=== PATIENT | male | born 1965 | race Caucasian/White ===

== ENCOUNTER 2018-02-18 16:18 | Outpatient (CLI) | payer OTHER ==
[2018-02-18 16:52] LABS: % IRON SATURATION 12 % (20-50); IRON 45 ug/dL (45-182); TOTAL IRON BINDING CAPACITY 385 ug/dL (250-450); TRANSFERRIN 275 mg/dL (180-329)
== END 2018-02-18 16:19 | disposition home or self-care (01) ==
LOC: LAB 16:18
PROVIDERS: ATTEND Internal Medicine
DX: E83.110 Hereditary hemochromatosis (principal)
CPT/HCPCS: 36415; 82728; 83540; 84466

== ENCOUNTER 2018-02-27 13:08 | Emergency (ER) | payer OTHER ==
--- NOTE | 2018-02-27 13:50 | XRAY Preliminary Report ---
Exam: XR FINGER(S) RT IMPRESSION: 1. No fracture seen, however there are 2 tiny calcifications or bone fragments adjacent to the proxim al aspect first distal phalanx on lateral image. [facility] SITE ID: [id number]
--- NOTE | 2018-02-27 13:50 | XRAY Report ---
EXAM: RIGHT FIRST DIGIT RADIOGRAPHY EXAM DATE: 02/27/2018 01:33 PM. CLINICAL HISTORY: Trauma. COMPARISON: None. TECHNIQUE: 3 views. FINDINGS: Bones: No fracture deformity is seen. However, on the lateral image there are 2 tiny calcifications s een near the proximal aspect of distal phalanx near the soft tissue swelling. Joints: Normal. No subluxations. Soft Tissues: There is soft tissue swelling and irregularity without a metallic foreign body. IMPRESSION: 1. No fracture seen, however there are 2 tiny calcifications or bone fragments adjacent to the proxim al aspect first distal phalanx on lateral image. [facility] Referring Provider Line: [phone] SITE ID: [id number]
--- NOTE | 2018-02-27 14:02 | ED Physician Documentation ---
PD HPI UPPER EXT INJURY - Stated complaint Stated Complaint: R THUMB LAC - Chief complaint Chief Complaint: Laceration - History obtained from History obtained from: Patient - History of Present Illness Location: Right, Finger (thumb) Type of injury: Laceration (table saw injury of thumb tip.) Where injury occurred: Home Timing - onset: Today Associated symptoms: No: Weakness, Numbness, Tingling Contributing factors: No: Anticoagulated Review of Systems Skin: reports: Laceration (s). denies: Rash, Lesions Neurologic: denies: Focal weakness, Numbness, Near syncope PD PAST MEDICAL HISTORY - Past Medical History Cardiovascular: Hypertension Respiratory: None Endocrine/Autoimmune: Type 2 diabetes GI: Cirrhosis : None HEENT: Other Psych: Depression Musculoskeletal: None Derm: None - Past Surgical History Past Surgical History: No - Present Medications Home Medications: Ambulatory Orders Medication Instructions Recorded Confirmed amLODIPine [Norvasc] 5 mg PO DAILY 06/12/15 11/17/17 buPROPion [Wellbutrin Xl] 300 mg PO DAILY 06/12/15 11/17/17 Metformin HCl [Fortamet] 2 tab ORAL BID 07/15/16 11/17/17 HYDROcod/ACETAM 5/325 [[place] 5/325] 1 tab PO Q6H PRN #15 tablet 02/27/18 - Allergies Allergies/Adverse Reactions: Allergies Allergy/AdvReac Type Severity Reaction Status Date / Time No Known Drug Allergies Allergy Verified 02/27/18 13:09 - Social History Does the pt smoke?: No Smoking Status: Never smoker Does the pt drink ETOH?: No Does the pt have substance abuse?: No - Immunizations Immunizations are current?: Yes PD ED PE NORMAL - Vitals Vital signs reviewed: Yes - General General: Alert and oriented X 3, No acute distress, Well developed/nourished - Derm Derm: Normal color, Warm and dry - Extremities Extremities: Other (right thumb tip with laceration to fatty tissue, flap lac, but not to bone. It is at edge of nailbed but does not involve it. no FB.) - Neuro Neuro: Alert and oriented X 3, No motor deficit, No sensory deficit Results - Vitals Vitals: Oxygen O2 Source Room air - Rads (name of study) thumb xray Radiology: Prelim report reviewed, EMP read contemporaneously (no obvious fracture; small specks to side of bone of bone density. ) Procedures - Laceration (location) right thumb tip Length in cm: 2 Wound type: Flap, Into subcut fat, Clean. No: Contaminated Neurovascular status: Sensory intact, Motor intact Tendon involvement: No: Tendon Injury Anesthesia: Lidocaine 2% Wound Preparation: Irrigated copiously NS, Wound edges modified Skin layer closure: Nylon, Interrupted, Size #-0 - enter number (4), Sutures - enter # (18) Other: Patient tolerated well, No complications, Neurovascular intact, Dressing applied, Tetanus UTD Complexity: Simple PD MEDICAL DECISION MAKING - ED course Complexity details: re-evaluated patient, considered differential, d/w patient - Sepsis Event Vital Signs: Oxygen O2 Source Room air Departure - Departure Disposition: 01 Home, Self Care Clinical Impression: Laceration of right thumb Qualifiers: Encounter type: initial encounter Damage to nail status: without damage Foreign body presence: without foreign body Qualified Code(s): S61.011A - Laceration without foreign body of right thumb without damage to nail, initial encounter Condition: Stable Record reviewed to determine appropriate education?: Yes Instructions: ED Laceration Hand Follow-Up: Pamela Sung PA [Primary Care Provider] - Prescriptions: HYDROcod/ACETAM 5/325 [[place] 5/325] 1 tab PO Q6H PRN #15 tablet PRN Reason: Pain Comments: It is okay to wash and shower. Clean off the wound twice a day with soap and water, or peroxide and water. Apply some antibiotic ointment to it to keep it moist. Also to watch for signs of infection such as purulence, redness or increasing pain. Return to your primary care or the ER at the specified time for suture removal. Suture removal 9 or 10 days. Tylenol ibuprofen if needed for pains. Add pain meds if needed, particularly the first few days. Discharge Date/Time: 02/27/18 15:33
[2018-02-27] MEDS ORDERED: LIDOCAINE 2% 10 ML MDV SUBQ STA (14:10)
[2018-02-27] MEDS ORDERED: ACETAMINOPHEN 325 MG TABLET PO STA (14:11)
[2018-02-27] MEDS ORDERED: IBUPROFEN 600 MG TABLET PO STA (14:11)
[2018-02-27] MEDS: HYDROcod/ACETAM 5/325 MG TABLET PO STA ×2 (15:19→15:20)
[2018-02-27 15:37] VITALS: BP 125/74
== END 2018-02-27 15:33 | disposition home or self-care (01) ==
LOC: ED 13:08
DX: S61.011A Laceration without foreign body of right thumb without damage to nail, initial encounter (principal); I10 Essential (primary) hypertension; E11.9 Type 2 diabetes mellitus without complications; Z79.84 Long term (current) use of oral hypoglycemic drugs; W31.2XXA Contact with powered woodworking and forming machines, initial encounter; Y92.009 Unspecified place in unspecified non-institutional (private) residence as the place of occurrence of the external cause
CPT/HCPCS: 12001; 73140; 99283; A9270

== ENCOUNTER 2018-03-23 11:10 | Outpatient (CLI) | payer OTHER ==
--- NOTE | 2018-03-23 12:55 | XRAY Report ---
Procedure Date: 03/23/2018 Accession Number: [id number] / [id number] Procedure: XR - Finger(s) RT CPT Code: FULL RESULT: EXAM: Finger(s) RT Right first digit radiography CLINICAL HISTORY: LAC W/O FOREIGN BODY OF THMB/FX OF UNSP PHAL COMPARISON: 03/09/2018 TECHNIQUE: 3 views. FINDINGS: Bones: Normal. No fracture or bone lesion. No osteolysis to suggest osteomyelitis. Joints: Normal. No subluxations. Soft Tissues: Improvement in soft tissue swelling. IMPRESSION: No radiographic evidence of osteomyelitis. Interval improvement in soft tissue swelling. [facility]
== END 2018-03-23 11:11 | disposition home or self-care (01) ==
LOC: DI 11:10
PROVIDERS: ATTEND Registered Nurse
DX: L08.9 Local infection of the skin and subcutaneous tissue, unspecified (principal); S61.011D Laceration without foreign body of right thumb without damage to nail, subsequent encounter; S62.600B Fracture of unspecified phalanx of right index finger, initial encounter for open fracture
CPT/HCPCS: 73140

== ENCOUNTER 2018-04-21 13:31 | Outpatient (CLI) | payer BC ==
[2018-04-21 13:54] LABS: BASOPHILS % (AUTO) 0.7 %; EOSINOPHILS # (AUTO) 0.7 10^3/uL (0.0-0.7); EOSINOPHILS % (AUTO) 13.7 %; HGB - HEMOGLOBIN 12.3 g/dL (14.0-18.0); LYMPHOCYTES % (AUTO) 36.9 %; MEAN CORPUSCULAR HEMOGLOBIN 29.2 pg (27.0-31.0); MEAN CORPUSCULAR HGB CONC 33.2 g/dL (32.0-36.0); MEAN CORPUSCULAR VOLUME 87.9 fL (80.0-94.0); MEAN PLATELET VOLUME 6.3 fL (7.4-11.4); MONOCYTES # (AUTO) 0.5 10^3/uL (0.0-1.0); NEUTROPHILS # (AUTO) 2.1 10^3/uL (1.5-6.6); NEUTROPHILS % (AUTO) 39.7 %; PLT - PLATELET COUNT 237 10^3/uL (130-450); RED BLOOD COUNT 4.21 10^6/uL (4.70-6.10); RED CELL DISTRIBUTION WIDTH 15.9 % (12.0-15.0); WHITE BLOOD COUNT 5.4 x10^3/uL (4.8-10.8)
[2018-04-21 14:14] LABS: ALBUMIN 4.3 g/dL (3.2-5.5); ALBUMIN/GLOBULIN RATIO 1.3 (1.0-2.2); BILIRUBIN,TOTAL 0.8 mg/dL (0.2-1.0); CALCIUM 9.2 mg/dL (8.5-10.3); TOTAL PROTEIN 7.7 g/dL (6.7-8.2)
[2018-04-21 14:15] LABS: PT - PROTHROMBIN TIME 11.8 secs (9.9-12.6)
== END 2018-04-21 13:32 | disposition home or self-care (01) ==
LOC: LAB 13:31
PROVIDERS: ATTEND Internal Medicine
DX: R79.0 Abnormal level of blood mineral (principal); E83.110 Hereditary hemochromatosis
CPT/HCPCS: 36415; 80053; 82105; 82728; 83540; 84466; 85025; 85610

== ENCOUNTER 2018-07-09 16:32 | Outpatient (CLI) | payer OTHER ==
--- NOTE | 2018-07-11 09:52 | XRAY Report ---
Reason: RIGHT THUMB PAIN RED AND SWOLLEN X 4 MONTHS Procedure Date: 07/09/2018 Accession Number: [id number] / [id number] Procedure: XR - Finger(s) RT CPT Code: FULL RESULT: EXAM: FIRST DIGIT RADIOGRAPHY EXAM DATE: 07/09/2018 04:53 PM. CLINICAL HISTORY: RIGHT THUMB PAIN RED AND SWOLLEN X 4 MONTHS. COMPARISON: None. TECHNIQUE: 3 views. FINDINGS: Bones: Normal. No fracture or bone lesion. Joints: Normal. No subluxations. Soft Tissues: Normal. No soft tissue swelling. IMPRESSION: Normal digit radiography. [facility] ADDENDUM: 07/12/18 11:29 In comparison to 02/27/2018 the tiny calcific densities seen adjacent to the base of the first distal phalanx on the lateral projection are no longer appreciated.
== END 2018-07-09 16:33 | disposition home or self-care (01) ==
LOC: DI 16:32
PROVIDERS: ATTEND Nurse Practitioner Family
DX: M79.644 Pain in right finger(s) (principal); M79.89 Other specified soft tissue disorders
CPT/HCPCS: 73140

== ENCOUNTER 2018-08-31 14:27 | Outpatient (CLI) | payer OTHER ==
[2018-08-31 15:19] LABS: % IRON SATURATION 15 % (20-50); IRON 68 ug/dL (45-182); TOTAL IRON BINDING CAPACITY 448 ug/dL (250-450); TRANSFERRIN 320 mg/dL (180-329)
== END 2018-08-31 14:28 | disposition home or self-care (01) ==
LOC: LAB 14:27
PROVIDERS: ATTEND Internal Medicine
DX: E83.110 Hereditary hemochromatosis (principal)
CPT/HCPCS: 36415; 82728; 83540; 84466

== ENCOUNTER 2019-07-02 12:11 | Outpatient (CLI) | payer BC ==
[2019-07-02 12:36] LABS: HGB - HEMOGLOBIN 14.1 g/dL (14.0-18.0); MEAN CORPUSCULAR HEMOGLOBIN 29.1 pg (27.0-31.0); MEAN CORPUSCULAR HGB CONC 32.3 g/dL (32.0-36.0); MEAN CORPUSCULAR VOLUME 90.3 fL (80.0-94.0); MEAN PLATELET VOLUME 8.5 fL (7.4-11.4); RED BLOOD COUNT 4.84 10^6/uL (4.70-6.10); RED CELL DISTRIBUTION WIDTH 14.6 % (12.0-15.0); WHITE BLOOD COUNT 3.8 x10^3/uL (4.8-10.8)
[2019-07-02 12:40] LABS: PT - PROTHROMBIN TIME 11.9 secs (9.9-12.6)
[2019-07-02 12:44] LABS: ALBUMIN 4.1 g/dL (3.2-5.5); ALBUMIN/GLOBULIN RATIO 1.2 (1.0-2.2); BILIRUBIN,TOTAL 0.5 mg/dL (0.2-1.0); CALCIUM 9.1 mg/dL (8.5-10.3); TOTAL PROTEIN 7.5 g/dL (6.7-8.2)
== END 2019-07-02 12:12 | disposition home or self-care (01) ==
LOC: LAB 12:11
PROVIDERS: ATTEND Internal Medicine Gastroenterology
DX: K75.81 Nonalcoholic steatohepatitis (NASH) (principal); K74.60 Unspecified cirrhosis of liver
CPT/HCPCS: 36415; 80053; 82105; 85027; 85610

== ENCOUNTER 2019-07-06 08:00 | Outpatient (CLI) | payer BC ==
[2019-07-06 07:21] LABS: HB2 TOTAL 14.7 g/dL; HEMOGLOBIN A1C 0.64 g/dL; HEMOGLOBIN A1C % 6.1 % (4.6-6.2)
== END 2019-07-06 23:59 | disposition home or self-care (01) ==
LOC: LAB.R 08:00
PROVIDERS: ATTEND Physician Assistant
DX: E11.9 Type 2 diabetes mellitus without complications (principal)
CPT/HCPCS: 83036

== ENCOUNTER 2019-09-13 14:49 | Outpatient (CLI) | payer BC ==
--- NOTE | 2019-09-13 16:25 | MRI Report ---
Reason: LUMBAR BACK PAIN WITH RADICULOPATHY Procedure Date: 09/13/2019 Accession Number: [id number] / [id number] Procedure: MRI - Lumbar Spine W/O CPT Code: Final Report FULL RESULT: EXAM: MRI LUMBAR SPINE WITHOUT CONTRAST EXAM DATE: 09/13/2019 03:59 PM. CLINICAL HISTORY: 54-year-old man with lumbar back pain with right-sided radiculopathy. COMPARISON: None. TECHNIQUE: Multiplanar, multisequence T1-weighted and fluid-sensitive sequences of the lumbar spine from T12 to S1 without contrast. Other: None. FINDINGS: Spinal Canal: The conus terminates at T12-L1. The conus medullaris is unremarkable. The right L5 nerve root is markedly enlarged in the inferior central canal and extending through the neural foramen into the extraforaminal soft tissues. The nerve measures approximately 13 mm in diameter in the extra foraminal soft tissues. Alignment: No scoliosis or spondylolisthesis. Bone Marrow: Five mah-kav-arrbwak lumbar vertebral bodies are present. No gross fractures or bone lesions. No bone marrow edema. Modic type II chronic degenerative changes are present along the anterior corners of L2-L3 and L3-L4 associated with anterior osteophytes. Disk Levels/Facets: T12-L1: Unremarkable. L1-L2: There is disk desiccation without significant height loss. No significant central canal or neural foraminal narrowing. L2-L3: Unremarkable. L3-L4: There is mild disk desiccation and height loss. No significant narrowing of the central canal. Facet hypertrophy results in mild narrowing of the neural foramina bilaterally. L4-L5: There is disk desiccation without significant height loss. Small broad-based disk bulge and facet hypertrophy result in mild narrowing of the central canal with mild to moderate narrowing of the lateral recesses bilaterally. Facet hypertrophy and disk osteophyte complex in the subarticular spaces result in moderate narrowing of the neural foramina bilaterally. L5-S1: Disk height and signal are preserved. No significant narrowing of the central canal. Facet hypertrophy results in mild narrowing of the neural foramina bilaterally. Enlarged right L5 nerve root replaces the perineural fat in the neural foramen. Musculature: Normal. No edema or fatty atrophy. Other: The partially visualized retroperitoneum is unremarkable. IMPRESSION: 1. The right L5 nerve root demonstrates marked expansion in the central canal, neural foramen, and extraforaminal soft tissues, measuring up to 13 mm in diameter. Differential diagnosis includes nerve sheath tumor or inflammatory change. Postcontrast MRI is recommended for better characterization. 2. Multilevel degenerative disk changes. 3. Degenerative changes result in the following: - L3-L4: Mild narrowing of the neural foramina bilaterally. - L4-L5: Mild narrowing of the central canal with mild to moderate narrowing of the lateral recesses bilaterally. Moderate narrowing of the neural foramina bilaterally. - L5-S1: Mild narrowing of the neural foramina bilaterally. Comment: The following findings are so common in adults without low back pain that while we report their presence, they must be interpreted with caution and in the context of the clinical situation. (Reference Ulisesvik et al, Spine 2001) Prevalence of findings in patients without low back pain: Disk degeneration (any evidence): 92% Disk desiccation/T2 signal loss: 83% Disk height loss: 56% Disk bulge: 64% Disk protrusion: 32% Annular tear/high intensity zone: 38% [facility]
== END 2019-09-13 14:50 | disposition home or self-care (01) ==
LOC: DI 14:49
DX: M51.36 Other intervertebral disc degeneration, lumbar region (principal); M48.061 Spinal stenosis, lumbar region without neurogenic claudication; M47.816 Spondylosis without myelopathy or radiculopathy, lumbar region; M47.817 Spondylosis without myelopathy or radiculopathy, lumbosacral region
CPT/HCPCS: 72148

== ENCOUNTER 2019-09-20 13:00 | Outpatient (CLI) | payer BC ==
[2019-09-20 17:28] LABS: ALBUMIN 4.9 g/dL (3.2-5.5); ALBUMIN/GLOBULIN RATIO 1.4 (1.0-2.2); BILIRUBIN,TOTAL 0.7 mg/dL (0.2-1.0); CALCIUM 9.4 mg/dL (8.5-10.3); CREATININE 1.1 mg/dL (0.6-1.2); TOTAL PROTEIN 8.4 g/dL (6.7-8.2)
== END 2019-09-20 13:01 | disposition home or self-care (01) ==
LOC: LAB.S 13:00
DX: K75.81 Nonalcoholic steatohepatitis (NASH) (principal); K74.60 Unspecified cirrhosis of liver
CPT/HCPCS: 36415; 80053

== ENCOUNTER 2020-12-31 14:05 | Outpatient (CLI) | payer BC ==
[2020-12-31 20:08] LABS: BASOPHILS % (AUTO) 0.5 %; EOSINOPHILS # (AUTO) 0.1 10^3/uL (0.0-0.7); EOSINOPHILS % (AUTO) 6.9 %; HCT - HEMATOCRIT 36.2 % (42.0-52.0); HGB - HEMOGLOBIN 11.7 g/dL (14.0-18.0); LYMPHOCYTES # (AUTO) 0.6 10^3/uL (1.5-3.5); LYMPHOCYTES % (AUTO) 27.7 %; MEAN CORPUSCULAR HEMOGLOBIN 36.1 pg (27.0-31.0); MEAN CORPUSCULAR HGB CONC 32.3 g/dL (32.0-36.0); MEAN CORPUSCULAR VOLUME 111.7 fL (80.0-94.0); MEAN PLATELET VOLUME 8.5 fL (7.4-11.4); MONOCYTES # (AUTO) 0.3 10^3/uL (0.0-1.0); MONOCYTES % (AUTO) 13.9 %; NEUTROPHILS % (AUTO) 50.5 %; PLT - PLATELET COUNT 42 10^3/uL (130-450); RED BLOOD COUNT 3.24 10^6/uL (4.70-6.10); RED CELL DISTRIBUTION WIDTH 14.7 % (12.0-15.0)
[2020-12-31 20:31] LABS: ALBUMIN 4.5 g/dL (3.2-5.5); BILIRUBIN,DIRECT 0.1 mg/dL (0.1-0.5); BILIRUBIN,TOTAL 0.9 mg/dL (0.2-1.0); CALCIUM 9.4 mg/dL (8.5-10.3); CREATININE 0.9 mg/dL (0.6-1.2); POTASSIUM 4.3 mmol/L (3.5-5.0); TOTAL PROTEIN 7.2 g/dL (6.7-8.2)
== END 2020-12-31 14:06 | disposition home or self-care (01) ==
LOC: LAB.S 14:05
DX: C92.02 Acute myeloblastic leukemia, in relapse (principal)
CPT/HCPCS: 36415; 80048; 80076; 85025; 86850; 86900; 86901

== ENCOUNTER 2021-04-16 07:59 | Outpatient (CLI) | payer BC ==
[2021-04-16 14:38] LABS: BASOPHILS % (AUTO) 0.4 %; EOSINOPHILS # (AUTO) 0.3 10^3/uL (0.0-0.7); EOSINOPHILS % (AUTO) 10.4 %; HCT - HEMATOCRIT 38.7 % (42.0-52.0); HGB - HEMOGLOBIN 12.8 g/dL (14.0-18.0); LYMPHOCYTES # (AUTO) 0.7 10^3/uL (1.5-3.5); LYMPHOCYTES % (AUTO) 25.9 %; MEAN CORPUSCULAR HEMOGLOBIN 35.4 pg (27.0-31.0); MEAN CORPUSCULAR HGB CONC 33.1 g/dL (32.0-36.0); MEAN CORPUSCULAR VOLUME 106.9 fL (80.0-94.0); MEAN PLATELET VOLUME 9.4 fL (7.4-11.4); MONOCYTES # (AUTO) 0.4 10^3/uL (0.0-1.0); MONOCYTES % (AUTO) 14.1 %; NEUTROPHILS # (AUTO) 1.3 10^3/uL (1.5-6.6); NEUTROPHILS % (AUTO) 49.2 %; PLT - PLATELET COUNT 55 10^3/uL (130-450); RED BLOOD COUNT 3.62 10^6/uL (4.70-6.10); WHITE BLOOD COUNT 2.7 x10^3/uL (4.8-10.8)
[2021-04-16 14:39] LABS: SLIDE REVIEW? Indicated
[2021-04-16 15:09] LABS: ALBUMIN 4.3 g/dL (3.2-5.5); BILIRUBIN,DIRECT 0.1 mg/dL (0.1-0.5); BILIRUBIN,TOTAL 0.6 mg/dL (0.2-1.0); CALCIUM 9.5 mg/dL (8.5-10.3); CREATININE 1.2 mg/dL (0.6-1.2); POTASSIUM 4.1 mmol/L (3.5-5.0); TOTAL PROTEIN 7.1 g/dL (6.7-8.2)
[2021-04-16 16:05] LABS: PLATELET ESTIMATE, MANUAL NORMAL (130-450,000) (NORMAL); PLATELET MORPHOLOGY NORMAL APPEARANCE (NORMAL); RBC MORPHOLOGY (MULTIPLE) NORMAL APPEARANCE (NORMAL)
== END 2021-04-16 08:00 | disposition home or self-care (01) ==
LOC: LAB.S 07:59
PROVIDERS: ATTEND Nurse Practitioner Adult Health
DX: C92.02 Acute myeloblastic leukemia, in relapse (principal)
CPT/HCPCS: 36415; 80048; 80076; 85025; 86850; 86900; 86901

== ENCOUNTER 2021-12-04 14:53 | Outpatient (CLI) | payer BC ==
[2021-12-04 20:34] LABS: BASOPHILS % (AUTO) 0.7 %; EOSINOPHILS % (AUTO) 7.7 %; HCT - HEMATOCRIT 37.8 % (42.0-52.0); HGB - HEMOGLOBIN 12.7 g/dL (14.0-18.0); LYMPHOCYTES % (AUTO) 40.8 %; MEAN CORPUSCULAR HEMOGLOBIN 35.5 pg (27.0-31.0); MEAN CORPUSCULAR HGB CONC 33.6 g/dL (32.0-36.0); MEAN CORPUSCULAR VOLUME 105.6 fL (80.0-94.0); MEAN PLATELET VOLUME 9.6 fL (7.4-11.4); NEUTROPHILS % (AUTO) 38.5 %; PLT - PLATELET COUNT 101 10^3/uL (130-450); RED BLOOD COUNT 3.58 10^6/uL (4.70-6.10); RED CELL DISTRIBUTION WIDTH 13.9 % (12.0-15.0)
[2021-12-04 20:40] LABS: ABNORMAL LYMPHS % (MANUAL) 0 %; BAND NEUTROPHILS % (MANUAL) 0 %
[2021-12-04 20:45] LABS: BILIRUBIN,DIRECT 0.1 mg/dL (0.1-0.5); BILIRUBIN,TOTAL 0.6 mg/dL (0.2-1.0); CALCIUM 9.5 mg/dL (8.5-10.3); CREATININE 1.2 mg/dL (0.6-1.2); POTASSIUM 4.2 mmol/L (3.5-5.0); TOTAL PROTEIN 7.3 g/dL (6.7-8.2)
[2021-12-04 21:10] LABS: EOSINOPHILS # (MANUAL) 0.3 10^3/uL (0-0.7); LYMPHOCYTES % (MANUAL) 32 %; MONOCYTES # (MANUAL) 0.4 10^3/uL (0.0-1.0); NEUTROPHILS # (MANUAL) 1.3 10^3/uL (1.5-6.6); PLATELET ESTIMATE, MANUAL DECREASED (<130,000) (NORMAL); PLATELET MORPHOLOGY NORMAL APPEARANCE (NORMAL); RBC MORPHOLOGY (MULTIPLE) 1+ MACROCYTOSIS (NORMAL); REACTIVE LYMPHS % (MANUAL) 2 %; WBC MORPHOLOGY (MULTIPLE) NORMAL APPEARANCE (NORMAL)
[2021-12-04 21:11] LABS: DIFFERENTIAL COMMENT MANUAL DIFFERENTIAL
== END 2021-12-04 14:54 | disposition home or self-care (01) ==
LOC: LAB.S 14:53
PROVIDERS: ATTEND Nurse Practitioner Adult Health
DX: C92.02 Acute myeloblastic leukemia, in relapse (principal)
CPT/HCPCS: 36415; 80048; 80076; 85025; 86850; 86900; 86901

== ENCOUNTER 2022-03-10 07:14 | Outpatient (CLI) | payer BC ==
[2022-03-10 14:28] LABS: BASOPHILS % (AUTO) 0.4 %; EOSINOPHILS # (AUTO) 0.2 10^3/uL (0.0-0.7); EOSINOPHILS % (AUTO) 6.2 %; HCT - HEMATOCRIT 37.6 % (42.0-52.0); HGB - HEMOGLOBIN 12.5 g/dL (14.0-18.0); LYMPHOCYTES % (AUTO) 34.8 %; MEAN CORPUSCULAR HGB CONC 33.2 g/dL (32.0-36.0); MEAN CORPUSCULAR VOLUME 108.4 fL (80.0-94.0); MEAN PLATELET VOLUME 9.8 fL (7.4-11.4); MONOCYTES # (AUTO) 0.3 10^3/uL (0.0-1.0); MONOCYTES % (AUTO) 11.7 %; NEUTROPHILS # (AUTO) 1.3 10^3/uL (1.5-6.6); NEUTROPHILS % (AUTO) 46.5 %; PLT - PLATELET COUNT 110 10^3/uL (130-450); RED BLOOD COUNT 3.47 10^6/uL (4.70-6.10); RED CELL DISTRIBUTION WIDTH 14.6 % (12.0-15.0); WHITE BLOOD COUNT 2.7 x10^3/uL (4.8-10.8)
[2022-03-10 14:59] LABS: ALBUMIN 4.2 g/dL (3.2-5.5); BILIRUBIN,DIRECT 0.2 mg/dL (0.1-0.5); BILIRUBIN,TOTAL 1.1 mg/dL (0.2-1.0); CALCIUM 9.4 mg/dL (8.5-10.3); CREATININE 1.2 mg/dL (0.6-1.2); PHOSPHORUS 2.9 mg/dL (2.5-4.6); POTASSIUM 3.8 mmol/L (3.5-5.0); TOTAL PROTEIN 7.3 g/dL (6.7-8.2)
[2022-03-10 15:09] LABS: PSA FREE 0.22 ng/mL (0.16-2.81)
[2022-03-10 15:10] LABS: PSA TOTAL 1.11 ng/mL (0.000-2.000)
[2022-03-11 16:07] LABS: FREE TESTOSTERONE(DIRECT) 4.7 pg/mL (7.2-24.0)
== END 2022-03-10 07:15 | disposition home or self-care (01) ==
LOC: LAB.S 07:14
PROVIDERS: ATTEND Student in an Organized Health Care Education/Training Program
DX: E29.1 Testicular hypofunction (principal); N52.9 Male erectile dysfunction, unspecified; C92.02 Acute myeloblastic leukemia, in relapse
CPT/HCPCS: 36415; 80069; 80076; 84153; 84154; 84402; 84403; 85025

== ENCOUNTER 2022-07-12 12:09 | Outpatient (CLI) | payer BC | END 2022-07-12 12:10 | disposition critical access hospital (66) | LOC: EMS 12:09 | DX: J10.1 Influenza due to other identified influenza virus with other respiratory manifestations (principal); R00.0 Tachycardia, unspecified | CPT/HCPCS: A0425; A0429 ==

== ENCOUNTER 2022-07-12 12:12 | Inpatient (IN) | payer BC ==
--- OUTSIDE RECORDS SUMMARY | 2022-07-12 12:20 | EXTERNAL MEDICAL SUMMARY RPT | Continuity of Care Document ---
:1965 Author Organization [facility] Address [address] [place] [address] Phone Care Team Providers Name Role Phone Cresencio Santos Pa-C Unavailable Unavailable Allergies No information. Encounters No information. Functional Status No information. Immunizations No information. Medications date description facility +0000 IPRATROPIUM-ALBUTEROL [facility] nikhil Problems No information. Procedures date description facility +0000 Visit Code Hold [facility] +0000 Nebulizer Treatment [facility] [place] Results/Labs No information. Social History date description facility +0000 Unknown if ever smoked [facility] Vital Signs date measurement value units +0000 BMI BMI 30.37 kg/m2 +0000 BP_diastolic BP_diastolic 70 mmHg +0000 BP_systolic BP_systolic 129 mmHg +0000 heart_rate heart_rate 140 /min +0000 height_metric height_metric 181.61 cm +0000 height_standard height_standard 71.5 in +0000 respiration_rate respiration_rate 56 /min +0000 temperature_metric temperature_metric 39 C +0000 temperature_standard temperature_standard 1 02.2 F +0000 weight_metric weight_metric 99.79 kg +0000 weight_standard weight_standard 220 lb
[2022-07-12] MEDS ORDERED: methylPREDNISolone SUCCINATE 125 MG/2 ML VIAL IVP STA (12:22)
[2022-07-12] MEDS ORDERED: SODIUM CHLORIDE 0.9% 1,000 ML IV STA ×3 (12:22→13:34)
[2022-07-12] MEDS ORDERED: ALBUTEROL NEB 2.5 MG/3 ML INH STA (12:23)
[2022-07-12] MEDS ORDERED: ACETAMINOPHEN 325 MG TABLET PO STA (12:24)
--- NOTE | 2022-07-12 12:29 | ED Physician Documentation ---
History of Present Illness - Stated complaint Stated Complaint: SOA - Chief complaint Chief Complaint: Resp - History obtained from History obtained from: Patient, EMS - History of Present Illness Timing: How many days ago (8) Pain level max: 0 Pain level now: 0 - Additonal information Additional information: Patient is a 57-year-old male who presents to the emergency department with increasing difficulty breathing. He went to the walk-in clinic today and tested positive for influenza A. He reportedly has been sick for the past 8 days. He was having respiratory difficulty and was given a DuoNeb treatment there. This did seem to help him slightly but he remained hypoxic, 88 to 90% on room air. He denies any history of lung issues. He states that he does not use oxygen at home. Does not smoke. He has had decreased oral intake over the past several days. EMS did not provide any further treatments on route. Nothing seems to make it better or worse. No abdominal pain. No vomiting. No diarrhea. Has had a mostly dry cough. Has had rhinorrhea and congestion as well. 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 The patient is on Synthroid, losartan, hydrochlorothiazide, metformin and amlodipine at home. Review of Systems Ten Systems: 10 systems reviewed and negative Constitutional: reports: Fever, Chills Nose: reports: Rhinorrhea / runny nose, Congestion Respiratory: reports: Dyspnea, Cough, Wheezing GI: denies: Vomiting, Diarrhea Skin: denies: Rash Musculoskeletal: denies: Neck pain, Back pain Neurologic: denies: Headache PD PAST MEDICAL HISTORY - Past Medical History Cardiovascular: Hypertension Respiratory: None Endocrine/Autoimmune: Type 2 diabetes GI: Cirrhosis : None HEENT: Other Psych: Depression Musculoskeletal: None Derm: None - Past Surgical History Past Surgical History: No - Present Medications Home Medications: Ambulatory Orders Medication Instructions Recorded Confirmed Amlodipine Besylate [Norvasc] 10 mg PO DAILY 07/12/22 07/12/22 Levothyroxine Sodium [Synthroid] 50 mcg PO QDAC 07/12/22 07/12/22 Losartan Potassium [Cozaar] 100 mg PO DAILY 07/12/22 07/12/22 Omeprazole Magnesium 40 mg PO DAILY 07/12/22 07/12/22 buPROPion [Wellbutrin Sr] 300 mg PO DAILY 07/12/22 07/12/22 hydroCHLOROthiazide [Hydrodiuril] 25 mg PO DAILY 07/12/22 07/12/22 metFORMIN [Glucophage] 500 - 1,000 mg PO BIDWM 07/12/22 07/12/22 - Allergies Allergies/Adverse Reactions: Allergies Allergy/AdvReac Type Severity Reaction Status Date / Time Penicillins Allergy Rash Verified 07/12/22 12:24 - Social History Does the pt smoke?: No Smoking Status: Never smoker Does the pt drink ETOH?: No Does the pt have substance abuse?: No - Immunizations Immunizations are current?: Yes PD ED PE NORMAL - Vitals Vital signs reviewed: Yes - General General: Alert and oriented X 3, Well developed/nourished, Other (Tachypneic, pursed lip breathing) - HEENT HEENT: PERRL, Moist mucous membranes, Pharynx benign - Neck Neck: Supple, no meningeal sign - Cardiac Cardiac: RRR - Respiratory Respiratory: Other (Diminished breath sounds bilaterally with wheezing bilaterally.) - Abdomen Abdomen: Soft, Non tender, Non distended - Derm Derm: Warm and dry - Extremities Extremities: No edema, No calf tenderness / cord - Neuro Neuro: Alert and oriented X 3 - Psych Psych: Normal mood, Normal affect Results - Vitals Vitals: Vital Signs - 24 hr 07/12/22 07/12/22 07/12/22 12:15 12:36 13:22 Temperature 39.4 C H Heart Rate 141 H 141 H 133 H Respiratory 39 H 40 H 42 H Rate Blood Pressure 144/84 H 115/63 O2 Saturation 100 93 If not protocol 4 : Oxygen Flow, liters/minute 07/12/22 13:41 Temperature Heart Rate 124 H Respiratory 40 H Rate Blood Pressure 139/68 H O2 Saturation 94 If not protocol 4 : Oxygen Flow, liters/minute Oxygen O2 Source Nasal cannula - Labs Labs: Laboratory Tests 07/12/22 07/12/22 07/12/22 12:35 12:35 12:35 WBC 3.8 L RBC 3.42 L Hgb 11.9 L Hct 35.1 L MCV 102.6 H MCH 34.8 H MCHC 33.9 RDW 14.6 Plt Count 87 L MPV 11.9 H Neut # (Auto) Not Reportable Lymph # (Auto) Not Reportable Taylor # (Auto) Not Reportable Eos # (Auto) Not Reportable Baso # (Auto) Not Reportable Absolute Nucleated RBC Not Reportable Total Counted 100 Band Neuts % (Manual) 19 H Abnorm Lymph % (Manual) 0 Metamyelocytes % 4 H Nucleated RBC % Not Reportable Neutrophils # (Manual) 2.5 Lymphocytes # (Manual) 0.6 L Monocytes # (Manual) 0.6 Eosinophils # (Manual) 0.0 Basophils # (Manual) 0.0 Differential Comment MANUAL DIFFERENTIAL Manual Slide Review Indicated WBC Morphology 1+ TOXIC GRANULATION Platelet Estimate DECREASED (<130,000) Platelet Morphology NORMAL APPEARANCE RBC Morph Micro Appear 1+ SCHISTOCYTES PT 16.3 H INR 1.5 H APTT 30.7 Sodium 133 L Potassium 3.9 Chloride 96 L Carbon Dioxide 22 Anion Gap 15.0 H BUN 45 H Creatinine 1.8 H Estimated GFR (MDRD) 39 L Glucose 153 H Lactic Acid Calcium 8.9 Total Bilirubin 1.9 H AST 42 ALT 40 Alkaline Phosphatase 57 Total Protein 7.6 Albumin 3.6 Globulin 4.0 Albumin/Globulin Ratio 0.9 L Lipase 28 Nasal Adenovirus (PCR) Nasal B. parapertussis DNA (PCR) Nasal Coronavir 229E PCR Nasal Coronavir HKU1 PCR Nasal Coronavir NL63 PCR Nasal Coronavir OC43 PCR Nasal Enterovir/Rhinovir PCR Nasal Influenza A H3 PCR Nasal Influenza B PCR Nasal Parainfluen 1 PCR Nasal Parainfluen 2 PCR Nasal Parainfluen 3 PCR Nasal Parainfluen 4 PCR Nasal RSV (PCR) Nasal B.pertussis DNA PCR Nasal C.pneumoniae (PCR) Garry Human Metapneumo PCR Nasal M.pneumoniae (PCR) Nasal SARS-CoV-2 (PCR) 07/12/22 07/12/22 12:35 12:35 WBC RBC Hgb Hct MCV MCH MCHC RDW Plt Count MPV Neut # (Auto) Lymph # (Auto) Taylor # (Auto) Eos # (Auto) Baso # (Auto) Absolute Nucleated RBC Total Counted Band Neuts % (Manual) Abnorm Lymph % (Manual) Metamyelocytes % Nucleated RBC % Neutrophils # (Manual) Lymphocytes # (Manual) Monocytes # (Manual) Eosinophils # (Manual) Basophils # (Manual) Differential Comment Manual Slide Review WBC Morphology Platelet Estimate Platelet Morphology RBC Morph Micro Appear PT INR APTT Sodium Potassium Chloride Carbon Dioxide Anion Gap BUN Creatinine Estimated GFR (MDRD) Glucose Lactic Acid 3.5 H* Calcium Total Bilirubin AST ALT Alkaline Phosphatase Total Protein Albumin Globulin Albumin/Globulin Ratio Lipase Nasal Adenovirus (PCR) NOT DETECTED Nasal B. parapertussis DNA (PCR) NOT DETECTED Nasal Coronavir 229E PCR NOT DETECTED Nasal Coronavir HKU1 PCR NOT DETECTED Nasal Coronavir NL63 PCR NOT DETECTED Nasal Coronavir OC43 PCR NOT DETECTED Nasal Enterovir/Rhinovir PCR NOT DETECTED Nasal Influenza A H3 PCR DETECTED A Nasal Influenza B PCR NOT DETECTED Nasal Parainfluen 1 PCR NOT DETECTED Nasal Parainfluen 2 PCR NOT DETECTED Nasal Parainfluen 3 PCR NOT DETECTED Nasal Parainfluen 4 PCR NOT DETECTED Nasal RSV (PCR) NOT DETECTED Nasal B.pertussis DNA PCR NOT DETECTED Nasal C.pneumoniae (PCR) NOT DETECTED Garry Human Metapneumo PCR NOT DETECTED Nasal M.pneumoniae (PCR) NOT DETECTED Nasal SARS-CoV-2 (PCR) NOT DETECTED - Rads (name of study) Chest x-ray Radiology: Final report received, EMP read contemporaneously, See rad report PD MEDICAL DECISION MAKING - ED course Complexity details: reviewed results, re-evaluated patient, considered differential, d/w patient, d/w storage management consultant ED course: 57-year-old male presents to the emergency department after being tested positive for influenza A. He has what appears to be a viral pneumonitis on chest x-ray. Did have significant wheezing and tachypnea. Both improved with Solu-Medrol and nebulizer treatment. He was given IV fluids. Started on the sepsis protocol. Given Levaquin for potential pneumonia. Tachycardia is improving. No hypotension. We will admit the patient for further care. Discussed the case with Dr. Aguirre, hospitalist who accepts This document was made in part using voice recognition software. While efforts are made to proofread this document, sound alike and grammatical errors may occur. 1. Interstitial thickening suggesting interstitial pneumonitis, possibly superimposed on bronchitis. Viral pneumonitis may have this appearance. - Sepsis Event Sepsis Onset Date: 07/12/22 Sepsis Onset Time: 13:30 Current Stage of Sepsis: Sepsis Initial Hypotension: Not hypotensive Possible source of Sepsis: Pulmonary Mental/Cognitive Status: Alert/Oriented X3 Reason for not giving 30ml/kg crystalloid fluids: Not in septic shock Capillary refill: Less than 2 seconds Peripheral Pulse Strength: 3+ Normal Peripheral Pulse Location: Radial Bedside ultrasound performed: No Departure - Departure Disposition: 66 [facility] DC/Xfer Clinical Impression: Influenza A, Hypoxia, Lactic acidosis, Thrombocytopenia, Acute renal insufficiency, AML (acute myeloid leukemia) in remission Sepsis Qualifiers: Sepsis type: sepsis due to unspecified organism Sepsis acute organ dysfunction status: with acute organ dysfunction Severe sepsis acute organ dysfunction type: acute respiratory failure Acute respiratory failure type: with hypoxia Severe sepsis shock status: without septic shock Qualified Code(s): A41.9 - Sepsis, unspecified organism Leukopenia Qualifiers: Leukopenia type: unspecified Qualified Code(s): D72.819 - Decreased white blood cell count, unspecified Condition: Stable Discharge Date/Time: 07/12/22 15:40
[2022-07-12 12:50] LABS: BASOPHILS % (AUTO) 0.5 %; HCT - HEMATOCRIT 35.1 % (42.0-52.0); HGB - HEMOGLOBIN 11.9 g/dL (14.0-18.0); LYMPHOCYTES % (AUTO) 16.9 %; MEAN CORPUSCULAR HEMOGLOBIN 34.8 pg (27.0-31.0); MEAN CORPUSCULAR HGB CONC 33.9 g/dL (32.0-36.0); MEAN CORPUSCULAR VOLUME 102.6 fL (80.0-94.0); MEAN PLATELET VOLUME 11.9 fL (7.4-11.4); MONOCYTES % (AUTO) 16.7 %; NEUTROPHILS % (AUTO) 65.4 %; PLT - PLATELET COUNT 87 10^3/uL (130-450); RED BLOOD COUNT 3.42 10^6/uL (4.70-6.10); RED CELL DISTRIBUTION WIDTH 14.6 % (12.0-15.0); WHITE BLOOD COUNT 3.8 x10^3/uL (4.8-10.8)
[2022-07-12 13:01] LABS: INR 1.5 (0.8-1.2); PT - PROTHROMBIN TIME 16.3 secs (9.9-12.6)
[2022-07-12 13:07] LABS: SLIDE REVIEW? Indicated
[2022-07-12 13:08] LABS: ABNORMAL LYMPHS % (MANUAL) 0 %; ALBUMIN 3.6 g/dL (3.2-5.5); ALBUMIN/GLOBULIN RATIO 0.9 (1.0-2.2); BILIRUBIN,TOTAL 1.9 mg/dL (0.2-1.0); CALCIUM 8.9 mg/dL (8.5-10.3); CREATININE 1.8 mg/dL (0.6-1.2); PARTIAL THROMBOPLASTIN TIME 30.7 secs (24.9-33.3); POTASSIUM 3.9 mmol/L (3.5-5.0); TOTAL PROTEIN 7.6 g/dL (6.7-8.2)
[2022-07-12] MEDS ORDERED: LORazepam 2 MG/ML VIAL IVP STA (13:09)
--- NOTE | 2022-07-12 13:09 | XRAY Report ---
PROCEDURE: Chest 1 View X-Ray INDICATIONS: cough, fever TECHNIQUE: One view of the chest was acquired. COMPARISON: 07/15/2016 FINDINGS: Surgical changes and devices: Overlying monitoring wires. Lungs and pleura: Low lung volumes. Bilateral perihilar thickening of the interstitial markings and bronchial markings. Slight cephalization of central vessels. No dense consolidation, effusion, or pne umothorax. Mediastinum: Mediastinal contours appear normal. Heart size is normal. Bones and chest wall: No suspicious bony lesions. Overlying soft tissues appear unremarkable. IMPRESSION: 1. Interstitial thickening suggesting interstitial pneumonitis, possibly superimposed on bronchitis. Viral pneumonitis may have this appearance. Reviewed by: Lorie Spring MD on 07/12/2022 12:08 PM ALEKSE[facility] Approved by: Lorie Spring MD on 07/12/2022 12:08 PM ALEKSE[facility] Station ID: [id number]
[2022-07-12 13:16] LABS: BAND NEUTROPHILS % (MANUAL) 19 %; LYMPHOCYTES # (MANUAL) 0.6 10^3/uL (1.5-3.5); LYMPHOCYTES % (MANUAL) 15 %; METAMYELOCYTES % (MANUAL) 4 %; MONOCYTES # (MANUAL) 0.6 10^3/uL (0.0-1.0); NEUTROPHILS # (MANUAL) 2.5 10^3/uL (1.5-6.6)
[2022-07-12 13:17] LABS: DIFFERENTIAL COMMENT MANUAL DIFFERENTIAL
[2022-07-12 13:21] LABS: PLATELET ESTIMATE, MANUAL DECREASED (<130,000) (NORMAL); PLATELET MORPHOLOGY NORMAL APPEARANCE (NORMAL)
[2022-07-12 13:22] LABS: WBC MORPHOLOGY (MULTIPLE) 1+ TOXIC GRANULATION (NORMAL)
[2022-07-12 13:27] LABS: LACTIC ACID, VENOUS 3.5 mmol/L (0.5-2.2)
[2022-07-12 13:40] LABS: B. PARAPERTUSSIS- RESP PCR PAN NOT DETECTED; B. PERTUSSIS- RESP PCR PANEL NOT DETECTED; C. PNEUMONIAE- RESP PCR PANEL NOT DETECTED; CORONAVIRUS 229E-RESP PCR NOT DETECTED; CORONAVIRUS HKU1-RESP PCR NOT DETECTED; CORONAVIRUS NL63-RESP PCR NOT DETECTED; CORONAVIRUS OC43-RESP PCR NOT DETECTED; HUMAN METAPNEUMOVIRUS NOT DETECTED; INFLUENZA A H3- RESP PCR PANEL DETECTED; INFLUENZA B - RESP PCR PANEL NOT DETECTED; M. PNEUMONIAE- RESP PCR PANEL NOT DETECTED; PARAINFLUENZA VIRUS 1 NOT DETECTED; PARAINFLUENZA VIRUS 2 NOT DETECTED; PARAINFLUENZA VIRUS 3 NOT DETECTED; PARAINFLUENZA VIRUS 4 NOT DETECTED; RHINOVIRUS/ENTEROVIRUS NOT DETECTED; RSV- RESP PCR PANEL NOT DETECTED; SARS-CoV-2 -RESP PCR PANEL NOT DETECTED
[2022-07-12] MEDS ORDERED: levoFLOXacin 750 MG/150 ML 750 MG/150 ML BAG IV STA (13:48)
[2022-07-12] MEDS ORDERED: ONDANSETRON 4 MG/2 ML VIAL IVP PRN (13:53)
[2022-07-12] MEDS ORDERED: IPRATROPIUM/ALBUTEROL 3 ML NEB INH STA (13:53)
[2022-07-12] MEDS ORDERED: IPRATROPIUM/ALBUTEROL 3 ML NEB INH PRN (13:56)
--- NOTE | 2022-07-12 14:08 | HISTORY & PHYSICAL EXAMINATION ---
Chief Complaint - Chief Complaint Chief Complaint: SOB History of Present Illness - Admitted From Admitted From:: ED - History Obtained From History obtained from: ED provider and his RN - History of Present Illness HPI Comment/Other: This is a 57-year-old white male with history of AML (with chronic neutropenia and thrombocytopenia), hypertension on Amlodipine, diabetes on Metformin and depression on Wellbutrin. He has had upper respiratory congestion and nasal congestion for over a week. He became more short of breath today and went to a walk-in clinic. There he was found to have O2 saturation of 88% on room air and was brought to the emergency room. He was in moderate-severe respiratory distress on presentation, with respiratory rate 40, speaking in 1-word answers, tachycardic at 130 in sinus rhythm, had wheezing and poor air movement (and he has no cardiac or pulmonary past Hx). He was given a nebulizer treatment and started on supplemental oxygen. There has been slight improvement, with heart rate down to 130 and respiratory rate down to 30. Other work-up shows he has a fever of 39.4, an elevated Lactic Acid level of 3.5, his white count is 3.8, he is influenza positive, and chest x-ray shows interstitial pneumonitis. The patient is being admitted to the ICU on the Hospitalist service for treating acute respiratory failure with hypoxia, viral (influenza A) pneumonitis, causing sepsis. The patient was giving his [employer] answers to questions: He does not drink alcohol, does not smoke cigarettes. He works full-time. At the recommendation of respiratory therapy, BiPAP was ordered and instituted, because he was still working hard to breathe. As I entered the room he had just been put on BiPAP, and felt more comfortable, so that he fell asleep, from exhaustion, per RN and RT. There was no information to his RN yet about family history or who lives at home with him. He did not give me any answers to questions as he did not awaken to name. Therefore, by default he will be a Full Code. History - Past Medical History Cardiovascular: reports: Hypertension Respiratory: reports: None Neuro: reports: None Endocrine/Autoimmune: reports: Type 2 diabetes GI: reports: Cirrhosis : reports: None HEENT: reports: Other Psych: reports: Depression Musculoskeletal: reports: None Derm: reports: None MRSA Hx?: Yes Other Past Medical History: AML and has chronic low WBC and low plt count - Family & Social History Family History Comment/Other: Unknown because the patient was in too much respiratory distress before he was put on BiPAP in the ICU and fell asleep Living arrangement: At home Social History Notes: No alcohol intake. He never smoked cigarettes. He works full-time. - Substance History Use: Uses substance without health or social issues: NONE Meds/Allgy - Home Medications Home Medications: Ambulatory Orders Medication Instructions Recorded Confirmed Amlodipine Besylate [Norvasc] 10 mg PO DAILY 07/12/22 07/12/22 Levothyroxine Sodium [Synthroid] 50 mcg PO QDAC 07/12/22 07/12/22 Losartan Potassium [Cozaar] 100 mg PO DAILY 07/12/22 07/12/22 Omeprazole Magnesium 40 mg PO DAILY 07/12/22 07/12/22 buPROPion [Wellbutrin Sr] 300 mg PO DAILY 07/12/22 07/12/22 hydroCHLOROthiazide [Hydrodiuril] 25 mg PO DAILY 07/12/22 07/12/22 metFORMIN [Glucophage] 500 - 1,000 mg PO BIDWM 07/12/22 07/12/22 - Allergies Allergies/Adverse Reactions: Allergies Allergy/AdvReac Type Severity Reaction Status Date / Time Penicillins Allergy Rash Verified 07/12/22 12:24 Review of Systems - Constitutional Constitutional: reports: Fatigue, Other (Has felt terrible for 8 days, poor po intake even liquids for 2 days.) - Respiratory Respiratory: reports: Cough, Orthopnea, SOB at rest, SOB with exertion Exam - Vital Signs Vital Signs: Vital Signs x48h Temp Pulse Resp BP Pulse Ox O2 Flow Rate 07/12/22 13:41 124 H 40 H 139/68 H 94 4 07/12/22 13:22 133 H 42 H 115/63 93 07/12/22 12:36 141 H 40 H 07/12/22 12:15 39.4 C H 141 H 39 H 144/84 H 100 - Physical Exam General Appearance: positive: Mild distress (Fell asleep, appears comfortable on a BIPAP mask) Eyes Bilateral: positive: No lid inflammation ENT: positive: Other (Oral mucosa not seen, since he is on a BIPAP mask) Neck: positive: Nml inspection Respiratory: positive: Breath sounds nml Cardiovascular: positive: Regular rate & rhythm, No murmur Abdomen: positive: Non-tender, Nml bowel sounds Skin: positive: Warm, Dry Extremities: positive: Non-tender, No pedal edema Neurologic/Psychiatric: positive: Other (Lethargic, difficult to awaken. Had no focal deficits before he fell asleep.) Sepsis Event Note (H) - Evaluation Possible source of Sepsis: positive: Pulmonary Conclusion/Plan - Problem List (1) Sepsis Conclusion/Plan: Patient meets sepsis criteria with his fever, tachycardia, his elevated lactic acid level, and low WBC, and with his source being his lungs. Will treat with IV fluids. Follow lactic acid till it normalizes. Treat the underlying pulmonary infection Qualifiers: Sepsis type: sepsis due to unspecified organism Sepsis acute organ dysfunction status: with acute organ dysfunction Severe sepsis acute organ dysfunction type: acute respiratory failure Acute respiratory failure type: with hypoxia Severe sepsis shock status: without septic shock Qualified Code(s): A41.9 - Sepsis, unspecified organism; R65.20 - Severe sepsis without septic shock; J96.01 - Acute respiratory failure with hypoxia (2) Acute respiratory failure with hypoxia Conclusion/Plan: We will give supplemental oxygen, keeping sats greater than 92%. BIPAP in the ICU was ordered and started, because of his persistent increased work of breathing Will treat the underlying flu and pneumonitis (3) Influenza A Conclusion/Plan: As per findings on lab test Infectious isolation precautions will be ordered We will start Tamiflu, 7 day course (4) Viral pneumonitis Conclusion/Plan: Will treat with IV steroids and inhaled steroids. Will order scheduled duo nebs and as needed DuoNeb. Will order Mucinex for pulmonary toilet. He was given empiric Levaquin started in the ED, we will continue this. Starting Florastor. (5) Acute renal insufficiency Conclusion/Plan: His usual creatinine is 1.0-1.2. He presents now with creatinine elevated at 1.8, after 1 week of URI symptoms, suggesting volume depletion as the cause. Will treat with IV hydration. Avoid nephrotoxins. Follow BMP daily (6) DM type 2 (diabetes mellitus, type 2) Conclusion/Plan: Due to his elevated creatinine, will hold the metformin. Will start carb controlled diet, hypoglycemia protocol, fingerstick checks and sliding scale insulin coverage. Check A1c with a.m. labs (7) AML (acute myeloid leukemia) in remission Conclusion/Plan: This is in remission, by history, but he has chronic leukopenia and thrombocytopenia. Follow CBC daily. DVT prophylaxis will be SCDs not anticoagulants. (8) HTN (hypertension) Conclusion/Plan: We will resume his Amlodipine when appropriate - Lab Results Fish Bones: 07/12/22 12:35 07/12/22 12:35 - Diagnostic Imaging Results Diagnostic Imaging Results: positive: Final report reviewed - Other Other Results/Comments: Attestation: The patient is expected to be discharged or transferred to another facility for 96 hours: Yes.
[2022-07-12] MEDS: SODIUM CHLORIDE 0.9% 1,000 ML IV SCH (16:12)
[2022-07-12 16:20] LABS: ABG PCO2 40 mmHg (34-45); ABG PH 7.35 (7.35-7.45)
[2022-07-12 16:21] LABS: ABG BASE EXCESS -3.4 mmol/L (-2.0-3.0); ABG HCO3 21.8 mmol/L (22.0-26.0); ABG OXYGEN SATURATION 96 % (94-98); ABG PO2 89 mmHg (80-100); ABG TCO2 23.1 MMOL/L (21.0-29.0); ALLEN TEST POSITIVE
[2022-07-12 16:25] LABS: LACTIC ACID, VENOUS 3.5 mmol/L (0.5-2.2)
[2022-07-12] MEDS ORDERED: levoFLOXacin 750 MG/150 ML 750 MG/150 ML BAG IV ONE (17:00)
[2022-07-12] MEDS: SODIUM CHLORIDE FLUSH 0.9% 10 ML SYRINGE IVP SCH (17:10)
[2022-07-12] MEDS: SACCHAROMYCES BOULARDII 250 MG CAPSULE PO SCH (17:54)
[2022-07-12] MEDS: INSULIN LISPRO 300 UNIT/3 ML PEN SUBQ SCH ×2 (17:59→21:32)
[2022-07-12] MEDS: IPRATROPIUM/ALBUTEROL 3 ML NEB INH SCH ×2 (18:24→19:00)
[2022-07-12 18:47] LABS: BILIRUBIN,URINE NEGATIVE (NEGATIVE); GLUCOSE, URINE (UA) NEGATIVE (NEGATIVE); KETONES,URINE (UA) NEGATIVE (NEGATIVE); LEUKOCYTE ESTERASE, URINE NEGATIVE (NEGATIVE); NITRITE,URINE NEGATIVE (NEGATIVE); OCCULT BLOOD,URINE TRACE-INTA (NEGATIVE); PROTEIN,URINE TRACE mg/dL (NEGATIVE); UROBILINOGEN,URINE 0.2 (NORMAL) E.U./dL (NORMAL)
[2022-07-12 18:49] LABS: CLARITY,URINE CLEAR (CLEAR)
[2022-07-12] MEDS: BUDESONIDE 0.5 MG/2 ML NEB INH SCH (19:00)
[2022-07-12 20:03] LABS: LACTIC ACID, VENOUS 5.2 mmol/L (0.5-2.2)
[2022-07-12] MEDS ORDERED: SODIUM CHLORIDE 0.9% 1,000 ML IV ONE (20:52)
[2022-07-12] MEDS: OSELTAMIVIR 75 MG CAPSULE PO SCH (21:32)
[2022-07-12] MEDS: guaiFENesin 600 MG TABLET PO SCH (21:32)
[2022-07-12] MEDS: methylPREDNISolone SUCCINATE 40 MG/ML VIAL IVP SCH (21:45)
[2022-07-12] MEDS: ACETAMINOPHEN 325 MG TABLET PO PRN (22:59)
[2022-07-12] MEDS ORDERED: LORazepam 0.5 MG TABLET PO SCH (23:00)
[2022-07-12 23:21] LABS: LACTIC ACID, VENOUS 5.6 mmol/L (0.5-2.2)
[2022-07-12] MEDS ORDERED: LORazepam 2 MG/ML VIAL IVP SCH (23:45)
[2022-07-13] MEDS: SODIUM CHLORIDE FLUSH 0.9% 10 ML SYRINGE IVP SCH ×4 (00:04→21:06)
[2022-07-13 01:21] LABS: ABG BASE EXCESS -3.6 mmol/L (-2.0-3.0); ABG HCO3 21.7 mmol/L (22.0-26.0); ABG PCO2 40 mmHg (34-45); ABG PH 7.35 (7.35-7.45); ABG PO2 115 mmHg (80-100); ABG TCO2 22.9 MMOL/L (21.0-29.0)
[2022-07-13 01:22] LABS: ABG OXYGEN SATURATION 98 % (94-98); ALLEN TEST POSITIVE
[2022-07-13 02:18] LABS: LACTIC ACID, VENOUS 2.3 mmol/L (0.5-2.2)
[2022-07-13] MEDS: SODIUM CHLORIDE 0.9% 1,000 ML IV SCH ×4 (02:20→21:01)
[2022-07-13 05:04] LABS: BASOPHILS % (AUTO) 0.7 %; HCT - HEMATOCRIT 30.5 % (42.0-52.0); HGB - HEMOGLOBIN 10.1 g/dL (14.0-18.0); LYMPHOCYTES % (AUTO) 19.2 %; MEAN CORPUSCULAR HEMOGLOBIN 34.9 pg (27.0-31.0); MEAN CORPUSCULAR HGB CONC 33.1 g/dL (32.0-36.0); MEAN CORPUSCULAR VOLUME 105.5 fL (80.0-94.0); MEAN PLATELET VOLUME 11.3 fL (7.4-11.4); MONOCYTES % (AUTO) 11.8 %; NEUTROPHILS % (AUTO) 68.3 %; PLT - PLATELET COUNT 61 10^3/uL (130-450); RED BLOOD COUNT 2.89 10^6/uL (4.70-6.10); RED CELL DISTRIBUTION WIDTH 14.8 % (12.0-15.0); WHITE BLOOD COUNT 2.7 x10^3/uL (4.8-10.8)
[2022-07-13 05:09] LABS: ABNORMAL LYMPHS % (MANUAL) 0 %
[2022-07-13 05:15] LABS: CALCIUM 7.9 mg/dL (8.5-10.3); CREATININE 1.3 mg/dL (0.6-1.2); MAGNESIUM 1.8 mg/dL (1.7-2.8); PHOSPHORUS 2.5 mg/dL (2.5-4.6); POTASSIUM 3.8 mmol/L (3.5-5.0)
[2022-07-13 05:28] LABS: BAND NEUTROPHILS % (MANUAL) 14 %; DIFFERENTIAL COMMENT MANUAL DIFFERENTIAL; LYMPHOCYTES # (MANUAL) 0.6 10^3/uL (1.5-3.5); LYMPHOCYTES % (MANUAL) 23 %; METAMYELOCYTES % (MANUAL) 1 %; MONOCYTES # (MANUAL) 0.1 10^3/uL (0.0-1.0); MYELOCYTES % (MANUAL) 2 %; NEUTROPHILS # (MANUAL) 1.9 10^3/uL (1.5-6.6); PLATELET ESTIMATE, MANUAL DECREASED (<130,000) (NORMAL); RBC MORPHOLOGY (MULTIPLE) 1+ MACROCYTOSIS (NORMAL); WBC MORPHOLOGY (MULTIPLE) 1+ TOXIC GRANULATION (NORMAL)
[2022-07-13] MEDS: methylPREDNISolone SUCCINATE 40 MG/ML VIAL IVP SCH ×3 (06:04→21:02)
[2022-07-13] MEDS: SACCHAROMYCES BOULARDII 250 MG CAPSULE PO SCH ×2 (07:50→21:01)
[2022-07-13] MEDS: INSULIN LISPRO 300 UNIT/3 ML PEN SUBQ SCH ×4 (07:50→21:06)
[2022-07-13] MEDS: BUDESONIDE 0.5 MG/2 ML NEB INH SCH ×3 (07:50→19:02)
[2022-07-13] MEDS: OSELTAMIVIR 75 MG CAPSULE PO SCH ×2 (07:50→21:02)
[2022-07-13] MEDS: guaiFENesin 600 MG TABLET PO SCH ×2 (07:50→21:02)
[2022-07-13 08:41] LABS: LACTIC ACID, VENOUS 2.2 mmol/L (0.5-2.2)
[2022-07-13] MEDS: IPRATROPIUM/ALBUTEROL 3 ML NEB INH SCH ×4 (11:24→19:01)
[2022-07-13] MEDS: levoFLOXacin 750 MG/150 ML 750 MG/150 ML BAG IV SCH (11:52)
[2022-07-13] MEDS ORDERED: POTASSIUM CHLORIDE 20 MEQ/15 ML UDC PO ONE (12:00)
--- NOTE | 2022-07-13 12:08 | PROVIDER PROGRESS NOTE ---
Subjective - Subjective Pt reports feeling: Improved (He is more awake but respiratory rate is still 38- 40 when on nasal cannula. He did feel better when on BiPAP but was "claustrophobic" and needed Ativan. He has a non-productive cough.) Objective - Vital Signs/Intake & Output Vital Signs: Vital Signs Pulse Pulse Resp BP Pulse Ox O2 Flow Rate 07/13/22 11:43 104 H 07/13/22 11:27 37 L 34 H 4 07/13/22 11:00 97 28 H 98/61 98 4 07/13/22 10:00 101 H 29 H 104/70 99 4 07/13/22 09:00 102 H 31 H 104/63 99 4 Intake & Output: Intake & Output 07/10/22 07/11/22 07/12/22 07/13/22 23:59 23:59 23:59 23:59 Intake Total 3550 1400 Output Total 325 250 Balance 3225 1150 - Objective General Appearance: positive: Moderate distress (Resp rate 38-40 while speaking to me, wearing O2 per n.c.) Eyes Bilateral: positive: Other (L eye has discharge) ENT: positive: No signs of dehydration Neck: positive: Nml inspection, No JVD Respiratory: positive: Rhonchi Cardiovascular: positive: Regular rate & rhythm, No murmur Abdomen: positive: Non-tender, No distention Skin: positive: Warm, Dry Extremities: positive: Non-tender, No pedal edema Neurologic/Psychiatric: positive: Oriented x3 (gtrossly non-focal) - Lab Results Fish Bones: 07/13/22 04:55 07/13/22 04:55 Other Labs: Lab Results x24hrs 07/13/22 07/13/22 07/13/22 Range/Units 08:22 05:09 04:55 WBC (4.8-10.8) x10^3/uL RBC (4.70-6.10) 10^6/uL Hgb (14.0-18.0) g/dL Hct (42.0-52.0) % MCV (80.0-94.0) fL MCH (27.0-31.0) pg MCHC (32.0-36.0) g/dL RDW (12.0-15.0) % Plt Count (130-450) 10^3/uL MPV (7.4-11.4) fL Neut # (Auto) Lymph # (Auto) [place] # (Auto) Eos # (Auto) Baso # (Auto) Absolute Nucleated RBC Total Counted Band Neuts % (Manual) (0 - 10) % Abnorm Lymph % (Manual) % Metamyelocytes % ( - 0) % Myelocytes % ( - 0) % Nucleated RBC % Neutrophils # (Manual) (1.5-6.6) 10^3/uL Lymphocytes # (Manual) (1.5-3.5) 10^3/uL Monocytes # (Manual) (0.0-1.0) 10^3/uL Eosinophils # (Manual) (0-0.7) 10^3/uL Basophils # (Manual) (0-0.1) 10^3/uL Differential Comment Manual Slide Review WBC Morphology (NORMAL) Platelet Estimate (NORMAL) Platelet Morphology (NORMAL) RBC Morph Micro Appear (NORMAL) PT (9.9-12.6) secs INR (0.8-1.2) APTT (24.9-33.3) secs Bld Gas Analysis Time Sample Site ABG pH (7.35-7.45) ABG pCO2 (34-45) mmHg ABG pO2 (80-100) mmHg ABG HCO3 (22.0-26.0) mmol/L ABG Total CO2 (21.0-29.0) MMOL/L ABG O2 Saturation (94-98) % ABG Base Excess (-2.0-3.0) mmol/L Mikael Test O2 Delivery Device O2 Liters/Min LPM FiO2 Pressure Support Vent cmH2O EPAP cmH2O IPAP cmH2O Sodium 132 L (135-145) mmol/L Potassium 3.8 (3.5-5.0) mmol/L Chloride 99 L (101-111) mmol/L Carbon Dioxide 21 (21-32) mmol/L Anion Gap 12.0 (6-13) BUN 48 H (6-20) mg/dL Creatinine 1.3 H (0.6-1.2) mg/dL Estimated GFR (MDRD) 57 L (>89) Glucose 215 H (70-100) mg/dL Lactic Acid 2.2 2.0 (0.5-2.2) mmol/L Calcium 7.9 L (8.5-10.3) mg/dL Phosphorus 2.5 (2.5-4.6) mg/dL Magnesium 1.8 (1.7-2.8) mg/dL Total Bilirubin (0.2-1.0) mg/dL AST (10-42) IU/L ALT (10-60) IU/L Alkaline Phosphatase (42-121) IU/L Troponin I High Sens (2.3-19.7) ng/L Total Protein (6.7-8.2) g/dL Albumin (3.2-5.5) g/dL Globulin (2.1-4.2) g/dL Albumin/Globulin Ratio (1.0-2.2) Lipase (22-51) U/L Urine Color Urine Clarity (CLEAR) Urine pH (5.0-7.5) PH Ur Specific [place] (1.002-1.030) Urine Protein (NEGATIVE) mg/dL Urine Glucose (UA) (NEGATIVE) mg/dL Urine Ketones (NEGATIVE) mg/dL Urine Occult Blood (NEGATIVE) Urine Nitrite (NEGATIVE) Urine Bilirubin (NEGATIVE) Urine Urobilinogen (NORMAL) E.U./dL Ur Leukocyte Esterase (NEGATIVE) Ur Microscopic Review Urine Culture Comments Nasal Adenovirus (PCR) Nasal B. parapertussis DNA (PCR) Nasal Coronavir 229E PCR Nasal Coronavir HKU1 PCR Nasal Coronavir NL63 PCR Nasal Coronavir OC43 PCR Nasal Enterovir/Rhinovir PCR Nasal Influenza A H3 PCR Nasal Influenza B PCR Nasal Parainfluen 1 PCR Nasal Parainfluen 2 PCR Nasal Parainfluen 3 PCR Nasal Parainfluen 4 PCR Nasal RSV (PCR) Nasal Screen MRSA (PCR) (NEGATIVE) Nasal B.pertussis DNA PCR Nasal C.pneumoniae (PCR) Garry Human Metapneumo PCR Nasal M.pneumoniae (PCR) Nasal SARS-CoV-2 (PCR) 07/13/22 07/13/22 07/13/22 Range/Units 04:55 01:44 01:10 WBC 2.7 L (4.8-10.8) x10^3/uL RBC 2.89 L (4.70-6.10) 10^6/uL Hgb 10.1 L (14.0-18.0) g/dL Hct 30.5 L (42.0-52.0) % MCV 105.5 H (80.0-94.0) fL MCH 34.9 H (27.0-31.0) pg MCHC 33.1 (32.0-36.0) g/dL RDW 14.8 (12.0-15.0) % Plt Count 61 L (130-450) 10^3/uL MPV 11.3 (7.4-11.4) fL Neut # (Auto) Not Reportable Lymph # (Auto) Not Reportable [place] # (Auto) Not Reportable Eos # (Auto) Not Reportable Baso # (Auto) Not Reportable Absolute Nucleated RBC Not Reportable Total Counted 100 Band Neuts % (Manual) 14 H (0 - 10) % Abnorm Lymph % (Manual) 0 % Metamyelocytes % 1 H ( - 0) % Myelocytes % 2 H ( - 0) % Nucleated RBC % Not Reportable Neutrophils # (Manual) 1.9 (1.5-6.6) 10^3/uL Lymphocytes # (Manual) 0.6 L (1.5-3.5) 10^3/uL Monocytes # (Manual) 0.1 (0.0-1.0) 10^3/uL Eosinophils # (Manual) 0.0 (0-0.7) 10^3/uL Basophils # (Manual) 0.0 (0-0.1) 10^3/uL Differential Comment MANUAL DIFFERENTIAL Manual Slide Review WBC Morphology 1+ TOXIC GRANULATION (NORMAL) Platelet Estimate DECREASED (<130,000) (NORMAL) Platelet Morphology (NORMAL) RBC Morph Micro Appear 1+ MACROCYTOSIS (NORMAL) PT (9.9-12.6) secs INR (0.8-1.2) APTT (24.9-33.3) secs Bld Gas Analysis Time 0120 Sample Site RIGHT RADIAL ABG pH 7.35 (7.35-7.45) ABG pCO2 40 (34-45) mmHg ABG pO2 115 H (80-100) mmHg ABG HCO3 21.7 L (22.0-26.0) mmol/L ABG Total CO2 22.9 (21.0-29.0) MMOL/L ABG O2 Saturation 98 (94-98) % ABG Base Excess -3.6 L (-2.0-3.0) mmol/L Mikael Test POSITIVE O2 Delivery Device BiPAP O2 Liters/Min LPM FiO2 80.00 Pressure Support Vent 4 cmH2O EPAP 4 cmH2O IPAP 8 cmH2O Sodium (135-145) mmol/L Potassium (3.5-5.0) mmol/L Chloride (101-111) mmol/L Carbon Dioxide (21-32) mmol/L Anion Gap (6-13) BUN (6-20) mg/dL Creatinine (0.6-1.2) mg/dL Estimated GFR (MDRD) (>89) Glucose (70-100) mg/dL Lactic Acid 2.3 H (0.5-2.2) mmol/L Calcium (8.5-10.3) mg/dL Phosphorus (2.5-4.6) mg/dL Magnesium (1.7-2.8) mg/dL Total Bilirubin (0.2-1.0) mg/dL AST (10-42) IU/L ALT (10-60) IU/L Alkaline Phosphatase (42-121) IU/L Troponin I High Sens (2.3-19.7) ng/L Total Protein (6.7-8.2) g/dL Albumin (3.2-5.5) g/dL Globulin (2.1-4.2) g/dL Albumin/Globulin Ratio (1.0-2.2) Lipase (22-51) U/L Urine Color Urine Clarity (CLEAR) Urine pH (5.0-7.5) PH Ur Specific [place] (1.002-1.030) Urine Protein (NEGATIVE) mg/dL Urine Glucose (UA) (NEGATIVE) mg/dL Urine Ketones (NEGATIVE) mg/dL Urine Occult Blood (NEGATIVE) Urine Nitrite (NEGATIVE) Urine Bilirubin (NEGATIVE) Urine Urobilinogen (NORMAL) E.U./dL Ur Leukocyte Esterase (NEGATIVE) Ur Microscopic Review Urine Culture Comments Nasal Adenovirus (PCR) Nasal B. parapertussis DNA (PCR) Nasal Coronavir 229E PCR Nasal Coronavir HKU1 PCR Nasal Coronavir NL63 PCR Nasal Coronavir OC43 PCR Nasal Enterovir/Rhinovir PCR Nasal Influenza A H3 PCR Nasal Influenza B PCR Nasal Parainfluen 1 PCR Nasal Parainfluen 2 PCR Nasal Parainfluen 3 PCR Nasal Parainfluen 4 PCR Nasal RSV (PCR) Nasal Screen MRSA (PCR) (NEGATIVE) Nasal B.pertussis DNA PCR Nasal C.pneumoniae (PCR) Garry Human Metapneumo PCR Nasal M.pneumoniae (PCR) Nasal SARS-CoV-2 (PCR) 07/12/22 07/12/22 07/12/22 Range/Units 22:57 19:14 19:14 WBC (4.8-10.8) x10^3/uL RBC (4.70-6.10) 10^6/uL Hgb (14.0-18.0) g/dL Hct (42.0-52.0) % MCV (80.0-94.0) fL MCH (27.0-31.0) pg MCHC (32.0-36.0) g/dL RDW (12.0-15.0) % Plt Count (130-450) 10^3/uL MPV (7.4-11.4) fL Neut # (Auto) Lymph # (Auto) [place] # (Auto) Eos # (Auto) Baso # (Auto) Absolute Nucleated RBC Total Counted Band Neuts % (Manual) (0 - 10) % Abnorm Lymph % (Manual) % Metamyelocytes % ( - 0) % Myelocytes % ( - 0) % Nucleated RBC % Neutrophils # (Manual) (1.5-6.6) 10^3/uL Lymphocytes # (Manual) (1.5-3.5) 10^3/uL Monocytes # (Manual) (0.0-1.0) 10^3/uL Eosinophils # (Manual) (0-0.7) 10^3/uL Basophils # (Manual) (0-0.1) 10^3/uL Differential Comment Manual Slide Review WBC Morphology (NORMAL) Platelet Estimate (NORMAL) Platelet Morphology (NORMAL) RBC Morph Micro Appear (NORMAL) PT (9.9-12.6) secs INR (0.8-1.2) APTT (24.9-33.3) secs Bld Gas Analysis Time Sample Site ABG pH (7.35-7.45) ABG pCO2 (34-45) mmHg ABG pO2 (80-100) mmHg ABG HCO3 (22.0-26.0) mmol/L ABG Total CO2 (21.0-29.0) MMOL/L ABG O2 Saturation (94-98) % ABG Base Excess (-2.0-3.0) mmol/L Mikael Test O2 Delivery Device O2 Liters/Min LPM FiO2 Pressure Support Vent cmH2O EPAP cmH2O IPAP cmH2O Sodium (135-145) mmol/L Potassium (3.5-5.0) mmol/L Chloride (101-111) mmol/L Carbon Dioxide (21-32) mmol/L Anion Gap (6-13) BUN (6-20) mg/dL Creatinine (0.6-1.2) mg/dL Estimated GFR (MDRD) (>89) Glucose (70-100) mg/dL Lactic Acid 5.6 H* 5.2 H* (0.5-2.2) mmol/L Calcium (8.5-10.3) mg/dL Phosphorus (2.5-4.6) mg/dL Magnesium (1.7-2.8) mg/dL Total Bilirubin (0.2-1.0) mg/dL AST (10-42) IU/L ALT (10-60) IU/L Alkaline Phosphatase (42-121) IU/L Troponin I High Sens 14.4 (2.3-19.7) ng/L Total Protein (6.7-8.2) g/dL Albumin (3.2-5.5) g/dL Globulin (2.1-4.2) g/dL Albumin/Globulin Ratio (1.0-2.2) Lipase (22-51) U/L Urine Color Urine Clarity (CLEAR) Urine pH (5.0-7.5) PH Ur Specific [place] (1.002-1.030) Urine Protein (NEGATIVE) mg/dL Urine Glucose (UA) (NEGATIVE) mg/dL Urine Ketones (NEGATIVE) mg/dL Urine Occult Blood (NEGATIVE) Urine Nitrite (NEGATIVE) Urine Bilirubin (NEGATIVE) Urine Urobilinogen (NORMAL) E.U./dL Ur Leukocyte Esterase (NEGATIVE) Ur Microscopic Review Urine Culture Comments Nasal Adenovirus (PCR) Nasal B. parapertussis DNA (PCR) Nasal Coronavir 229E PCR Nasal Coronavir HKU1 PCR Nasal Coronavir NL63 PCR Nasal Coronavir OC43 PCR Nasal Enterovir/Rhinovir PCR Nasal Influenza A H3 PCR Nasal Influenza B PCR Nasal Parainfluen 1 PCR Nasal Parainfluen 2 PCR Nasal Parainfluen 3 PCR Nasal Parainfluen 4 PCR Nasal RSV (PCR) Nasal Screen MRSA (PCR) (NEGATIVE) Nasal B.pertussis DNA PCR Nasal C.pneumoniae (PCR) Garry Human Metapneumo PCR Nasal M.pneumoniae (PCR) Nasal SARS-CoV-2 (PCR) 07/12/22 07/12/22 07/12/22 Range/Units 18:35 16:12 15:55 WBC (4.8-10.8) x10^3/uL RBC (4.70-6.10) 10^6/uL Hgb (14.0-18.0) g/dL Hct (42.0-52.0) % MCV (80.0-94.0) fL MCH (27.0-31.0) pg MCHC (32.0-36.0) g/dL RDW (12.0-15.0) % Plt Count (130-450) 10^3/uL MPV (7.4-11.4) fL Neut # (Auto) Lymph # (Auto) [place] # (Auto) Eos # (Auto) Baso # (Auto) Absolute Nucleated RBC Total Counted Band Neuts % (Manual) (0 - 10) % Abnorm Lymph % (Manual) % Metamyelocytes % ( - 0) % Myelocytes % ( - 0) % Nucleated RBC % Neutrophils # (Manual) (1.5-6.6) 10^3/uL Lymphocytes # (Manual) (1.5-3.5) 10^3/uL Monocytes # (Manual) (0.0-1.0) 10^3/uL Eosinophils # (Manual) (0-0.7) 10^3/uL Basophils # (Manual) (0-0.1) 10^3/uL Differential Comment Manual Slide Review WBC Morphology (NORMAL) Platelet Estimate (NORMAL) Platelet Morphology (NORMAL) RBC Morph Micro Appear (NORMAL) PT (9.9-12.6) secs INR (0.8-1.2) APTT (24.9-33.3) secs Bld Gas Analysis Time 1620 Sample Site ABG pH 7.35 (7.35-7.45) ABG pCO2 40 (34-45) mmHg ABG pO2 89 (80-100) mmHg ABG HCO3 21.8 L (22.0-26.0) mmol/L ABG Total CO2 23.1 (21.0-29.0) MMOL/L ABG O2 Saturation 96 (94-98) % ABG Base Excess -3.4 L (-2.0-3.0) mmol/L Mikael Test POSITIVE O2 Delivery Device NASAL CANNULA O2 Liters/Min 4.00 LPM FiO2 Pressure Support Vent cmH2O EPAP cmH2O IPAP cmH2O Sodium (135-145) mmol/L Potassium (3.5-5.0) mmol/L Chloride (101-111) mmol/L Carbon Dioxide (21-32) mmol/L Anion Gap (6-13) BUN (6-20) mg/dL Creatinine (0.6-1.2) mg/dL Estimated GFR (MDRD) (>89) Glucose (70-100) mg/dL Lactic Acid 3.5 H* (0.5-2.2) mmol/L Calcium (8.5-10.3) mg/dL Phosphorus (2.5-4.6) mg/dL Magnesium (1.7-2.8) mg/dL Total Bilirubin (0.2-1.0) mg/dL AST (10-42) IU/L ALT (10-60) IU/L Alkaline Phosphatase (42-121) IU/L Troponin I High Sens (2.3-19.7) ng/L Total Protein (6.7-8.2) g/dL Albumin (3.2-5.5) g/dL Globulin (2.1-4.2) g/dL Albumin/Globulin Ratio (1.0-2.2) Lipase (22-51) U/L Urine Color DARK YELLOW Urine Clarity CLEAR (CLEAR) Urine pH 6.0 (5.0-7.5) PH Ur Specific [place] 1.025 (1.002-1.030) Urine Protein TRACE (NEGATIVE) mg/dL Urine Glucose (UA) NEGATIVE (NEGATIVE) mg/dL Urine Ketones NEGATIVE (NEGATIVE) mg/dL Urine Occult Blood TRACE-INTA (NEGATIVE) Urine Nitrite NEGATIVE (NEGATIVE) Urine Bilirubin NEGATIVE (NEGATIVE) Urine Urobilinogen 0.2 (NORMAL) (NORMAL) E.U./dL Ur Leukocyte Esterase NEGATIVE (NEGATIVE) Ur Microscopic Review NOT INDICATED Urine Culture Comments NOT INDICATED Nasal Adenovirus (PCR) Nasal B. parapertussis DNA (PCR) Nasal Coronavir 229E PCR Nasal Coronavir HKU1 PCR Nasal Coronavir NL63 PCR Nasal Coronavir OC43 PCR Nasal Enterovir/Rhinovir PCR Nasal Influenza A H3 PCR Nasal Influenza B PCR Nasal Parainfluen 1 PCR Nasal Parainfluen 2 PCR Nasal Parainfluen 3 PCR Nasal Parainfluen 4 PCR Nasal RSV (PCR) Nasal Screen MRSA (PCR) (NEGATIVE) Nasal B.pertussis DNA PCR Nasal C.pneumoniae (PCR) Garry Human Metapneumo PCR Nasal M.pneumoniae (PCR) Nasal SARS-CoV-2 (PCR) 07/12/22 07/12/22 07/12/22 Range/Units 15:50 12:35 12:35 WBC (4.8-10.8) x10^3/uL RBC (4.70-6.10) 10^6/uL Hgb (14.0-18.0) g/dL Hct (42.0-52.0) % MCV (80.0-94.0) fL MCH (27.0-31.0) pg MCHC (32.0-36.0) g/dL RDW (12.0-15.0) % Plt Count (130-450) 10^3/uL MPV (7.4-11.4) fL Neut # (Auto) Lymph # (Auto) [place] # (Auto) Eos # (Auto) Baso # (Auto) Absolute Nucleated RBC Total Counted Band Neuts % (Manual) (0 - 10) % Abnorm Lymph % (Manual) % Metamyelocytes % ( - 0) % Myelocytes % ( - 0) % Nucleated RBC % Neutrophils # (Manual) (1.5-6.6) 10^3/uL Lymphocytes # (Manual) (1.5-3.5) 10^3/uL Monocytes # (Manual) (0.0-1.0) 10^3/uL Eosinophils # (Manual) (0-0.7) 10^3/uL Basophils # (Manual) (0-0.1) 10^3/uL Differential Comment Manual Slide Review WBC Morphology (NORMAL) Platelet Estimate (NORMAL) Platelet Morphology (NORMAL) RBC Morph Micro Appear (NORMAL) PT (9.9-12.6) secs INR (0.8-1.2) APTT (24.9-33.3) secs Bld Gas Analysis Time Sample Site ABG pH (7.35-7.45) ABG pCO2 (34-45) mmHg ABG pO2 (80-100) mmHg ABG HCO3 (22.0-26.0) mmol/L ABG Total CO2 (21.0-29.0) MMOL/L ABG O2 Saturation (94-98) % ABG Base Excess (-2.0-3.0) mmol/L Mikael Test O2 Delivery Device O2 Liters/Min LPM FiO2 Pressure Support Vent cmH2O EPAP cmH2O IPAP cmH2O Sodium (135-145) mmol/L Potassium (3.5-5.0) mmol/L Chloride (101-111) mmol/L Carbon Dioxide (21-32) mmol/L Anion Gap (6-13) BUN (6-20) mg/dL Creatinine (0.6-1.2) mg/dL Estimated GFR (MDRD) (>89) Glucose (70-100) mg/dL Lactic Acid 3.5 H* (0.5-2.2) mmol/L Calcium (8.5-10.3) mg/dL Phosphorus (2.5-4.6) mg/dL Magnesium (1.7-2.8) mg/dL Total Bilirubin (0.2-1.0) mg/dL AST (10-42) IU/L ALT (10-60) IU/L Alkaline Phosphatase (42-121) IU/L Troponin I High Sens (2.3-19.7) ng/L Total Protein (6.7-8.2) g/dL Albumin (3.2-5.5) g/dL Globulin (2.1-4.2) g/dL Albumin/Globulin Ratio (1.0-2.2) Lipase (22-51) U/L Urine Color Urine Clarity (CLEAR) Urine pH (5.0-7.5) PH Ur Specific [place] (1.002-1.030) Urine Protein (NEGATIVE) mg/dL Urine Glucose (UA) (NEGATIVE) mg/dL Urine Ketones (NEGATIVE) mg/dL Urine Occult Blood (NEGATIVE) Urine Nitrite (NEGATIVE) Urine Bilirubin (NEGATIVE) Urine Urobilinogen (NORMAL) E.U./dL Ur Leukocyte Esterase (NEGATIVE) Ur Microscopic Review Urine Culture Comments Nasal Adenovirus (PCR) NOT DETECTED Nasal B. parapertussis DNA (PCR) NOT DETECTED Nasal Coronavir 229E PCR NOT DETECTED Nasal Coronavir HKU1 PCR NOT DETECTED Nasal Coronavir NL63 PCR NOT DETECTED Nasal Coronavir OC43 PCR NOT DETECTED Nasal Enterovir/Rhinovir PCR NOT DETECTED Nasal Influenza A H3 PCR DETECTED A Nasal Influenza B PCR NOT DETECTED Nasal Parainfluen 1 PCR NOT DETECTED Nasal Parainfluen 2 PCR NOT DETECTED Nasal Parainfluen 3 PCR NOT DETECTED Nasal Parainfluen 4 PCR NOT DETECTED Nasal RSV (PCR) NOT DETECTED Nasal Screen MRSA (PCR) NEGATIVE (NEGATIVE) Nasal B.pertussis DNA PCR NOT DETECTED Nasal C.pneumoniae (PCR) NOT DETECTED Garry Human Metapneumo PCR NOT DETECTED Nasal M.pneumoniae (PCR) NOT DETECTED Nasal SARS-CoV-2 (PCR) NOT DETECTED 07/12/22 07/12/22 07/12/22 Range/Units 12:35 12:35 12:35 WBC 3.8 L (4.8-10.8) x10^3/uL RBC 3.42 L (4.70-6.10) 10^6/uL Hgb 11.9 L (14.0-18.0) g/dL Hct 35.1 L (42.0-52.0) % MCV 102.6 H (80.0-94.0) fL MCH 34.8 H (27.0-31.0) pg MCHC 33.9 (32.0-36.0) g/dL RDW 14.6 (12.0-15.0) % Plt Count 87 L (130-450) 10^3/uL MPV 11.9 H (7.4-11.4) fL Neut # (Auto) Not Reportable Lymph # (Auto) Not Reportable [place] # (Auto) Not Reportable Eos # (Auto) Not Reportable Baso # (Auto) Not Reportable Absolute Nucleated RBC Not Reportable Total Counted 100 Band Neuts % (Manual) 19 H (0 - 10) % Abnorm Lymph % (Manual) 0 % Metamyelocytes % 4 H ( - 0) % Myelocytes % ( - 0) % Nucleated RBC % Not Reportable Neutrophils # (Manual) 2.5 (1.5-6.6) 10^3/uL Lymphocytes # (Manual) 0.6 L (1.5-3.5) 10^3/uL Monocytes # (Manual) 0.6 (0.0-1.0) 10^3/uL Eosinophils # (Manual) 0.0 (0-0.7) 10^3/uL Basophils # (Manual) 0.0 (0-0.1) 10^3/uL Differential Comment MANUAL DIFFERENTIAL Manual Slide Review Indicated WBC Morphology 1+ TOXIC GRANULATION (NORMAL) Platelet Estimate DECREASED (<130,000) (NORMAL) Platelet Morphology NORMAL APPEARANCE (NORMAL) RBC Morph Micro Appear 1+ SCHISTOCYTES (NORMAL) PT 16.3 H (9.9-12.6) secs INR 1.5 H (0.8-1.2) APTT 30.7 (24.9-33.3) secs Bld Gas Analysis Time Sample Site ABG pH (7.35-7.45) ABG pCO2 (34-45) mmHg ABG pO2 (80-100) mmHg ABG HCO3 (22.0-26.0) mmol/L ABG Total CO2 (21.0-29.0) MMOL/L ABG O2 Saturation (94-98) % ABG Base Excess (-2.0-3.0) mmol/L Mikael Test O2 Delivery Device O2 Liters/Min LPM FiO2 Pressure Support Vent cmH2O EPAP cmH2O IPAP cmH2O Sodium 133 L (135-145) mmol/L Potassium 3.9 (3.5-5.0) mmol/L Chloride 96 L (101-111) mmol/L Carbon Dioxide 22 (21-32) mmol/L Anion Gap 15.0 H (6-13) BUN 45 H (6-20) mg/dL Creatinine 1.8 H (0.6-1.2) mg/dL Estimated GFR (MDRD) 39 L (>89) Glucose 153 H (70-100) mg/dL Lactic Acid (0.5-2.2) mmol/L Calcium 8.9 (8.5-10.3) mg/dL Phosphorus (2.5-4.6) mg/dL Magnesium (1.7-2.8) mg/dL Total Bilirubin 1.9 H (0.2-1.0) mg/dL AST 42 (10-42) IU/L ALT 40 (10-60) IU/L Alkaline Phosphatase 57 (42-121) IU/L Troponin I High Sens (2.3-19.7) ng/L Total Protein 7.6 (6.7-8.2) g/dL Albumin 3.6 (3.2-5.5) g/dL Globulin 4.0 (2.1-4.2) g/dL Albumin/Globulin Ratio 0.9 L (1.0-2.2) Lipase 28 (22-51) U/L Urine Color Urine Clarity (CLEAR) Urine pH (5.0-7.5) PH Ur Specific [place] (1.002-1.030) Urine Protein (NEGATIVE) mg/dL Urine Glucose (UA) (NEGATIVE) mg/dL Urine Ketones (NEGATIVE) mg/dL Urine Occult Blood (NEGATIVE) Urine Nitrite (NEGATIVE) Urine Bilirubin (NEGATIVE) Urine Urobilinogen (NORMAL) E.U./dL Ur Leukocyte Esterase (NEGATIVE) Ur Microscopic Review Urine Culture Comments Nasal Adenovirus (PCR) Nasal B. parapertussis DNA (PCR) Nasal Coronavir 229E PCR Nasal Coronavir HKU1 PCR Nasal Coronavir NL63 PCR Nasal Coronavir OC43 PCR Nasal Enterovir/Rhinovir PCR Nasal Influenza A H3 PCR Nasal Influenza B PCR Nasal Parainfluen 1 PCR Nasal Parainfluen 2 PCR Nasal Parainfluen 3 PCR Nasal Parainfluen 4 PCR Nasal RSV (PCR) Nasal Screen MRSA (PCR) (NEGATIVE) Nasal B.pertussis DNA PCR Nasal C.pneumoniae (PCR) Garry Human Metapneumo PCR Nasal M.pneumoniae (PCR) Nasal SARS-CoV-2 (PCR) Sepsis Event Note (H) - Evaluation Current Stage of Sepsis: Resolved Possible source of Sepsis: positive: Pulmonary - Sepsis Criteria Sepsis Criteria: Recorded Temperature greater than 38.3C or Less than 36C, Recorded Heart Rate greater than 90 bpm, Recorded Respiratory Rate greater than 20, Respiratory: Increasing oxygen requirements, WBC count greater than 12,000 or less than 4000, Metabolic: lactate > 2 mmol/L Assessment/Plan - Problem List (1) Sepsis Impression: The fever, elevated lactic acid level have resolved. This morning his blood cultures are growing gram-positive cocci in clusters, therefore bacteremia may be the cause of the sepsis, possibly from a source of his lungs. Continue with IV fluids and antibx, care in the ICU, BiPAP for respiratory support. I spoke to the , Janna by cell phone, at the patient's bedside and updated her on all his diagnoses Qualifiers: Sepsis type: sepsis due to unspecified organism Sepsis acute organ dysfunction status: with acute organ dysfunction Severe sepsis acute organ dysfunction type: acute respiratory failure Acute respiratory failure type: with hypoxia Severe sepsis shock status: without septic shock Qualified Code(s): A41.9 - Sepsis, unspecified organism; R65.20 - Severe sepsis without septic shock; J96.01 - Acute respiratory failure with hypoxia (2) Gram-positive bacteremia Impression: Blood culture have quickly turned positive today, showing GPC and [employer] PCR repoted it is Staph Aureus. It was drawn in the ED yesterday. He was started on empiric Levaquin then. We will add empiric iv Vancomycin in case this is MRSA Will redraw blood cultures to assure they are now negative on his empiric antibiotics. Await identification of this culture result and sensitivities to tailor antibiotics. An Echo has also been ordered to check for endocarditis (3) Acute respiratory failure with hypoxia Impression: He still requires supplemental O2, is tachypneic and desaturates. Continue with supplemental O2 per nasal cannula and using BiPAP when necessary and remain in the ICU. An Echo has also been ordered to assure this is not from cardiac failure (4) Influenza A Impression: He tested positive for influenza A at presentation. He is getting Tamiflu. We are supporting his respiratory sx He did have 1 loose BM today at 0600 today but denied any GI complaints from the 8 days of this viral syndrome at home. Since the diarrhea started after antibiotics, will check for C. difficile, if negative will give as needed Imodium (5) Viral pneumonitis Impression: As above (6) Acute renal insufficiency Impression: His creatinine has improved with IV hydration, the rate was increased from 100 up to 125 cc/h. Avoid nephrotoxins. Follow BMP daily (7) DM type 2 (diabetes mellitus, type 2) Impression: He was able to give more history that diabetes does not run in the family. He caught his diabetes when his "pancreas got shot from taking all his meds for [id number] disease". 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 He stopped doing daily fingerstick checks because the results were "good". A1c ordered. Metformin is currently on hold because of CHRISSY. He is ordered to get a carb controlled diet, fingerstick checks, ss Insulin coverage (8) AML (acute myeloid leukemia) in remission Impression: He was able to give me a detailed history today since he is more awake: He was diagnosed with AML in 2007 and got chemotherapy. It recurred in 2008 and he got chemotherapy then bone marrow transplant. 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 He needed no surgery for that. His AML is now in remission and he knows he has chronic low white count and low platelet count. (9) HTN (hypertension) Impression: As per Hx. Will resume Amlodipine when blood pressure rises and when his medication list is reconciled
[2022-07-13 13:38] LABS: ESTIMATED AVERAGE GLUCOSE 140 mg/dL (70-100); HEMOGLOBIN A1c% 6.5 % (4.27-6.07)
--- NOTE | 2022-07-13 13:39 | PHARMACY PROGRESS NOTE ---
- Therapy Status Basis for treatment: Empirical Treatment indication: Sepsis, possible bacteremia Trough goal: 15-20 Concurrent antibiotics: Levofloxacin 750 mg - CHRISSY Risk Risk level for Acute Kidney Injury: High Acute Kidney Injury risk factors: Wt >100kg or BMI >40, Goal trough >15, Admission to ICU, Sepsis - Monitoring and Recommendation Clinical response to treatment: I&O Previous 24 hours 07/11/22 07/12/22 07/13/22 23:59 23:59 23:59 Intake Total 3550 1400 Output Total 325 250 Balance 3225 1150 Lab Results 07/13/22 07/12/22 04:55 12:35 BUN 48 H 45 H Creatinine 1.3 H 1.8 H Estimated GFR (MDRD) 57 L 39 L Cultures 07/12/22 12:35 Blood - Right Iv-Start Blood Culture - Preliminary NO GROWTH AFTER 1 DAY 07/12/22 13:04 Blood - Right Iv-Start Blood Culture - Preliminary Monitoring plan: Daily serum creatinine, Suggest ongoing fluid replacement Areas for additional monitoring: IV to PO when appropriate, Therapy de- escalation based on culture results Pharmacy recommendation: Continue current regime (Loading dose of 2 gm ordered, followed by 1 gm IV q12h for estimated trough ~15 mcg/mL and AUC/CASSANDRA 400-600 mcg*hr/mL)
[2022-07-13] MEDS ORDERED: VANCOMYCIN INJ 2 GM in SODIUM CHLORIDE 0.9% 500 ML IV ONE (16:00)
[2022-07-13] MEDS ORDERED: SODIUM CHLORIDE 0.9% 500 ML IV ONE (16:28)
[2022-07-13] MEDS: LORazepam 2 MG/ML VIAL IVP PRN (21:03)
[2022-07-14] MEDS: SODIUM CHLORIDE 0.9% 1,000 ML IV SCH ×3 (00:39→21:56)
[2022-07-14] MEDS: LORazepam 2 MG/ML VIAL IVP PRN ×2 (00:39→04:45)
[2022-07-14] MEDS: SODIUM CHLORIDE FLUSH 0.9% 10 ML SYRINGE IVP SCH ×3 (00:40→17:50)
[2022-07-14] MEDS: SODIUM CHLORIDE FLUSH 0.9% 10 ML SYRINGE IVP PRN ×2 (04:45→05:59)
[2022-07-14] MEDS: VANCOMYCIN INJ 1 GM in SODIUM CHLORIDE 0.9% 250 ML IV SCH ×2 (04:45→15:59)
[2022-07-14 05:35] LABS: HCT - HEMATOCRIT 29.6 % (42.0-52.0); HGB - HEMOGLOBIN 9.7 g/dL (14.0-18.0); LYMPHOCYTES % (AUTO) 16.9 %; MEAN CORPUSCULAR HEMOGLOBIN 35.1 pg (27.0-31.0); MEAN CORPUSCULAR HGB CONC 32.8 g/dL (32.0-36.0); MEAN CORPUSCULAR VOLUME 107.2 fL (80.0-94.0); MEAN PLATELET VOLUME 11.8 fL (7.4-11.4); MONOCYTES % (AUTO) 5.9 %; NEUTROPHILS % (AUTO) 75.7 %; PLT - PLATELET COUNT 71 10^3/uL (130-450); RED BLOOD COUNT 2.76 10^6/uL (4.70-6.10); RED CELL DISTRIBUTION WIDTH 15.1 % (12.0-15.0); WHITE BLOOD COUNT 3.9 x10^3/uL (4.8-10.8)
[2022-07-14 05:36] LABS: CALCIUM, IONIZED 1.12 mmol/L (1.15-1.33); VBG PH 7.345 (7.31-7.41)
[2022-07-14 05:42] LABS: ABNORMAL LYMPHS % (MANUAL) 0 %
[2022-07-14 05:46] LABS: CALCIUM 8.1 mg/dL (8.5-10.3); CREATININE 1.1 mg/dL (0.6-1.2); MAGNESIUM 2.3 mg/dL (1.7-2.8); POTASSIUM 3.9 mmol/L (3.5-5.0)
[2022-07-14] MEDS: methylPREDNISolone SUCCINATE 40 MG/ML VIAL IVP SCH ×3 (05:59→21:53)
[2022-07-14 06:00] LABS: BAND NEUTROPHILS % (MANUAL) 5 %; LYMPHOCYTES # (MANUAL) 0.9 10^3/uL (1.5-3.5); LYMPHOCYTES % (MANUAL) 23 %; MONOCYTES # (MANUAL) 0.2 10^3/uL (0.0-1.0); NEUTROPHILS # (MANUAL) 2.8 10^3/uL (1.5-6.6); PLATELET ESTIMATE, MANUAL DECREASED (<130,000) (NORMAL); PLATELET MORPHOLOGY NORMAL APPEARANCE (NORMAL); RBC MORPHOLOGY (MULTIPLE) 1+ MACROCYTOSIS (NORMAL)
[2022-07-14 06:01] LABS: DIFFERENTIAL COMMENT MANUAL DIFFERENTIAL; WBC MORPHOLOGY (MULTIPLE) 1+ TOXIC GRANULATION (NORMAL)
[2022-07-14] MEDS: IPRATROPIUM/ALBUTEROL 3 ML NEB INH SCH ×4 (06:18→19:37)
[2022-07-14] MEDS: BUDESONIDE 0.5 MG/2 ML NEB INH SCH ×2 (06:18→19:37)
[2022-07-14] MEDS: SACCHAROMYCES BOULARDII 250 MG CAPSULE PO SCH ×2 (08:26→17:50)
[2022-07-14] MEDS: guaiFENesin 600 MG TABLET PO SCH ×2 (08:26→20:57)
[2022-07-14] MEDS: INSULIN LISPRO 300 UNIT/3 ML PEN SUBQ SCH ×4 (08:26→20:57)
[2022-07-14] MEDS: POTASSIUM CHLORIDE 20 MEQ TABLET PO ONE ×2 (08:26→08:27)
[2022-07-14] MEDS: OSELTAMIVIR 75 MG CAPSULE PO SCH ×2 (08:27→20:56)
--- NOTE | 2022-07-14 09:25 | PROVIDER PROGRESS NOTE ---
Subjective - Subjective Subjective: Falling asleep, sitting in chair, after getting Ativan this morning in the ICU for claustrophobia when on BIPAP. Objective - Vital Signs/Intake & Output Reviewed Vital Signs: Yes Vital Signs: Vital Signs Temp Pulse Pulse Resp BP Pulse Ox O2 Flow Rate 07/14/22 09:00 100 37 H 99/66 96 3 07/14/22 08:24 36.6 C 07/14/22 08:00 106 H 40 H 107/58 L 94 3 07/14/22 07:00 104 H 40 H 98/77 94 3 07/14/22 06:56 3 07/14/22 06:20 97 33 H 3 07/14/22 06:00 100 43 H 103/70 87 L 3 07/14/22 05:50 3 Intake & Output: Intake & Output 07/11/22 07/12/22 07/13/22 07/14/22 23:59 23:59 23:59 23:59 Intake Total 3550 3420 1000 Output Total 325 250 0 Balance 3225 3170 1000 - Objective General Appearance: positive: Lethargic (Falls asleep at midsentence, sitting upright) Eyes Bilateral: positive: Normal inspection, No lid inflammation ENT: positive: ENT inspection nml, No signs of dehydration, Other (Is wearing O2 per nasal cannula) Neck: positive: Nml inspection, No JVD Respiratory: positive: Other (Poor air movement, very shallow breaths, at resp rate 40, but no wheezing or rales) Cardiovascular: positive: Regular rate & rhythm, No murmur Rectal: positive: Non-tender Skin: positive: Warm, Dry Extremities: positive: Non-tender, No pedal edema Neurologic/Psychiatric: positive: Other (Lethargic. Falls asleep in midsentence) - Lab Results Fish Bones: 07/14/22 05:24 07/14/22 05:24 Other Labs: Lab Results x24hrs 07/14/22 07/14/22 07/14/22 Range/Units 05:24 05:24 05:24 WBC 3.9 L (4.8-10.8) x10^3/uL RBC 2.76 L (4.70-6.10) 10^6/uL Hgb 9.7 L (14.0-18.0) g/dL Hct 29.6 L (42.0-52.0) % MCV 107.2 H (80.0-94.0) fL MCH 35.1 H (27.0-31.0) pg MCHC 32.8 (32.0-36.0) g/dL RDW 15.1 H (12.0-15.0) % Plt Count 71 L (130-450) 10^3/uL MPV 11.8 H (7.4-11.4) fL Neut # (Auto) Not Reportable Lymph # (Auto) Not Reportable Meagher # (Auto) Not Reportable Eos # (Auto) Not Reportable Baso # (Auto) Not Reportable Absolute Nucleated RBC Not Reportable Total Counted 100 Band Neuts % (Manual) 5 (0 - 10) % Abnorm Lymph % (Manual) 0 % Nucleated RBC % Not Reportable Neutrophils # (Manual) 2.8 (1.5-6.6) 10^3/uL Lymphocytes # (Manual) 0.9 L (1.5-3.5) 10^3/uL Monocytes # (Manual) 0.2 (0.0-1.0) 10^3/uL Eosinophils # (Manual) 0.0 (0-0.7) 10^3/uL Basophils # (Manual) 0.0 (0-0.1) 10^3/uL Differential Comment MANUAL DIFFERENTIAL WBC Morphology 1+ TOXIC GRANULATION (NORMAL) Platelet Estimate DECREASED (<130,000) (NORMAL) Platelet Morphology NORMAL APPEARANCE (NORMAL) RBC Morph Micro Appear 1+ MACROCYTOSIS (NORMAL) VBG pH 7.345 (7.31-7.41) Ionized Calcium 1.12 L (1.15-1.33) mmol/L Sodium 137 (135-145) mmol/L Potassium 3.9 (3.5-5.0) mmol/L Chloride 105 (101-111) mmol/L Carbon Dioxide 20 L (21-32) mmol/L Anion Gap 12.0 (6-13) BUN 50 H (6-20) mg/dL Creatinine 1.1 (0.6-1.2) mg/dL Estimated GFR (MDRD) 69 L (>89) Glucose 213 H (70-100) mg/dL Estimat Average Glucose (70-100) mg/dL Hemoglobin A1c % (4.27-6.07) % Calcium 8.1 L (8.5-10.3) mg/dL Phosphorus 3.0 (2.5-4.6) mg/dL Magnesium 2.3 (1.7-2.8) mg/dL Stl C. diff Tox B Gene (NEGATIVE) 07/13/22 07/13/22 Range/Units 16:10 04:55 WBC (4.8-10.8) x10^3/uL RBC (4.70-6.10) 10^6/uL Hgb (14.0-18.0) g/dL Hct (42.0-52.0) % MCV (80.0-94.0) fL MCH (27.0-31.0) pg MCHC (32.0-36.0) g/dL RDW (12.0-15.0) % Plt Count (130-450) 10^3/uL MPV (7.4-11.4) fL Neut # (Auto) Lymph # (Auto) Meagher # (Auto) Eos # (Auto) Baso # (Auto) Absolute Nucleated RBC Total Counted Band Neuts % (Manual) (0 - 10) % Abnorm Lymph % (Manual) % Nucleated RBC % Neutrophils # (Manual) (1.5-6.6) 10^3/uL Lymphocytes # (Manual) (1.5-3.5) 10^3/uL Monocytes # (Manual) (0.0-1.0) 10^3/uL Eosinophils # (Manual) (0-0.7) 10^3/uL Basophils # (Manual) (0-0.1) 10^3/uL Differential Comment WBC Morphology (NORMAL) Platelet Estimate (NORMAL) Platelet Morphology (NORMAL) RBC Morph Micro Appear (NORMAL) VBG pH (7.31-7.41) Ionized Calcium (1.15-1.33) mmol/L Sodium (135-145) mmol/L Potassium (3.5-5.0) mmol/L Chloride (101-111) mmol/L Carbon Dioxide (21-32) mmol/L Anion Gap (6-13) BUN (6-20) mg/dL Creatinine (0.6-1.2) mg/dL Estimated GFR (MDRD) (>89) Glucose (70-100) mg/dL Estimat Average Glucose 140 H (70-100) mg/dL Hemoglobin A1c % 6.5 H (4.27-6.07) % Calcium (8.5-10.3) mg/dL Phosphorus (2.5-4.6) mg/dL Magnesium (1.7-2.8) mg/dL Stl C. diff Tox B Gene NEGATIVE (NEGATIVE) Sepsis Event Note (H) - Evaluation Current Stage of Sepsis: Resolved Possible source of Sepsis: positive: Pulmonary - Sepsis Criteria Sepsis Criteria: Recorded Temperature greater than 38.3C or Less than 36C, Recorded Heart Rate greater than 90 bpm, Recorded Respiratory Rate greater than 20, Respiratory: Increasing oxygen requirements, WBC count greater than 12,000 or less than 4000, Metabolic: lactate > 2 mmol/L Assessment/Plan - Problem List (1) Acute respiratory failure with hypoxia Impression: His chest x-ray was read as having interstitial changes. We are presuming this is an atypical or viral pneumonia. He still requires supplemental O2, is very tachypneic, with shallow breaths and desaturates. Continue with supplemental O2 per nasal cannula and if needed cont using BiPAP, but will cancel prn Ativan for "claustrophobia" because he is too somnolent for a prolonged time from this. If transferring out of ICU, he may need HiFlow or ventimask. An Echo has also been ordered to assure these CXR findings are not from cardiac failure Continue with nebulizers, steroids and empiric antibiotics. Will order incentive spirometery and Mucinex (2) Influenza A Impression: He tested positive for influenza A at presentation. Infectious isolation was ordered He is getting Tamiflu. We are supporting his respiratory sx He did have 1 loose BM at admission but denied any GI complaints from the 8 days of this viral syndrome at home. Since the diarrhea started after antibiotics, we ordered check for C. difficile, if negative and if it recurs, will give as needed Imodium. Will order incentive spirometery and Mucinex (3) Viral pneumonitis Impression: As above (4) Staph aureus bacteremia Impression: Blood culture have quickly turned positive. BioFire PCR reported it is Staph Aureus. It was drawn in the ED. He was started on empiric Levaquin only at admission. We added empiric iv Vancomycin yesterday in case this is MRSA We have redrawn blood cultures to assure they are now negative on his empiric antibiotics. Await identification of this culture result and sensitivities to tailor antibiotics. An Echo has also been ordered to check for endocarditis (5) Acute renal insufficiency Impression: This was likely formed poor p.o. intake and from fevers, that he suffered with for 8 days before coming to the ER. His creatinine has improved somewhat with IV hydration. He is still very pre-renal, thus we will continue iv hydration. Follow BMP daily (6) DM type 2 (diabetes mellitus, type 2) Impression: He was able to give more history that diabetes does not run in the family. 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 He stopped doing daily fingerstick checks at home because the results were "good". A1c came back at 6.5 indicating good control on just Metformin at home Metformin is currently on hold because of CHRISSY. He is ordered to get a carb controlled diet, fingerstick checks, ss Insulin coverage. Being on Decadron, his glucoses here are all testing over 200. We will add Carlos (7) Hx of AML (acute myeloid leukemia) in remission Impression: He was able to give me a detailed history. He was diagnosed with AML in 2007 and got chemotherapy. It recurred in 2008 and he got chemotherapy then bone marrow transplant. 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 He needed no surgery for that. His AML is now in remission and he knows he runs a chronic low white count and low platelet count. (8) HTN (hypertension) Impression: As per Hx. Will resume Amlodipine when blood pressure rises (9) Sepsis Impression: Resolved The fever, elevated lactic acid level, and tachycardia have resolved. He has a chronic low WBC. The source was bacteremia plus influenza pneumonitis
[2022-07-14 09:34] LABS: ABG PCO2 33 mmHg (34-45); ABG PO2 94 mmHg (80-100)
[2022-07-14 09:35] LABS: ABG BASE EXCESS -4.2 mmol/L (-2.0-3.0); ABG HCO3 19.8 mmol/L (22.0-26.0); ABG OXYGEN SATURATION 97 % (94-98); ABG TCO2 20.8 MMOL/L (21.0-29.0); ALLEN TEST POSITIVE
[2022-07-14] MEDS: levoFLOXacin 750 MG/150 ML 750 MG/150 ML BAG IV SCH (11:28)
[2022-07-14] MEDS: MULTIVITAMIN W/MINERALS TABLET PO SCH (11:28)
--- NOTE | 2022-07-14 11:29 | PROVIDER PROGRESS NOTE ---
Objective - Vital Signs/Intake & Output Vital Signs: Vital Signs Temp Pulse Resp BP Pulse Ox O2 Flow Rate 07/14/22 10:25 3 07/14/22 10:00 94 29 H 98/66 97 3 07/14/22 09:00 100 37 H 99/66 96 3 07/14/22 08:24 36.6 C 07/14/22 08:00 106 H 40 H 107/58 L 94 3 Intake & Output: Intake & Output 07/11/22 07/12/22 07/13/22 07/14/22 23:59 23:59 23:59 23:59 Intake Total 3550 3420 2400 Output Total 325 250 0 Balance 3225 3170 2400 - Lab Results Fish Bones: 07/14/22 05:24 07/14/22 05:24 Other Labs: Lab Results x24hrs 07/14/22 07/14/22 07/14/22 Range/Units 09:28 05:24 05:24 WBC (4.8-10.8) x10^3/uL RBC (4.70-6.10) 10^6/uL Hgb (14.0-18.0) g/dL Hct (42.0-52.0) % MCV (80.0-94.0) fL MCH (27.0-31.0) pg MCHC (32.0-36.0) g/dL RDW (12.0-15.0) % Plt Count (130-450) 10^3/uL MPV (7.4-11.4) fL Neut # (Auto) Lymph # (Auto) Franklin # (Auto) Eos # (Auto) Baso # (Auto) Absolute Nucleated RBC Total Counted Band Neuts % (Manual) (0 - 10) % Abnorm Lymph % (Manual) % Nucleated RBC % Neutrophils # (Manual) (1.5-6.6) 10^3/uL Lymphocytes # (Manual) (1.5-3.5) 10^3/uL Monocytes # (Manual) (0.0-1.0) 10^3/uL Eosinophils # (Manual) (0-0.7) 10^3/uL Basophils # (Manual) (0-0.1) 10^3/uL Differential Comment WBC Morphology (NORMAL) Platelet Estimate (NORMAL) Platelet Morphology (NORMAL) RBC Morph Micro Appear (NORMAL) Bld Gas Analysis Time 0912 Sample Site LEFT RADIAL ABG pH 7.40 (7.35-7.45) ABG pCO2 33 L (34-45) mmHg ABG pO2 94 (80-100) mmHg ABG HCO3 19.8 L (22.0-26.0) mmol/L ABG Total CO2 20.8 L (21.0-29.0) MMOL/L ABG O2 Saturation 97 (94-98) % ABG Base Excess -4.2 L (-2.0-3.0) mmol/L Mikael Test POSITIVE VBG pH 7.345 (7.31-7.41) Ionized Calcium 1.12 L (1.15-1.33) mmol/L O2 Delivery Device NASAL CANNULA FiO2 32.00 Sodium 137 (135-145) mmol/L Potassium 3.9 (3.5-5.0) mmol/L Chloride 105 (101-111) mmol/L Carbon Dioxide 20 L (21-32) mmol/L Anion Gap 12.0 (6-13) BUN 50 H (6-20) mg/dL Creatinine 1.1 (0.6-1.2) mg/dL Estimated GFR (MDRD) 69 L (>89) Glucose 213 H (70-100) mg/dL Estimat Average Glucose (70-100) mg/dL Hemoglobin A1c % (4.27-6.07) % Calcium 8.1 L (8.5-10.3) mg/dL Phosphorus 3.0 (2.5-4.6) mg/dL Magnesium 2.3 (1.7-2.8) mg/dL Stl C. diff Tox B Gene (NEGATIVE) 07/14/22 07/13/22 07/13/22 Range/Units 05:24 16:10 04:55 WBC 3.9 L (4.8-10.8) x10^3/uL RBC 2.76 L (4.70-6.10) 10^6/uL Hgb 9.7 L (14.0-18.0) g/dL Hct 29.6 L (42.0-52.0) % MCV 107.2 H (80.0-94.0) fL MCH 35.1 H (27.0-31.0) pg MCHC 32.8 (32.0-36.0) g/dL RDW 15.1 H (12.0-15.0) % Plt Count 71 L (130-450) 10^3/uL MPV 11.8 H (7.4-11.4) fL Neut # (Auto) Not Reportable Lymph # (Auto) Not Reportable Franklin # (Auto) Not Reportable Eos # (Auto) Not Reportable Baso # (Auto) Not Reportable Absolute Nucleated RBC Not Reportable Total Counted 100 Band Neuts % (Manual) 5 (0 - 10) % Abnorm Lymph % (Manual) 0 % Nucleated RBC % Not Reportable Neutrophils # (Manual) 2.8 (1.5-6.6) 10^3/uL Lymphocytes # (Manual) 0.9 L (1.5-3.5) 10^3/uL Monocytes # (Manual) 0.2 (0.0-1.0) 10^3/uL Eosinophils # (Manual) 0.0 (0-0.7) 10^3/uL Basophils # (Manual) 0.0 (0-0.1) 10^3/uL Differential Comment MANUAL DIFFERENTIAL WBC Morphology 1+ TOXIC GRANULATION (NORMAL) Platelet Estimate DECREASED (<130,000) (NORMAL) Platelet Morphology NORMAL APPEARANCE (NORMAL) RBC Morph Micro Appear 1+ MACROCYTOSIS (NORMAL) Bld Gas Analysis Time Sample Site ABG pH (7.35-7.45) ABG pCO2 (34-45) mmHg ABG pO2 (80-100) mmHg ABG HCO3 (22.0-26.0) mmol/L ABG Total CO2 (21.0-29.0) MMOL/L ABG O2 Saturation (94-98) % ABG Base Excess (-2.0-3.0) mmol/L Mikael Test VBG pH (7.31-7.41) Ionized Calcium (1.15-1.33) mmol/L O2 Delivery Device FiO2 Sodium (135-145) mmol/L Potassium (3.5-5.0) mmol/L Chloride (101-111) mmol/L Carbon Dioxide (21-32) mmol/L Anion Gap (6-13) BUN (6-20) mg/dL Creatinine (0.6-1.2) mg/dL Estimated GFR (MDRD) (>89) Glucose (70-100) mg/dL Estimat Average Glucose 140 H (70-100) mg/dL Hemoglobin A1c % 6.5 H (4.27-6.07) % Calcium (8.5-10.3) mg/dL Phosphorus (2.5-4.6) mg/dL Magnesium (1.7-2.8) mg/dL Stl C. diff Tox B Gene NEGATIVE (NEGATIVE) Sepsis Event Note (H) - Evaluation Current Stage of Sepsis: Resolved Possible source of Sepsis: positive: Pulmonary - Sepsis Criteria Sepsis Criteria: Recorded Temperature greater than 38.3C or Less than 36C, Recorded Heart Rate greater than 90 bpm, Recorded Respiratory Rate greater than 20, Respiratory: Increasing oxygen requirements, WBC count greater than 12,000 or less than 4000, Metabolic: lactate > 2 mmol/L Assessment/Plan - Problem List (1) Sepsis Impression: The fever, elevated lactic acid level have resolved. This morning his blood cultures are growing gram-positive cocci in clusters, therefore bacteremia may be the cause of the sepsis, possibly from a source of his lungs. Continue with IV fluids and antibx, care in the ICU, BiPAP for respiratory support. I spoke to the , Janna by cell phone, at the patient's bedside and updated her on all his diagnoses Qualifiers: Sepsis type: sepsis due to unspecified organism Sepsis acute organ dysfunction status: with acute organ dysfunction Severe sepsis acute organ dysfunction type: acute respiratory failure Acute respiratory failure type: with hypoxia Severe sepsis shock status: without septic shock Qualified Code(s): A41.9 - Sepsis, unspecified organism; R65.20 - Severe sepsis without septic shock; J96.01 - Acute respiratory failure with hypoxia (2) Gram-positive bacteremia Impression: Blood culture have quickly turned positive today, showing GPC and BioFire PCR repoted it is Staph Aureus. It was drawn in the ED yesterday. He was started on empiric Levaquin then. We will add empiric iv Vancomycin in case this is MRSA Will redraw blood cultures to assure they are now negative on his empiric antibiotics. Await identification of this culture result and sensitivities to tailor antibiotics. An Echo has also been ordered to check for endocarditis (3) Acute respiratory failure with hypoxia Impression: He still requires supplemental O2, is tachypneic, hypopneic and desaturates. Continue with supplemental O2 per nasal cannula and using BiPAP when necessary and remain in the ICU. Ordering IS as well Will stop Ativan, as it is oversedating him An Echo has also been ordered to assure this is not from cardiac failure (4) Influenza A Impression: He tested positive for influenza A at presentation. He is getting Tamiflu. We are supporting his respiratory sx He did have 1 loose BM today at 0600 today but denied any GI complaints from the 8 days of this viral syndrome at home. Since the diarrhea started after antibiotics, will check for C. difficile, if negative will give as needed Imodium (5) Viral pneumonitis Impression: As above (6) Acute renal insufficiency Impression: His creatinine has improved with IV hydration, the rate was increased from 100 up to 125 cc/h. Avoid nephrotoxins. Follow BMP daily (7) DM type 2 (diabetes mellitus, type 2) Impression: He was able to give more history that diabetes does not run in the family. He caught his diabetes when his "pancreas got shot from taking all his meds for edtjs-biivub-oviu disease". 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 He stopped doing daily fingerstick checks because the results were "good". A1c ordered. Metformin is currently on hold because of CHRISSY. He is ordered to get a carb controlled diet, fingerstick checks, ss Insulin coverage (8) AML (acute myeloid leukemia) in remission Impression: He was able to give me a detailed history today since he is more awake: He was diagnosed with AML in 2007 and got chemotherapy. It recurred in 2008 and he got chemotherapy then bone marrow transplant. He was then on medications for qqacm-yhjbzk-uleh disease which "ruined" his pancreas. 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 He needed no surgery for that. His AML is now in remission and he knows he has chronic low white count and low platelet count. (9) HTN (hypertension) Impression: As per Hx. Will resume Amlodipine when blood pressure rises and when his medication list is reconciled Qualifiers: Sepsis type: sepsis due to unspecified organism Sepsis acute organ dysfunction status: with acute organ dysfunction Severe sepsis acute organ dysfunction type: acute respiratory failure Acute respiratory failure type: with hypoxia Severe sepsis shock status: without septic shock Qualified Code(s): A41.9 - Sepsis, unspecified organism; R65.20 - Severe sepsis without septic shock; J96.01 - Acute respiratory failure with hypoxia
[2022-07-14] MEDS: INSULIN GLARGINE-YFGN 300 UNIT/3 ML PEN SUBQ SCH ×2 (12:04→20:58)
[2022-07-14] MEDS: ACETAMINOPHEN 325 MG TABLET PO PRN ×2 (12:08→20:55)
[2022-07-14] MEDS ORDERED: guaiFENesin/CODEINE 5 ML UDC PO PRN (19:23)
[2022-07-15] MEDS: SODIUM CHLORIDE FLUSH 0.9% 10 ML SYRINGE IVP SCH ×2 (01:51→10:36)
[2022-07-15] MEDS: VANCOMYCIN INJ 1 GM in SODIUM CHLORIDE 0.9% 250 ML IV SCH (03:43)
[2022-07-15 05:19] LABS: CALCIUM, IONIZED 1.12 mmol/L (1.15-1.33); VBG PH 7.397 (7.31-7.41)
[2022-07-15 05:21] LABS: HCT - HEMATOCRIT 28.4 % (42.0-52.0); HGB - HEMOGLOBIN 9.1 g/dL (14.0-18.0); LYMPHOCYTES % (AUTO) 14.4 %; MEAN CORPUSCULAR HEMOGLOBIN 34.7 pg (27.0-31.0); MEAN CORPUSCULAR VOLUME 108.4 fL (80.0-94.0); MEAN PLATELET VOLUME 11.8 fL (7.4-11.4); MONOCYTES % (AUTO) 3.8 %; NEUTROPHILS % (AUTO) 79.5 %; PLT - PLATELET COUNT 84 10^3/uL (130-450); RED BLOOD COUNT 2.62 10^6/uL (4.70-6.10); RED CELL DISTRIBUTION WIDTH 15.2 % (12.0-15.0); WHITE BLOOD COUNT 4.8 x10^3/uL (4.8-10.8)
[2022-07-15 05:23] LABS: ABNORMAL LYMPHS % (MANUAL) 0 %
[2022-07-15 05:35] LABS: CALCIUM 8.2 mg/dL (8.5-10.3); CREATININE 0.9 mg/dL (0.6-1.2); MAGNESIUM 2.3 mg/dL (1.7-2.8); PHOSPHORUS 2.9 mg/dL (2.5-4.6); POTASSIUM 4.2 mmol/L (3.5-5.0)
[2022-07-15 05:47] LABS: BAND NEUTROPHILS % (MANUAL) 2 %; LYMPHOCYTES # (MANUAL) 0.6 10^3/uL (1.5-3.5); LYMPHOCYTES % (MANUAL) 12 %; MONOCYTES # (MANUAL) 0.1 10^3/uL (0.0-1.0); NEUTROPHILS # (MANUAL) 4.1 10^3/uL (1.5-6.6)
[2022-07-15 05:48] LABS: DIFFERENTIAL COMMENT MANUAL DIFFERENTIAL; PLATELET ESTIMATE, MANUAL DECREASED (<130,000) (NORMAL); PLATELET MORPHOLOGY NORMAL APPEARANCE (NORMAL); WBC MORPHOLOGY (MULTIPLE) NORMAL APPEARANCE (NORMAL)
[2022-07-15] MEDS: methylPREDNISolone SUCCINATE 40 MG/ML VIAL IVP SCH (06:04)
[2022-07-15] MEDS: INSULIN GLARGINE-YFGN 300 UNIT/3 ML PEN SUBQ SCH (07:56)
[2022-07-15] MEDS: INSULIN LISPRO 300 UNIT/3 ML PEN SUBQ SCH ×2 (07:56→11:46)
[2022-07-15] MEDS: SODIUM CHLORIDE 0.9% 1,000 ML IV SCH (07:57)
[2022-07-15] MEDS: guaiFENesin 600 MG TABLET PO SCH (07:58)
[2022-07-15] MEDS: OSELTAMIVIR 75 MG CAPSULE PO SCH (07:58)
[2022-07-15] MEDS: MULTIVITAMIN W/MINERALS TABLET PO SCH (07:58)
[2022-07-15] MEDS: SACCHAROMYCES BOULARDII 250 MG CAPSULE PO SCH (07:58)
[2022-07-15] MEDS: IPRATROPIUM/ALBUTEROL 3 ML NEB INH SCH ×2 (08:11→12:15)
--- NOTE | 2022-07-15 10:57 | ADVANCE CARE PLANNING NOTE ---
Advance Care Planning - Planning Encounter Date: 07/15/22 Time: 10:54 Purpose: Establish care goals in the face of leaving AMA Parties in Attendance: Hospitalist and patient Decisional Capacity of the Patient: Alert, oriented, and states that he does not have anyone invoking DPOA or POA and he makes his own decisions - Diagnosis for Encounter (1) Acute respiratory failure with hypoxia Summary: Due to influenza. He is not on home oxygen. On admission he needed 3 L nasal cannula and has been on 3 L nasal cannula since July 13. Starting this morning, with shaving and dressing and bathroom he dropped his O2 sats to 60% on 3 L nasal cannula and needed 10 L with oxime mask. He is now on 4 L Oxymizer. - Encounter Subjective/Patient's Story: He states that he has been hospitalized at least 14 times over the last 14 years. These are all due to AML, recurrence of AML with missed diagnosis over 12 months, and then finally bone marrow biopsy with his second bout of AML. He is also had traumatic brain injury, and spine injury requiring surgeries. He feels that he is an accurate gauge of his own health and is on stability. While he has a healthy respect for the medical profession, there are "bench warmers" and then there are "all stars". He is very unhappy with all the previous years of missed diagnosis, mistreatment and all the "bench warmers" that were taken care of him. Without in mind, he understands that he has influenza is requiring quite a bit of oxygen because of viral pneumonia. He is of the opinion he does not need to be in the hospital for supportive care and would just like to go home. He states that his and daughter live with him. They are aware of his philosophical boundaries and will support him in his decision. Objective/Medical Story: Mr. Eldridge is a 57-year-old male who has a history of diabetes, hypertension, AML in remission (but has chronic neutropenia and thrombocytopenia, the presents with 8 days of upper respiratory congestion and worsening shortness of breath. His oxygen saturations in the ER were 88% on room air, respiratory rate was 40, he was febrile, and had sinus tachycardia to 140. Elevated lactic acid level. His laboratory analysis shows influenza A, and viral pneumonia on chest x-ray. He was admitted to the ICU and required BiPAP. He is very claustrophobic but Ativan helps but unfortunately slows him down. After 2 days he did not want to be in the ICU anymore and he was transferred to the floor. He is still very congested, coughing, very weakened and deconditioned. Requiring 3 L nasal cannula. This morning requiring 10 L oxygen mask and then 4 L Oxymizer. I have explained to him that he should do well with this illness. He will recover. Unfortunately he still requiring quite a bit of oxygen. 60% oxygen saturation is not compatible with normal life if he goes on for too long. He would be at risk of a stroke or a heart attack or some type of endorgan damage from hypoxemia. In spite of that he states he still would like to go home. Goals of Care: 1. He would like to recover at home 2. He would like to remain a full code. His chances of survivability or deficits at survivability were described to him and he still would like to be a full code. Plan: Discharged home AGAINST MEDICAL ADVICE Code Status: Attempt Resuscitation Time spent on advance care plannin minutes
[2022-07-15 11:05] VITALS: BP 127/73
--- NOTE | 2022-07-15 11:44 | Discharge Plan ---
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 In the emergency room your respiratory rate was 40, you had a fever, fast heart rate 240, and lactic acidosis. Your lactic acidosis can be either to severe infection or to the fact that you are taking metformin for diabetes. You were very ill, breathing fast, and were 88% on room air with regards to oxygen levels in your body. Normal is 100% on room air. Your x-ray shows viral pneumonia and you are positive for influenza A on your nasal swab.In addition to this, your blood grew out staph aureus. So somewhere staph was introduced into your bloodstream from your viral pneumonia. You were in the intensive care unit on a noninvasive ventilator to help you breathe. You now no longer need the noninvasive ventilator but you are requiring a tremendous amount of oxygen. When you get up and walk to the bathroom, even while on oxygen, you dropped your O2 sats to approximately 68% to 70%. Plan of Treatment: 1. You wish to leave AGAINST MEDICAL ADVICE. You feel that you are a very educated patient with regards to your body. You have been through a lot in the last 14 years. I disagree with you going home in that your body needs quite a bit of oxygen at this time that cannot be delivered safely at home. You disagree and would still like to go home. You states that your and daughter live at home with you and they would be supportive of your decision. 2. Please do not take metformin while you are acutely ill. Metformin by itself can be lethal if taken in the face of severe illness. You can resume metformin when you are eating and drinking normally and no longer need oxygen. 3. Please see your primary care provider in follow-up in the next week. 4. You have been in the hospital for 3 days. We are adding 2 more days of Tamiflu to help treat and reduce the effects of influenza A. You have been given a prescription for that and you could fill it at whichever pharmacy you desire. I would also like you to take 7 more days of Levaquin to complete antibiotic therapy for the staff aureus that grew in your blood. This can sometimes be a symptom of a more dangerous disease such as heart valve infection. If you continue to have fevers, shortness of breath, please tell the emergency room staff of the hospital that you may need an echocardiogram to look for heart valve infection. Care Goals: To recover from influenza at home Assessment: Patient is alert, oriented, lucid historian, and does not appear to be delirious, demented, or suicidal. He wishes to be a full code if he does collapse at home No Smoking: If you smoke, Please STOP! Call for help. Follow-up with: AAMIR LUGO MD [Physician No Access] -
--- NOTE | 2022-07-15 11:55 | DISCHARGE SUMMARY ---
Discharge Summary Admit Date: 07/12/22 Discharge Date: 07/15/22 Discharging Provider: Carmela Hightower MD Primary Care Provider: Dennise Franklin MD Code Status: Attempt Resuscitation Condition at Discharge: Poor Discharge Disposition: Against Medical Advice - DIAGNOSES Discharge Diagnoses with Status of Each Condition: 1. sepsis 2. Acute respiratory failure with hypoxia 3. Viral pneumonitis 4. Influenza A 5. Staff aureus bacteremia 6. Acute renal insufficiency 7. Type 2 diabetes mellitus, controlled, without complications, not on long-term insulin 8. History of AML in remission 9. Chronic pancytopenia 10. Hypertension 11. Lactic acidosis - HPI History of Present Illness: This is a 57-year-old white male with history of AML (with chronic neutropenia and thrombocytopenia), hypertension on Amlodipine, diabetes on Metformin and depression on Wellbutrin. He has had upper respiratory congestion and nasal congestion for over a week. He became more short of breath today and went to a walk-in clinic. There he was found to have O2 saturation of 88% on room air and was brought to the emergency room. He was in moderate-severe respiratory distress on presentation, with respiratory rate 40, speaking in 1-word answers, tachycardic at 130 in sinus rhythm, had wheezing and poor air movement (and he has no cardiac or pulmonary past Hx). He was given a nebulizer treatment and started on supplemental oxygen. There has been slight improvement, with heart rate down to 130 and respiratory rate down to 30. Other work-up shows he has a fever of 39.4, an elevated Lactic Acid level of 3.5, his white count is 3.8, he is influenza positive, and chest x-ray shows interstitial pneumonitis. The patient is being admitted to the ICU on the Hospitalist service for treating acute respiratory failure with hypoxia, viral (influenza A) pneumonitis, causing sepsis. 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 He works full-time. At the recommendation of respiratory therapy, BiPAP was ordered and instituted, because he was still w orking hard to breathe. As I entered the room he had just been put on BiPAP, and felt more comfortable, so that he fell asleep, from exhaustion, per RN and RT. There was no information to his RN yet about family history or who lives at home with him. He did not give me any answers to questions as he did not awaken to name. Therefore, by default he will be a Full Code. - Past Medical History Cardiovascular: reports: Hypertension Respiratory: reports: None Neuro: reports: None Endocrine/Autoimmune: reports: Type 2 diabetes GI: reports: Cirrhosis : reports: None HEENT: reports: Other Psych: reports: Depression Musculoskeletal: reports: None Derm: reports: None MRSA Hx?: Yes Other Past Medical History: AML and has chronic low WBC and low plt count - CONSULTS | PROCEDURES Procedures: Blood cultures July 12 with staff aureus Blood cultures July 13 with staff aureus Chest x-ray July 12 with interstitial thickening suggestive of interstitial pneumonia, superimposed on bronchitis. It was felt to have the appearance of viral pneumonia. - HOSPITAL COURSE Hospital Course: The patient was started on Tamiflu, and required BiPAP because of severe hypoxemia with acute respiratory failure. He was claustrophobic with the BiPAP and given Ativan but he would get too somnolent and as such Ativan cut back. He has blood cultures quickly became positive for staph aureus. He was started e mpirically on Levaquin. Vancomycin was added in case this was MRSA. When sensitivities came back vancomycin was discontinued and Levaquin was continued. CHRISSY resolved with hydration. His diabetes came back with an A1c of 6.5% with metformin at home. Metformin was not continued while in the hospital and he was kept on sliding scale insulin. Amlodipine was resumed and his blood pressure was stable enough. With all this treatment his criteria for sepsis resolved. I met the patient on my first day of service July 15. He was not in a good mood in the morning. [place] like he was not getting good rest. Stated that he knew his body" and felt like he did not need to be here. By afternoon he stated he was leaving AMA. I explained to him that he was still having occasional episodes of significant hypoxemia and I would not recommended. He was seen by respiratory therapy at discharge who did a desat test and felt that the patient could go without oxygen. I did send prescriptions for Levaquin for the MSSA bacteremia of unclear source. I also gave him 2 more days of Tamiflu. I also asked the patient if his family was aware he was leaving AMA and he assured me that they knew. He told me that they supported him in this decision. Advance care planning conversation was held with this patient. Please see under separate dictation At discharge patient was alert, oriented, with a congested nasal tone of voice. Coughing and able to bring up clear phlegm. He had mild tachypnea with getting up to walk to the bathroom and sitting back down in bed. Temperature was 36.4. Heart rate was 101. Blood pressure 151/89. 18 respiratory rate. At room air at rest his O2 sat was 94% with a heart rate of 92. Room air with ambulation showed him to have an O2 sat of 92% with a heart rate of 100. With ambulation on 1 L his O2 sat was 94% and heart rate was 103. He was not sent home with the 1 L. He has diffuse crackles, occasional rhonchi that disappear when he gives a deep cough. Fatigued appearing. Regular rate and rhythm. Abdomen is soft, normal bowel sounds. Extremities are without edema. - ALLERGIES Allergies/Adverse Reactions: Allergies Allergy/AdvReac Type Severity Reaction Status Date / Time Penicillins Allergy Rash Verified 07/15/22 22:14 - MEDICATIONS Home Medications: Ambulatory Orders Medication Instructions Recorded Confirmed Amlodipine Besylate [Norvasc] 10 mg PO DAILY 07/12/22 07/15/22 Levothyroxine Sodium [Synthroid] 50 mcg PO QDAC 07/12/22 07/15/22 Losartan Potassium [Cozaar] 100 mg PO DAILY 07/12/22 07/15/22 Omeprazole Magnesium 40 mg PO DAILY 07/12/22 07/15/22 buPROPion [Wellbutrin Sr] 300 mg PO DAILY 07/12/22 07/15/22 hydroCHLOROthiazide [Hydrodiuril] 25 mg PO DAILY 07/12/22 07/15/22 Acetaminophen [Tylenol] 650 mg PO Q4HR PRN tab 07/15/22 07/15/22 Oseltamivir [Tamiflu] 75 mg PO BID #4 cap 07/15/22 07/15/22 guaiFENesin [Mucinex] 600 mg PO BID tab 07/15/22 07/15/22 levoFLOXacin [Levaquin] 750 mg PO QD #21 tablet 07/15/22 07/15/22 - LABS Result Diagrams: 07/15/22 05:04 07/15/22 05:04 - SEPSIS Current Stage of Sepsis: Resolved Possible source of Sepsis: Pulmonary Sepsis Criteria: Recorded Temperature greater than 38.3C or Less than 36C, Recorded Heart Rate greater than 90 bpm, Recorded Respiratory Rate greater than 20, Respiratory: Increasing oxygen requirements, WBC count greater than 12,000 or less than 4000, Metabolic: lactate > 2 mmol/L
== END 2022-07-15 13:10 | disposition left against medical advice (07) | DRG 871 ==
LOC: EDUNIT# → ED 12:12 → MS2 13:53 → ICU 14:45 → MS2 07-14 11:28
PROVIDERS: ADMIT Internal Medicine; ATTEND Specialist
DX: A41.01 Sepsis due to Methicillin susceptible Staphylococcus aureus (principal); J10.08 Influenza due to other identified influenza virus with other specified pneumonia; J96.01 Acute respiratory failure with hypoxia; N17.9 Acute kidney failure, unspecified; C92.01 Acute myeloblastic leukemia, in remission; D61.818 Other pancytopenia; E87.20 Acidosis, unspecified; R65.20 Severe sepsis without septic shock; E11.9 Type 2 diabetes mellitus without complications; Z79.84 Long term (current) use of oral hypoglycemic drugs; I10 Essential (primary) hypertension; D70.9 Neutropenia, unspecified; F32.A Depression, unspecified; Z53.29 Procedure and treatment not carried out because of patient's decision for other reasons; F40.240 Claustrophobia; Z20.822 Contact with and (suspected) exposure to COVID-19; Z87.820 Personal history of traumatic brain injury
CPT/HCPCS: 36415; 36600; 71045; 80048; 80053; 81003; 82330; 82803; 83036; 83605; 83690; 83735; 84100; 84484; 85025; 85610; 85730; 87040; 87150; 87181; 87493; 87633; 93005; 94640; 94660; 96361; 96374; 96375; 99285; A9270; J1815; J2060; J3370; J7626; 81001; 87086

== ENCOUNTER 2022-07-15 22:01 | Inpatient (IN) | payer BC ==
--- OUTSIDE RECORDS SUMMARY | 2022-07-15 22:19 | EXTERNAL MEDICAL SUMMARY RPT | Continuity of Care Document ---
:1965 Author Organization [facility] Address [address] [place] [address] Phone Care Team Providers Name Role Phone Unavailable Unavailable Unavailable Tom Deluca, Cresencio Unavailable Unavailable Nichoel, Provider Unavailable Unavailable Allergies No information. Encounters No information. Functional Status No information. Immunizations No information. Medications date description facility +0000 IPRATROPIUM-ALBUTEROL [facility] +0000 IPRATROPIUM-ALBUTEROL [facility] Problems No information. Procedures date description facility +0000 Visit Code Hold [facility] [place] +0000 Visit Code Hold [facility] [place] [id number] Nebulizer Treatment [facility] [place] +0000 Nebulizer Treatment [facility] [place] Results/Labs No information. Social History date description facility +0000 Unknown if ever smoked [facility] +0000 Unknown if ever smoked [facility] Vital Signs date measurement value units +0000 BMI BMI 30.37 kg/m2 [id number]+0000 BP_diastolic BP_diastolic 70 mmHg +0000 BP_systolic BP_systolic 129 mmHg [id number]+0000 heart_rate heart_rate 140 /min [id number]+0000 height_metric height_metric 181.61 cm +0000 height_standard height_standard 71.5 in +0000 respiration_rate respiration_rate 56 /min [id number]+0000 temperature_metric temperature_metric 39 C +0000 temperature_standard temperature_standard 1 02.2 F [id number]+0000 weight_metric weight_metric 99.79 kg [id number]+0000 weight_standard weight_standard 220 lb
--- NOTE | 2022-07-15 23:13 | ED Physician Documentation ---
PD HPI DYSPNEA - Stated complaint Stated Complaint: SOA - Chief complaint Chief Complaint: Resp - History obtained from History obtained from: Patient - History of Present Illness Timing - onset: How many weeks ago (approximately 1.5 weeks) Timing - details: Gradual onset Pain level max: 0 Pain level now: 0 Improved by: Rest Worsened by: Exertion Associated symptoms: Fever (patient says he had been having fevers as high as 103.5 but he cannot recall when he last had measured fever) Similar symptoms before: Diagnosis (sepsis, influenza A) Recently seen: Emergency Dept - Additional information Additional information: admitted to [facility] 07/12 for sepsis, respiratory distress requiring bipap. He was also positive for influenza A. He was receiving IV antibiotics as well as tamiflu, but he signed AMA earlier today (07/15/22). Patient says this evening his family became irate with him that he had left the hospital against advice and insisted he go back to the ED. After further conversation to try to clarify , he says his shortness of breath persists and he regrets having left AMA Review of Systems Constitutional: reports: Fever, Fatigue. denies: Chills, Sweats Cardiac: reports: Reviewed and negative Respiratory: reports: Dyspnea, Cough. denies: Hemoptysis, Wheezing GI: reports: Reviewed and negative : denies: Dysuria, Frequency Musculoskeletal: reports: Reviewed and negative Neurologic: reports: Generalized weakness. denies: Focal weakness, Numbness, Headache PD PAST MEDICAL HISTORY - Past Medical History Past Medical History: Yes Cardiovascular: Hypertension Respiratory: None Neuro: None Endocrine/Autoimmune: Type 2 diabetes GI: Cirrhosis : None HEENT: Other Psych: Depression Musculoskeletal: None Derm: None - Past Surgical History Past Surgical History: No - Present Medications Home Medications: Ambulatory Orders Medication Instructions Recorded Confirmed Amlodipine Besylate [Norvasc] 10 mg PO DAILY 07/12/22 07/15/22 Levothyroxine Sodium [Synthroid] 50 mcg PO QDAC 07/12/22 07/15/22 Losartan Potassium [Cozaar] 100 mg PO DAILY 07/12/22 07/15/22 Omeprazole Magnesium 40 mg PO DAILY 07/12/22 07/15/22 buPROPion [Wellbutrin Sr] 300 mg PO DAILY 07/12/22 07/15/22 hydroCHLOROthiazide [Hydrodiuril] 25 mg PO DAILY 07/12/22 07/15/22 Acetaminophen [Tylenol] 650 mg PO Q4HR PRN tab 07/15/22 07/15/22 Oseltamivir [Tamiflu] 75 mg PO BID #4 cap 07/15/22 07/15/22 guaiFENesin [Mucinex] 600 mg PO BID tab 07/15/22 07/15/22 levoFLOXacin [Levaquin] 750 mg PO QD #21 tablet 07/15/22 07/15/22 - Allergies Allergies/Adverse Reactions: Allergies Allergy/AdvReac Type Severity Reaction Status Date / Time Penicillins Allergy Rash Verified 07/15/22 22:14 - Social History Does the pt smoke?: No Smoking Status: Never smoker Does the pt drink ETOH?: No Does the pt have substance abuse?: No - Immunizations Immunizations are current?: Yes - POLST Patient has POLST: No PD ED PE NORMAL - Vitals Vital signs reviewed: Yes - General General: Alert and oriented X 3, Well developed/nourished, Other (tachypneic , appears anxious at times. he is able to speak in full sentences) - HEENT HEENT: PERRL, EOMI, Other (tacky mucous membranes) - Neck Neck: Supple, no meningeal sign - Cardiac Cardiac: No murmur - Respiratory Respiratory: No respiratory distress, Other (tachypneic; bilateral decreased breath sounds, left-sided rhonchi) - Abdomen Abdomen: Soft, Non tender - Derm Derm: Normal color, Warm and dry - Extremities Extremities: No edema PD ED PE EXPANDED - Cardiac Cardiac: Tachy, Regular Rhythm Results - Vitals Vitals: Oxygen O2 Source Nasal cannula Oxygen Flow Rate 2 - Labs Labs: Microbiology 07/15/22 23:57 Blood Culture - Preliminary Blood - Left Iv Start Staphylococcus Aureus 07/15/22 23:56 Blood Culture - Preliminary Blood - Right Arm Staphylococcus Aureus 07/15/22 23:57 Blood Culture (PCR) - Final Blood - Left Iv Start Laboratory Tests 07/15/22 07/15/22 07/15/22 23:56 23:56 23:56 WBC 6.4 RBC 2.96 L Hgb 10.2 L Hct 31.9 L MCV 107.8 H MCH 34.5 H MCHC 32.0 RDW 15.4 H Plt Count 110 L MPV 10.9 Neut # (Auto) Not Reportable Lymph # (Auto) Not Reportable Dewitt # (Auto) Not Reportable Eos # (Auto) Not Reportable Baso # (Auto) Not Reportable Absolute Nucleated RBC Not Reportable Total Counted 100 Band Neuts % (Manual) 0 Abnorm Lymph % (Manual) 0 Metamyelocytes % 1 H Nucleated RBC % Not Reportable Neutrophils # (Manual) 5.1 Lymphocytes # (Manual) 1.0 L Monocytes # (Manual) 0.2 Eosinophils # (Manual) 0.0 Basophils # (Manual) 0.0 Differential Comment MANUAL DIFFERENTIAL Platelet Estimate DECREASED (<130,000) Platelet Morphology NORMAL APPEARANCE RBC Morph Micro Appear 1+ TEARDROP CELLS Sodium 140 Potassium 3.8 Chloride 108 Carbon Dioxide 22 Anion Gap 10.0 BUN 50 H Creatinine 1.0 Estimated GFR (MDRD) 77 L Glucose 181 H Lactic Acid Calcium 8.9 Total Bilirubin 1.0 AST 42 ALT 40 Alkaline Phosphatase 60 B-Natriuretic Peptide 138 H Total Protein 6.2 L Albumin 2.8 L Globulin 3.4 Albumin/Globulin Ratio 0.8 L Lipase 31 Urine Color Urine Clarity Urine pH Ur Specific [place] Urine Protein Urine Glucose (UA) Urine Ketones Urine Occult Blood Urine Nitrite Urine Bilirubin Urine Urobilinogen Ur Leukocyte Esterase Ur Microscopic Review Urine Culture Comments 07/15/22 07/16/22 23:56 01:53 WBC RBC Hgb Hct MCV MCH MCHC RDW Plt Count MPV Neut # (Auto) Lymph # (Auto) Dewitt # (Auto) Eos # (Auto) Baso # (Auto) Absolute Nucleated RBC Total Counted Band Neuts % (Manual) Abnorm Lymph % (Manual) Metamyelocytes % Nucleated RBC % Neutrophils # (Manual) Lymphocytes # (Manual) Monocytes # (Manual) Eosinophils # (Manual) Basophils # (Manual) Differential Comment Platelet Estimate Platelet Morphology RBC Morph Micro Appear Sodium Potassium Chloride Carbon Dioxide Anion Gap BUN Creatinine Estimated GFR (MDRD) Glucose Lactic Acid 2.1 Calcium Total Bilirubin AST ALT Alkaline Phosphatase B-Natriuretic Peptide Total Protein Albumin Globulin Albumin/Globulin Ratio Lipase Urine Color YELLOW Urine Clarity CLEAR Urine pH 6.0 Ur Specific [place] 1.025 Urine Protein NEGATIVE Urine Glucose (UA) NEGATIVE Urine Ketones NEGATIVE Urine Occult Blood NEGATIVE Urine Nitrite NEGATIVE Urine Bilirubin NEGATIVE Urine Urobilinogen 0.2 (NORMAL) Ur Leukocyte Esterase NEGATIVE Ur Microscopic Review NOT INDICATED Urine Culture Comments NOT INDICATED - Rads (name of study) chest xray Radiology: Prelim report reviewed, See rad report PD MEDICAL DECISION MAKING - ED course Complexity details: reviewed old records, reviewed results, re-evaluated patient , considered differential, d/w patient ED course: returns to ED after leaving AMA less than 24 hours ago, reports ongoing dyspnea. He maintains adequate pulse ox during ED stay although clearly tachypneic and cxr demonstrates bilateral airspace opacities right greater than left s/o pneumonia; the findings on cxr are new compared to previous cxr a few days ago (07/12). He is admitted to hospitalist service for IV antibiotics Departure - Departure Disposition: 66 [facility] DC/Xfer Clinical Impression: Pneumonia Qualifiers: Pneumonia type: due to methicillin-sensitive Staphylococcus aureus (MSSA) Laterality: bilateral Lung location: unspecified part of lung Qualified Code(s): J15.211 - Pneumonia due to Methicillin susceptible Staphylococcus aureus Condition: Stable Discharge Date/Time: 07/16/22 03:15
[2022-07-16 00:08] LABS: BASOPHILS % (AUTO) 0.8 %; HCT - HEMATOCRIT 31.9 % (42.0-52.0); HGB - HEMOGLOBIN 10.2 g/dL (14.0-18.0); LYMPHOCYTES % (AUTO) 15.1 %; MEAN CORPUSCULAR HEMOGLOBIN 34.5 pg (27.0-31.0); MEAN CORPUSCULAR VOLUME 107.8 fL (80.0-94.0); MEAN PLATELET VOLUME 10.9 fL (7.4-11.4); MONOCYTES % (AUTO) 4.9 %; NEUTROPHILS % (AUTO) 77.8 %; PLT - PLATELET COUNT 110 10^3/uL (130-450); RED BLOOD COUNT 2.96 10^6/uL (4.70-6.10); RED CELL DISTRIBUTION WIDTH 15.4 % (12.0-15.0); WHITE BLOOD COUNT 6.4 x10^3/uL (4.8-10.8)
[2022-07-16 00:13] LABS: ABNORMAL LYMPHS % (MANUAL) 0 %; BAND NEUTROPHILS % (MANUAL) 0 %
[2022-07-16 00:17] LABS: ALBUMIN 2.8 g/dL (3.2-5.5); ALBUMIN/GLOBULIN RATIO 0.8 (1.0-2.2); CALCIUM 8.9 mg/dL (8.5-10.3); POTASSIUM 3.8 mmol/L (3.5-5.0); TOTAL PROTEIN 6.2 g/dL (6.7-8.2)
[2022-07-16] MEDS ORDERED: ALBUTEROL NEB 2.5 MG/3 ML INH STA (00:32)
[2022-07-16 00:39] LABS: LYMPHOCYTES % (MANUAL) 16 %; METAMYELOCYTES % (MANUAL) 1 %; MONOCYTES # (MANUAL) 0.2 10^3/uL (0.0-1.0); NEUTROPHILS # (MANUAL) 5.1 10^3/uL (1.5-6.6)
[2022-07-16 00:42] LABS: DIFFERENTIAL COMMENT MANUAL DIFFERENTIAL; PLATELET ESTIMATE, MANUAL DECREASED (<130,000) (NORMAL); PLATELET MORPHOLOGY NORMAL APPEARANCE (NORMAL)
--- NOTE | 2022-07-16 00:56 | XRAY Report ---
PROCEDURE: Chest 1 View X-Ray INDICATIONS: dyspnea TECHNIQUE: One view of the chest was acquired. COMPARISON: 07/12/2022 FINDINGS: Surgical changes and devices: None. Lungs and pleura: There are patchy indistinct bilateral airspace opacities, right greater than left. No pleural effusions or pneumothorax. Mediastinum: Mediastinal contours appear normal. Heart size is normal. Bones and chest wall: No suspicious bony lesions. Overlying soft tissues appear unremarkable. IMPRESSION: 1. Patchy indistinct bilateral airspace opacities, right greater than left, suggestive of pneumonia. Findings discussed with Dr. Cruz on 07/16/2022 at 2:34 AM. Reviewed by: Temo Gonzales MD on 07/16/2022 12:54 AM PDT Approved by: Temo Gonzales MD on 07/16/2022 12:54 AM PDT Station ID: [id number]
[2022-07-16] MEDS ORDERED: LORazepam 2 MG/ML VIAL IVP STA (01:22)
[2022-07-16] MEDS ORDERED: levoFLOXacin 750 MG/150 ML 750 MG/150 ML BAG IV STA (01:24)
[2022-07-16 02:05] LABS: BILIRUBIN,URINE NEGATIVE (NEGATIVE); CLARITY,URINE CLEAR (CLEAR); GLUCOSE, URINE (UA) NEGATIVE (NEGATIVE); KETONES,URINE (UA) NEGATIVE (NEGATIVE); LEUKOCYTE ESTERASE, URINE NEGATIVE (NEGATIVE); NITRITE,URINE NEGATIVE (NEGATIVE); OCCULT BLOOD,URINE NEGATIVE (NEGATIVE); PROTEIN,URINE NEGATIVE (NEGATIVE); UROBILINOGEN,URINE 0.2 (NORMAL) E.U./dL (NORMAL)
--- NOTE | 2022-07-16 02:39 | HISTORY & PHYSICAL EXAMINATION ---
Chief Complaint - Chief Complaint Chief Complaint: shortness of breath History of Present Illness - Admitted From Admitted From:: home - History Obtained From History obtained from: patient Exam Limitations: telemedicine - History of Present Illness HPI Comment/Other: Mr Carrillo is a 57 yo M with hx AML s/p BMP 2009 in remission with chronic pancytopenia, HTN, DM II. Presents to ER with c/o shortness of breath. Pt was admitted to hospital/ICU 07/12-07/15, he left AMA yesterday afternoon. Required BIPAP while in ICU, was weaned down to 4 L NC at time of leaving hospital AMA, no home O2. Was treated for sepsis, influenza A pneumonia, MSSA bacteremia. Pt reports that since being at home he has felt very short of breath, weak. Fell twice due to loss of balance, denies LOC. Family encouraged him to return to ER. Pt reports he is feeling short of breath, has cp with cough, sputum production. Denies hemoptysis. Denies recent fevers/chills, had fever last week. Reports his family at home has been sick with viral illness as well. O2 sats 90% on RA, currently on 2 L NC. History - Past Medical History Cardiovascular: reports: Hypertension Respiratory: reports: None Neuro: reports: None Endocrine/Autoimmune: reports: Type 2 diabetes GI: reports: Cirrhosis : reports: None HEENT: reports: Other Psych: reports: Depression Musculoskeletal: reports: None Derm: reports: None MRSA Hx?: Yes - Family & Social History Family History Comment/Other: Unknown because the patient was in too much respiratory distress before he was put on BiPAP in the ICU and fell asleep Social History Notes: No alcohol intake. He never smoked cigarettes. He works full-time. - Substance History Use: Uses substance without health or social issues: NONE - POLST Patient has POLST: No Meds/Allgy - Home Medications Home Medications: Ambulatory Orders Medication Instructions Recorded Confirmed Amlodipine Besylate [Norvasc] 10 mg PO DAILY 07/12/22 07/15/22 Levothyroxine Sodium [Synthroid] 50 mcg PO QDAC 07/12/22 07/15/22 Losartan Potassium [Cozaar] 100 mg PO DAILY 07/12/22 07/15/22 Omeprazole Magnesium 40 mg PO DAILY 07/12/22 07/15/22 buPROPion [Wellbutrin Sr] 300 mg PO DAILY 07/12/22 07/15/22 hydroCHLOROthiazide [Hydrodiuril] 25 mg PO DAILY 07/12/22 07/15/22 Acetaminophen [Tylenol] 650 mg PO Q4HR PRN tab 07/15/22 07/15/22 Oseltamivir [Tamiflu] 75 mg PO BID #4 cap 07/15/22 07/15/22 guaiFENesin [Mucinex] 600 mg PO BID tab 07/15/22 07/15/22 levoFLOXacin [Levaquin] 750 mg PO QD #21 tablet 07/15/22 07/15/22 - Allergies Allergies/Adverse Reactions: Allergies Allergy/AdvReac Type Severity Reaction Status Date / Time Penicillins Allergy Rash Verified 07/15/22 22:14 Review of Systems - Constitutional Constitutional: reports: Fatigue, Fever (last week), Other (fall x 2 lost balance, denies LOC). denies: Chills - Cardiovascular Cariovascular: reports: Chest pain (with coughing) - Respiratory Respiratory: reports: Cough, Sputum production, Wheezing, SOB at rest. denies: Hemoptysis - Gastrointestinal Gastrointestinal: denies: Abdominal pain, Nausea, Vomiting - Integumentary Integumentary: denies: Rash, Pruritis - Neurological Neurological: reports: General weakness Exam - Vital Signs Reviewed Vital Signs: Yes Vital Signs: Vital Signs x48h Temp Pulse Resp BP Pulse Ox O2 Flow Rate 07/16/22 02:28 99 26 H 107/54 L 97 2 07/16/22 01:37 36.5 C 105 H 24 138/87 H 97 2 07/16/22 01:13 97 30 H 131/83 H 100 2 07/16/22 01:04 103 H 33 H 131/83 H 96 2 07/16/22 00:02 36.8 C 96 30 H 144/79 H 97 2 07/15/22 23:24 36.4 C L 101 H 18 151/89 H 95 2 07/15/22 22:14 36.5 C 105 H 22 120/100 H 93 - Physical Exam General Appearance: positive: Mild distress Eyes Bilateral: positive: Normal inspection ENT: positive: ENT inspection nml Neck: positive: Nml inspection Respiratory: negative: No respiratory distress (mild tachypnea w speech, able to speak full sentences) Skin: positive: Color nml, No rash Neurologic/Psychiatric: positive: Oriented x3 Conclusion/Plan - Lab Results Fish Bones: 07/15/22 23:56 07/15/22 23:56 - Other Other Results/Comments: Acute respiratory distress secondary to Influenza A pneumonia -Pt was treated with tamiflu x 3 days, continue -Afebrile, no elevated leukocytosis -Supportive care -DuoNebs PRN -Currently on 2 L NC, wean as tolerated MSSA bacteremia -On blood cultures 07/12 -Continue Levaquin -Repeat blood cultures drawn at admission GLF x 2 -Occurred at home after leaving AMA, likely related to deconditioning, acute illness -Up with assist only -PT consult DM II -SSI -Hold metformin HTN -BP stable, resume antihypertensives as tolerated Hx AML s/p BMT, in remission, chronic pancytopenia -Trend labs, stable Full code DVT ppx: Lovenox sc Clinical telemedicine services delivered using interactive video audio telecommunications while the patient and the rendering provider were not in the same physical location. Core Measures - Anticipated LOS I expect patient to be DC'd or transferred within 96 hours.: Yes - DVT/VTE - Prophylaxis VTE/DVT Prophylaxis med ordered at admit?: Yes Telemedicine Consult Details - Provider Location & Consult Time Telemedicine consultation conducted via videoconferencing?: Yes List names and roles of persons who participated in consult:: Dewayne Yates MD / patient Mandaeismanaid Carrillo Telemedicine provider location:: [place] Time Telemedicine consult began:: 02:00 Time Telemedicine consult completed:: 03:15
[2022-07-16] MEDS ORDERED: ONDANSETRON 4 MG/2 ML VIAL IVP PRN (02:48)
[2022-07-16] MEDS ORDERED: NON FORMULARY MED (Levothyroxine Sodium [Synthroid] 50 MCG Tablet) PO SCH (07:00)
[2022-07-16] MEDS: IPRATROPIUM/ALBUTEROL 3 ML NEB INH PRN ×2 (07:03→16:53)
[2022-07-16] MEDS: LEVOTHYROXINE 25 MCG TABLET PO SCH (07:09)
[2022-07-16] MEDS: INSULIN LISPRO 300 UNIT/3 ML PEN SUBQ SCH ×4 (08:46→21:22)
[2022-07-16] MEDS: buPROPion SR 150 MG TABLET PO SCH (08:46)
[2022-07-16] MEDS: OSELTAMIVIR 75 MG CAPSULE PO SCH ×2 (08:47→21:21)
[2022-07-16] MEDS: SODIUM CHLORIDE FLUSH 0.9% 10 ML SYRINGE IVP SCH ×3 (08:47→23:48)
[2022-07-16] MEDS: ENOXAPARIN 40 MG/0.4 ML SYRINGE SUBQ SCH (08:50)
--- NOTE | 2022-07-16 08:51 | PHARMACY PROGRESS NOTE ---
- Best Possible Medication History Admit Date and Time: 07/16/22 0248 Processed by: Pharmacy Medication History completed: Yes Secondary Source(s): Physician records, Insurance records, Previous admit records As the person ultimately responsible for medication therapy, providers are able to order a medication from an existing home medication list in [facility] via the "Reconcile Routine" prior to Confirmation of that medication by microcomputer support specialist. Such practice is discouraged except when the physician, in their clinical judgment, deems that a medical need exists for a medication without regard to previous use.
[2022-07-16] MEDS: MULTIVITAMIN W/MINERALS TABLET PO SCH (16:31)
[2022-07-16] MEDS: BENZOCAINE/MENTHOL LOZENGE MM PRN (16:31)
[2022-07-16] MEDS: guaiFENesin/CODEINE 5 ML UDC PO PRN ×2 (16:57→23:48)
[2022-07-16 17:17] LABS: ABG BASE EXCESS 0.4 mmol/L (-2.0-3.0); ABG HCO3 23.9 mmol/L (22.0-26.0); ABG PCO2 35 mmHg (34-45); ABG PH 7.46 (7.35-7.45); ABG PO2 72 mmHg (80-100)
[2022-07-16 17:18] LABS: ABG OXYGEN SATURATION 94 % (94-98); ALLEN TEST POSITIVE
[2022-07-16] MEDS: LORazepam 0.5 MG TABLET PO PRN (21:21)
[2022-07-16] MEDS: levoFLOXacin 750 MG/150 ML 750 MG/150 ML BAG IV SCH (22:07)
[2022-07-16] MEDS: ACETAMINOPHEN 325 MG TABLET PO PRN (23:48)
[2022-07-17] MEDS: LORazepam 0.5 MG TABLET PO PRN ×4 (03:04→23:59)
[2022-07-17 05:20] LABS: BASOPHILS % (AUTO) 0.3 %; EOSINOPHILS % (AUTO) 0.3 %; HCT - HEMATOCRIT 28.6 % (42.0-52.0); HGB - HEMOGLOBIN 9.2 g/dL (14.0-18.0); MEAN CORPUSCULAR HEMOGLOBIN 34.3 pg (27.0-31.0); MEAN CORPUSCULAR HGB CONC 32.2 g/dL (32.0-36.0); MEAN CORPUSCULAR VOLUME 106.7 fL (80.0-94.0); MEAN PLATELET VOLUME 11.3 fL (7.4-11.4); MONOCYTES % (AUTO) 5.5 %; NEUTROPHILS % (AUTO) 65.6 %; PLT - PLATELET COUNT 79 10^3/uL (130-450); RED BLOOD COUNT 2.68 10^6/uL (4.70-6.10); RED CELL DISTRIBUTION WIDTH 15.5 % (12.0-15.0); WHITE BLOOD COUNT 3.1 x10^3/uL (4.8-10.8)
[2022-07-17 05:24] LABS: ABNORMAL LYMPHS % (MANUAL) 0 %; BAND NEUTROPHILS % (MANUAL) 0 %
[2022-07-17 05:29] LABS: CALCIUM 7.9 mg/dL (8.5-10.3); CREATININE 0.9 mg/dL (0.6-1.2); POTASSIUM 3.7 mmol/L (3.5-5.0)
[2022-07-17 05:39] LABS: BASOPHILS % (MANUAL) 1 %; LYMPHOCYTES # (MANUAL) 0.7 10^3/uL (1.5-3.5); LYMPHOCYTES % (MANUAL) 22 %; MONOCYTES # (MANUAL) 0.1 10^3/uL (0.0-1.0); NEUTROPHILS # (MANUAL) 2.3 10^3/uL (1.5-6.6)
[2022-07-17 05:40] LABS: DIFFERENTIAL COMMENT MANUAL DIFFERENTIAL; PLATELET ESTIMATE, MANUAL DECREASED (<130,000) (NORMAL); PLATELET MORPHOLOGY NORMAL APPEARANCE (NORMAL); WBC MORPHOLOGY (MULTIPLE) NORMAL APPEARANCE (NORMAL)
[2022-07-17] MEDS: LEVOTHYROXINE 25 MCG TABLET PO SCH (06:41)
[2022-07-17] MEDS: INSULIN LISPRO 300 UNIT/3 ML PEN SUBQ SCH ×4 (09:00→21:25)
[2022-07-17] MEDS: buPROPion SR 150 MG TABLET PO SCH (09:00)
[2022-07-17] MEDS: SODIUM CHLORIDE FLUSH 0.9% 10 ML SYRINGE IVP SCH ×2 (09:01→17:40)
[2022-07-17] MEDS: OSELTAMIVIR 75 MG CAPSULE PO SCH ×2 (09:01→21:26)
[2022-07-17] MEDS: ENOXAPARIN 40 MG/0.4 ML SYRINGE SUBQ SCH (09:06)
[2022-07-17] MEDS: DIPHENOX/ATROPINE 2.5/0.025 MG TABLET PO PRN (11:11)
[2022-07-17] MEDS: MULTIVITAMIN W/MINERALS TABLET PO SCH (12:00)
[2022-07-17] MEDS ORDERED: VANCOMYCIN INJ 2 GM, VANCOMYCIN INJ 500 MG in SODIUM CHLORIDE 0.9% 500 ML IV ONE (12:00)
[2022-07-17] MEDS: SODIUM CHLORIDE FLUSH 0.9% 10 ML SYRINGE IVP PRN (12:03)
[2022-07-17] MEDS: guaiFENesin/CODEINE 5 ML UDC PO PRN ×2 (15:56→23:58)
[2022-07-17] MEDS: ACETAMINOPHEN 325 MG TABLET PO PRN (15:56)
--- NOTE | 2022-07-17 18:00 | PROVIDER PROGRESS NOTE ---
Subjective - Prog Note Date Prog Note Date: 07/17/22 Prog Note Time: 17:58 - Subjective Subjective: Overall he has been short of breath, coughing. His spiked a temp. His blood cultures came back positive yet again. So in reviewing his records his blood cultures were + July 12. July 13. And now July 15 for staff aureus. Vancomycin was started today. Diarrhea has happened occasionally. Anxiety is relatively stable and controlled. Physical therapy did see him because he had falls at home resulting in the readmission. They feel that he is safe with regards to ambulation. But tired. His main complaint in the evening is that the high flow nasal cannula prongs in his nasal passages are making him severely congested. In spite of that he continues to have a heart rate of about 112 and temperature is 38.8. Current Medications - Current Medications Current Medications: Active Medications Acetaminophen (Acetaminophen 325 Mg Tablet) 650 mg PO Q4HR PRN PRN Reason: Pain 1 to 4, or Fever Last Admin: 07/17/22 15:56 Dose: 650 mg Albuterol/Ipratropium (Ipratropium/Albuterol 3 Ml Neb) 3 ml INH Q4HR PRN PRN Reason: Wheezing Last Admin: 07/16/22 16:53 Dose: 3 ml Bupropion HCl (Bupropion Sr 150 Mg Tablet) 300 mg PO DAILY [facility] Last Admin: 07/17/22 09:00 Dose: 300 mg Diphenoxylate HCl/Atropine (Diphenox/Atropine 2.5/0.025 Mg Tablet) 1 tab PO QID PRN PRN Reason: Diarrhea Last Admin: 07/17/22 11:11 Dose: 1 tab Enoxaparin Sodium (Enoxaparin 40 Mg/0.4 Ml Syringe) 40 mg SUBQ DAILY [facility] Last Admin: 07/17/22 09:06 Dose: Not Given Guaifenesin/Codeine Phosphate (Guaifenesin/Codeine 5 Ml Udc) 5 ml PO Q6HR PRN PRN Reason: Cough Last Admin: 07/17/22 15:56 Dose: 5 ml Levofloxacin (Levaquin 750 Mg/150 Ml) 750 mg in 150 mls @ 100 mls/hr IV Q24H [facility] Last Infusion: 07/17/22 07:25 Dose: Infused Vancomycin HCl 1 gm/Vancomycin HCl 500 mg/ Sodium Chloride 500 mls @ 250 mls/hr IV Q12H [facility] Insulin Human Lispro (Insulin Lispro 300 Unit/3 Ml Pen) 1 - 9 unit SUBQ 0800,1200,1700,2100 [facility]; Protocol Last Admin: 07/17/22 17:29 Dose: Not Given Levothyroxine Sodium (Levothyroxine 25 Mcg Tablet) 50 mcg PO QDAC [facility] Last Admin: 07/17/22 06:41 Dose: 50 mcg Lorazepam (Lorazepam 0.5 Mg Tablet) 0.5 mg PO Q6H PRN PRN Reason: Anxiety Last Admin: 07/17/22 17:40 Dose: 0.5 mg Multivitamins/Minerals (Multivitamin W/Minerals Tablet) 1 tab PO QDLUNCH [facility] Last Admin: 07/17/22 12:00 Dose: 1 tab Ondansetron HCl (Ondansetron 4 Mg/2 Ml Vial) 4 mg IVP Q6HR PRN PRN Reason: Nausea / Vomiting Oseltamivir Phosphate (Oseltamivir 75 Mg Capsule) 75 mg PO BID [facility] Stop: 07/17/22 23:59 Last Admin: 07/17/22 09:01 Dose: 75 mg Sodium Chloride (Sodium Chloride Flush 0.9% 10 Ml Syringe) 10 ml IVP PRN PRN PRN Reason: NEEDED PER PROVIDER ORDERS Last Admin: 07/17/22 12:03 Dose: 10 ml Sodium Chloride (Sodium Chloride Flush 0.9% 10 Ml Syringe) 10 ml IVP 0100,0900,1700 [facility] Last Admin: 07/17/22 17:40 Dose: 10 ml Throat Lozenges (Benzocaine/Menthol Lozenge) 1 lozenge MM Q2HR PRN PRN Reason: Throat pain Last Admin: 07/16/22 16:31 Dose: 1 lozenge Amlodipine Besylate [Norvasc] 10 mg PO DAILY 07/12/22 Levothyroxine Sodium [Synthroid] 50 mcg PO QDAC 07/12/22 Losartan Potassium [Cozaar] 100 mg PO DAILY 07/12/22 Omeprazole Magnesium 40 mg PO DAILY 07/12/22 buPROPion [Wellbutrin Sr] 300 mg PO DAILY 07/12/22 hydroCHLOROthiazide [Hydrodiuril] 25 mg PO DAILY 07/12/22 Objective - Vital Signs/Intake & Output Reviewed Vital Signs: Yes Vital Signs: Vital Signs x48h Temp Pulse Pulse Resp BP Pulse Ox O2 Flow Rate 07/17/22 17:42 37.0 C 07/17/22 15:43 38.8 C H 112 H 34 H 121/66 94 35 07/17/22 13:02 37.9 C 119 H 28 H 118/69 92 35 07/17/22 11:46 35 Intake & Output: Intake & Output 07/14/22 07/15/22 07/16/22 07/17/22 23:59 23:59 23:59 23:59 Intake Total 240 2190 2250 Output Total 600 Balance 240 1590 2250 - Objective General Appearance: positive: Alert, Other (He is tachypneic in the high 20s low 30s. I asked him if he short of breath and he says no. He is laying flat in the bed, legs elevated, watching TV. Dressed in a white button-down shirt with khaki pants. Says is a psychological thing he does to be positive) Eyes Bilateral: positive: PERRL, EOMI ENT: positive: No signs of dehydration Neck: positive: No JVD. negative: Stiff neck Respiratory: positive: Rhonchi, Other (Fast shallow respiration but no rib retraction no use of accessory muscles and able to complete full sentences) Cardiovascular: positive: Regular rate & rhythm, Tachycardia Abdomen: positive: Non-tender, No organomegaly, Nml bowel sounds, No distention Skin: positive: Warm, Dry, Other (A couple of skin tears that are very small. Mainly on right elbow and left forearm. But in looking at his skin there is no abscess, pimple, cellulitis) Extremities: positive: Full ROM, No pedal edema Neurologic/Psychiatric: positive: Oriented x3, CN's nml (2-12), Motor nml - Lab Results Fish Bones: 07/17/22 04:45 07/17/22 04:45 Other Labs: Lab Results x24hrs 07/17/22 07/17/22 07/17/22 Range/Units 16:36 11:13 07:34 WBC (4.8-10.8) x10^3/uL RBC (4.70-6.10) 10^6/uL Hgb (14.0-18.0) g/dL Hct (42.0-52.0) % MCV (80.0-94.0) fL MCH (27.0-31.0) pg MCHC (32.0-36.0) g/dL RDW (12.0-15.0) % Plt Count (130-450) 10^3/uL MPV (7.4-11.4) fL Neut # (Auto) Lymph # (Auto) [place] # (Auto) Eos # (Auto) Baso # (Auto) Absolute Nucleated RBC Total Counted Band Neuts % (Manual) (0 - 10) % Abnorm Lymph % (Manual) % Nucleated RBC % Neutrophils # (Manual) (1.5-6.6) 10^3/uL Lymphocytes # (Manual) (1.5-3.5) 10^3/uL Monocytes # (Manual) (0.0-1.0) 10^3/uL Eosinophils # (Manual) (0-0.7) 10^3/uL Basophils # (Manual) (0-0.1) 10^3/uL Differential Comment WBC Morphology (NORMAL) Platelet Estimate (NORMAL) Platelet Morphology (NORMAL) RBC Morph Micro Appear (NORMAL) Sodium (135-145) mmol/L Potassium (3.5-5.0) mmol/L Chloride (101-111) mmol/L Carbon Dioxide (21-32) mmol/L Anion Gap (6-13) BUN (6-20) mg/dL Creatinine (0.6-1.2) mg/dL Estimated GFR (MDRD) (>89) Glucose (70-100) mg/dL POC Whole Bld Glucose 133 H 149 H 108 H (70 - 100) mg/dL Calcium (8.5-10.3) mg/dL 07/17/22 07/17/22 07/16/22 Range/Units 04:45 04:45 20:35 WBC 3.1 L (4.8-10.8) x10^3/uL RBC 2.68 L (4.70-6.10) 10^6/uL Hgb 9.2 L (14.0-18.0) g/dL Hct 28.6 L (42.0-52.0) % MCV 106.7 H (80.0-94.0) fL MCH 34.3 H (27.0-31.0) pg MCHC 32.2 (32.0-36.0) g/dL RDW 15.5 H (12.0-15.0) % Plt Count 79 L (130-450) 10^3/uL MPV 11.3 (7.4-11.4) fL Neut # (Auto) Not Reportable Lymph # (Auto) Not Reportable [place] # (Auto) Not Reportable Eos # (Auto) Not Reportable Baso # (Auto) Not Reportable Absolute Nucleated RBC Not Reportable Total Counted 100 Band Neuts % (Manual) 0 (0 - 10) % Abnorm Lymph % (Manual) 0 % Nucleated RBC % Not Reportable Neutrophils # (Manual) 2.3 (1.5-6.6) 10^3/uL Lymphocytes # (Manual) 0.7 L (1.5-3.5) 10^3/uL Monocytes # (Manual) 0.1 (0.0-1.0) 10^3/uL Eosinophils # (Manual) 0.0 (0-0.7) 10^3/uL Basophils # (Manual) 0.0 (0-0.1) 10^3/uL Differential Comment MANUAL DIFFERENTIAL WBC Morphology NORMAL APPEARANCE (NORMAL) Platelet Estimate DECREASED (<130,000) (NORMAL) Platelet Morphology NORMAL APPEARANCE (NORMAL) RBC Morph Micro Appear 1+ TEARDROP CELLS (NORMAL) Sodium 134 L (135-145) mmol/L Potassium 3.7 (3.5-5.0) mmol/L Chloride 104 (101-111) mmol/L Carbon Dioxide 24 (21-32) mmol/L Anion Gap 6.0 (6-13) BUN 28 H (6-20) mg/dL Creatinine 0.9 (0.6-1.2) mg/dL Estimated GFR (MDRD) 87 L (>89) Glucose 130 H (70-100) mg/dL POC Whole Bld Glucose 103 H (70 - 100) mg/dL Calcium 7.9 L (8.5-10.3) mg/dL ABX Reporting Has patient been on IV antibiotics over the past 48 hours?: Yes Assessment/Plan - Problem List (1) Acute respiratory failure with hypoxia Impression: Due to viral pneumonia. And now I fear he has secondary bacterial pneumonia. He is tachypneic, and requiring high flow nasal cannula. I am treating the underlying causes of infection with initially Tamiflu and now he is getting vancomycin and Levaquin. He meets sepsis criteria with tachycardia, fever, hypoxia with white cell count going down not up. I will continue to provide support. He is a full code. I have supplied with Afrin no spray to see if that will help congestion. I will also talk to respiratory therapy night to see if we can do a face mask, may be a nonrebreather to make him more comfortable and take the prongs out of his nose temporarily (2) Pneumonia Impression: He was sent home on Levaquin to cover MSSA. Rebounded quite quickly at home because of falls and hypoxia. He had left AMA. His chest x-ray has patchy indistinct bilateral airspace opacities, right greater than left. Blood cultures are positive for staph aureus. Today's vancomycin day 1. He did receive a couple of doses with his last day. Blood cultures are continually positive. Plan: Continue vancomycin Try and obtain a sputum culture Qualifiers: Pneumonia type: due to methicillin-sensitive Staphylococcus aureus (MSSA) Laterality: bilateral Lung location: unspecified part of lung Qualified Code(s): J15.211 - Pneumonia due to Methicillin susceptible Staphylococcus aureus (3) Influenza A Impression: He did complete 5 days of Tamiflu with yesterday's dosing. But I fear he is had secondary pneumonia due to his immunocompromise status. For this problem there is not much more I can do except supportive care (4) DM type 2 (diabetes mellitus, type 2) Impression: He is not on any medications on his home list for diabetes. It is diet controlled. Here we are following him with sliding scale insulin and he is stable. No change in orders today Qualifiers: Diabetes mellitus rn long term care insulin use: without shelter use Diabetes mellitus complication status: without complication Qualified Code(s): E11.9 - Type 2 diabetes mellitus without complications (5) HTN (hypertension) Impression: He is usually on home medications of Cozaar, HydroDIURIL, and Norvasc. So far his blood pressure has stayed controlled without medication. Systolic is ranged between 100-121. I am not resuming his medications at this time until he starts getting into the 140s Qualifiers: Hypertension type: primary hypertension Qualified Code(s): I10 - Essential (primary) hypertension (6) Hypothyroid Impression: On his usual medications from home. No changes at this time Qualifiers: Hypothyroidism type: acquired Qualified Code(s): E03.9 - Hypothyroidism, unspecified
[2022-07-17] MEDS ORDERED: OXYMETAZOLINE HCL 100 SPRAYS BOTTLE NAS PRN (18:30)
[2022-07-17] MEDS: levoFLOXacin 750 MG/150 ML 750 MG/150 ML BAG IV SCH (21:26)
[2022-07-17] MEDS: VANCOMYCIN INJ 1 GM, VANCOMYCIN INJ 500 MG in SODIUM CHLORIDE 0.9% 500 ML IV SCH (23:59)
[2022-07-18] MEDS: SODIUM CHLORIDE FLUSH 0.9% 10 ML SYRINGE IVP SCH ×3 (02:35→17:21)
[2022-07-18] MEDS: BENZOCAINE/MENTHOL LOZENGE MM PRN (03:51)
[2022-07-18 04:44] LABS: BASOPHILS % (AUTO) 0.3 %; EOSINOPHILS % (AUTO) 0.6 %; HCT - HEMATOCRIT 30.6 % (42.0-52.0); HGB - HEMOGLOBIN 9.9 g/dL (14.0-18.0); LYMPHOCYTES # (AUTO) 0.7 10^3/uL (1.5-3.5); LYMPHOCYTES % (AUTO) 21.1 %; MEAN CORPUSCULAR HEMOGLOBIN 34.1 pg (27.0-31.0); MEAN CORPUSCULAR HGB CONC 32.4 g/dL (32.0-36.0); MEAN CORPUSCULAR VOLUME 105.5 fL (80.0-94.0); MEAN PLATELET VOLUME 11.1 fL (7.4-11.4); MONOCYTES # (AUTO) 0.2 10^3/uL (0.0-1.0); MONOCYTES % (AUTO) 5.6 %; NEUTROPHILS # (AUTO) 2.4 10^3/uL (1.5-6.6); NEUTROPHILS % (AUTO) 70.3 %; PLT - PLATELET COUNT 64 10^3/uL (130-450); RED CELL DISTRIBUTION WIDTH 15.3 % (12.0-15.0); WHITE BLOOD COUNT 3.4 x10^3/uL (4.8-10.8)
[2022-07-18 04:54] LABS: CALCIUM 7.8 mg/dL (8.5-10.3); CREATININE 0.8 mg/dL (0.6-1.2); POTASSIUM 3.9 mmol/L (3.5-5.0)
[2022-07-18] MEDS: BENZONATATE 100 MG CAPSULE PO PRN (04:54)
[2022-07-18] MEDS: LEVOTHYROXINE 25 MCG TABLET PO SCH (06:13)
[2022-07-18] MEDS: guaiFENesin/CODEINE 5 ML UDC PO PRN ×2 (06:13→19:50)
[2022-07-18] MEDS: LORazepam 0.5 MG TABLET PO PRN ×2 (06:13→21:42)
[2022-07-18] MEDS: buPROPion SR 150 MG TABLET PO SCH (09:30)
[2022-07-18] MEDS: CHOLECALCIFEROL 25 MCG TABLET PO SCH (09:30)
[2022-07-18] MEDS: SACCHAROMYCES BOULARDII 250 MG CAPSULE PO SCH ×2 (09:30→17:21)
[2022-07-18] MEDS: MULTIVITAMIN W/MINERALS TABLET PO SCH (12:00)
[2022-07-18] MEDS: DIPHENOX/ATROPINE 2.5/0.025 MG TABLET PO PRN (12:00)
[2022-07-18] MEDS: VANCOMYCIN INJ 1 GM, VANCOMYCIN INJ 500 MG in SODIUM CHLORIDE 0.9% 500 ML IV SCH (12:07)
[2022-07-18] MEDS: INSULIN LISPRO 300 UNIT/3 ML PEN SUBQ SCH ×4 (12:30→21:34)
--- NOTE | 2022-07-18 12:32 | PROVIDER PROGRESS NOTE ---
Subjective - Prog Note Date Prog Note Date: 07/18/22 Prog Note Time: 12:28 - Subjective Subjective: Just tired. Able to get up in the room. Able to sit up on the bed. No assist needed. He is eating the food was given but he says that he could have better. No nausea, vomiting. Still short of breath and slightly tachypneic with a respiratory rate of 30. He hates the high flow nasal cannula but again reiterates that he cannot tolerate the mask. Current Medications - Current Medications Current Medications: Active Medications Acetaminophen (Acetaminophen 325 Mg Tablet) 650 mg PO Q4HR PRN PRN Reason: Pain 1 to 4, or Fever Last Admin: 07/17/22 15:56 Dose: 650 mg Albuterol/Ipratropium (Ipratropium/Albuterol 3 Ml Neb) 3 ml INH Q4HR PRN PRN Reason: Wheezing Last Admin: 07/16/22 16:53 Dose: 3 ml Benzonatate (Benzonatate 100 Mg Capsule) 100 mg PO TID PRN PRN Reason: Cough Last Admin: 07/18/22 04:54 Dose: 100 mg Bupropion HCl (Bupropion Sr 150 Mg Tablet) 300 mg PO DAILY NIKO Last Admin: 07/17/22 09:00 Dose: 300 mg Cholecalciferol (Cholecalciferol 25 Mcg Tablet) 50 mcg PO DAILY [facility] Diphenoxylate HCl/Atropine (Diphenox/Atropine 2.5/0.025 Mg Tablet) 1 tab PO QID PRN PRN Reason: Diarrhea Last Admin: 07/18/22 12:00 Dose: 1 tab Guaifenesin/Codeine Phosphate (Guaifenesin/Codeine 5 Ml Udc) 5 ml PO Q6HR PRN PRN Reason: Cough Last Admin: 07/18/22 06:13 Dose: 5 ml Levofloxacin (Levaquin 750 Mg/150 Ml) 750 mg in 150 mls @ 100 mls/hr IV Q24H NIKO Last Infusion: 07/17/22 23:00 Dose: Infused Cefazolin Sodium 2 gm/ Sodium (Chloride) 100 mls @ 200 mls/hr IV Q8HR NIKO Insulin Human Lispro (Insulin Lispro 300 Unit/3 Ml Pen) 1 - 9 unit SUBQ 0800,1200,1700,2100 NIKO; Protocol Last Admin: 07/18/22 12:30 Dose: Not Given Levothyroxine Sodium (Levothyroxine 25 Mcg Tablet) 50 mcg PO QDAC [facility] Last Admin: 07/18/22 06:13 Dose: 50 mcg Lorazepam (Lorazepam 0.5 Mg Tablet) 0.5 mg PO Q6H PRN PRN Reason: Anxiety Last Admin: 07/18/22 06:13 Dose: 0.5 mg Multivitamins/Minerals (Multivitamin W/Minerals Tablet) 1 tab PO QDLUNCH [facility] Last Admin: 07/18/22 12:00 Dose: 1 tab Ondansetron HCl (Ondansetron 4 Mg/2 Ml Vial) 4 mg IVP Q6HR PRN PRN Reason: Nausea / Vomiting Oxymetazoline HCl (Oxymetazoline Hcl 100 Sprays Bottle) 2 sprays PARAM BID PRN PRN Reason: Nasal Congestion Last Admin: 07/17/22 20:08 Dose: 2 sprays Saccharomyces Boulardii (Saccharomyces Boulardii 250 Mg Capsule) 250 mg PO BIDWM [facility] Sodium Chloride (Sodium Chloride Flush 0.9% 10 Ml Syringe) 10 ml IVP PRN PRN PRN Reason: NEEDED PER PROVIDER ORDERS Last Admin: 07/17/22 12:03 Dose: 10 ml Sodium Chloride (Sodium Chloride Flush 0.9% 10 Ml Syringe) 10 ml IVP 0100,0900,1700 [facility] Last Admin: 07/18/22 12:00 Dose: 10 ml Throat Lozenges (Benzocaine/Menthol Lozenge) 1 lozenge MM Q2HR PRN PRN Reason: Throat pain Last Admin: 07/18/22 03:51 Dose: 1 lozenge Amlodipine Besylate [Norvasc] 10 mg PO DAILY 07/12/22 Levothyroxine Sodium [Synthroid] 50 mcg PO QDAC 07/12/22 Losartan Potassium [Cozaar] 100 mg PO DAILY 07/12/22 Omeprazole Magnesium 40 mg PO DAILY 07/12/22 buPROPion [Wellbutrin Sr] 300 mg PO DAILY 07/12/22 hydroCHLOROthiazide [Hydrodiuril] 25 mg PO DAILY 07/12/22 Objective - Vital Signs/Intake & Output Reviewed Vital Signs: Yes Vital Signs: Vital Signs x48h Temp Pulse Resp BP Pulse Ox O2 Flow Rate 07/18/22 07:51 35 07/18/22 07:42 37.2 C 103 H 30 H 134/80 H 95 35 Intake & Output: Intake & Output 07/15/22 07/16/22 07/17/22 07/18/22 23:59 23:59 23:59 23:59 Intake Total 240 2190 2700 1300 Output Total 600 400 Balance 240 1590 2700 900 - Objective General Appearance: positive: Alert, Other (Although he is tachypneic to 30, he does have fast shallow respiration but is in no distress. He is able to have a complete conversation with me, no use of accessory muscles) Eyes Bilateral: positive: PERRL, EOMI ENT: positive: No signs of dehydration Neck: positive: No JVD Respiratory: positive: No respiratory distress (In spite of a respiratory rate in the high 20s low 30s), Rhonchi. negative: Wheezes, Rales Cardiovascular: positive: Regular rate & rhythm, Tachycardia (Occasionally) Abdomen: positive: Non-tender, No organomegaly, Nml bowel sounds, No distention Skin: positive: Warm, Dry Extremities: positive: Pedal edema Neurologic/Psychiatric: positive: Oriented x3, CN's nml (2-12), Motor nml - Lab Results Fish Bones: 07/19/22 04:31 07/19/22 04:31 Other Labs: Lab Results x24hrs 07/18/22 07/18/22 07/18/22 Range/Units 11:22 07:38 04:32 WBC (4.8-10.8) x10^3/uL RBC (4.70-6.10) 10^6/uL Hgb (14.0-18.0) g/dL Hct (42.0-52.0) % MCV (80.0-94.0) fL MCH (27.0-31.0) pg MCHC (32.0-36.0) g/dL RDW (12.0-15.0) % Plt Count (130-450) 10^3/uL MPV (7.4-11.4) fL Neut # (Auto) (1.5-6.6) 10^3/uL Lymph # (Auto) (1.5-3.5) 10^3/uL Kane # (Auto) (0.0-1.0) 10^3/uL Eos # (Auto) (0.0-0.7) 10^3/uL Baso # (Auto) (0.0-0.1) 10^3/uL Absolute Nucleated RBC x10^3/uL Nucleated RBC % /100WBC Sodium 132 L (135-145) mmol/L Potassium 3.9 (3.5-5.0) mmol/L Chloride 98 L (101-111) mmol/L Carbon Dioxide 25 (21-32) mmol/L Anion Gap 9.0 (6-13) BUN 18 (6-20) mg/dL Creatinine 0.8 (0.6-1.2) mg/dL Estimated GFR (MDRD) 99 (>89) Glucose 141 H (70-100) mg/dL POC Whole Bld Glucose 116 H 128 H (70 - 100) mg/dL Calcium 7.8 L (8.5-10.3) mg/dL 07/18/22 07/17/22 Range/Units 04:32 16:36 WBC 3.4 L (4.8-10.8) x10^3/uL RBC 2.90 L (4.70-6.10) 10^6/uL Hgb 9.9 L (14.0-18.0) g/dL Hct 30.6 L (42.0-52.0) % MCV 105.5 H (80.0-94.0) fL MCH 34.1 H (27.0-31.0) pg MCHC 32.4 (32.0-36.0) g/dL RDW 15.3 H (12.0-15.0) % Plt Count 64 L (130-450) 10^3/uL MPV 11.1 (7.4-11.4) fL Neut # (Auto) 2.4 (1.5-6.6) 10^3/uL Lymph # (Auto) 0.7 L (1.5-3.5) 10^3/uL Kane # (Auto) 0.2 (0.0-1.0) 10^3/uL Eos # (Auto) 0.0 (0.0-0.7) 10^3/uL Baso # (Auto) 0.0 (0.0-0.1) 10^3/uL Absolute Nucleated RBC 0.00 x10^3/uL Nucleated RBC % 0.0 /100WBC Sodium (135-145) mmol/L Potassium (3.5-5.0) mmol/L Chloride (101-111) mmol/L Carbon Dioxide (21-32) mmol/L Anion Gap (6-13) BUN (6-20) mg/dL Creatinine (0.6-1.2) mg/dL Estimated GFR (MDRD) (>89) Glucose (70-100) mg/dL POC Whole Bld Glucose 133 H (70 - 100) mg/dL Calcium (8.5-10.3) mg/dL ABX Reporting Has patient been on IV antibiotics over the past 48 hours?: Yes Assessment/Plan - Problem List (1) MSSA bacteremia Impression: Blood cultures are positive for staph aureus, MSSA. He was positive July 12. July 13. And July 15. This is on Levaquin. He was initially on vancomycin but was switched to Levaquin because it was MSSA. Today's vancomycin day 2. He did receive a couple of doses with his last day. ECHO does not show valvular heart disease. He doesnt have a port of central line He doesn't have a skin breakdown or cellulits Suspect he has Staph pna as a complication of influenza A pna. Plan: It is MSSA on sensitivity today so he will be changed to ancef. I note he has PCN allergy. Watch for reaction. Add pepcid for now. (2) Acute respiratory failure with hypoxia Due to viral pneumonia. And now I fear he has secondary bacterial pneumonia. He has been tachypneic, and requiring high flow nasal cannula since admission. I treated the underlying causes of infection with Tamiflu and he completed the 5 day yesterday. Now he is getting vancomycin and Levaquin. He meets sepsis criteria with tachycardia, fever, hypoxia with white cell count going down not up. Still on high flow nasal cannula. We had about 40% yesterday and he is 35% today. 95% O2 sat. He does not like the nasal prongs, then I started aspirin yesterday. I did offer him a facemask but he is claustrophobic and he does not want the facemask. I will continue to provide support. He is a full code. (3) Pneumonia Impression: He was sent home on Levaquin to cover MSSA. Rebounded quite quickly at home because of falls and hypoxia. He had previously left AMA. His chest x-ray has patchy indistinct bilateral airspace opacities, right greater than left. Blood cultures are positive for MSSA. Today's vancomycin day 2. He did receive a couple of doses Of vancomycin with His last day. But he was changed over to Levaquin. Blood cultures are positive as above so I do think this may be staph pneumonia. Plan: Changed to Ancef 2 g. Repeat blood cultures in 48 hours. Qualifiers: Pneumonia type: due to methicillin-sensitive Staphylococcus aureus (MSSA) Laterality: bilateral Lung location: unspecified part of lung Qualified Code(s): J15.211 - Pneumonia due to Methicillin susceptible Staphylococcus aureus (4) Influenza A Impression: He did complete 5 days of Tamiflu with yesterday's dosing. But I fear he is had secondary pneumonia due to his immunocompromise status. For this problem there is not much more I can do except supportive care (5) DM type 2 (diabetes mellitus, type 2) Impression: He is not on any medications on his home list for diabetes. It is diet controlled. Here we are following him with sliding scale insulin and he is stab le. No change in orders Qualifiers: Diabetes mellitus shelter insulin use: without shelter use Diabetes mellitus complication status: without complication Qualified Code(s): E11.9 - Type 2 diabetes mellitus without complications (6) HTN (hypertension) Impression: He is usually on home medications of Cozaar, HydroDIURIL, and Norvasc. So far his blood pressure has stayed controlled without medication. Systolic is ranged between 118-134. I am not resuming his medications at this time until he starts getting into the 140s Qualifiers: Hypertension type: primary hypertension Qualified Code(s): I10 - Essential (primary) hypertension (7) Hypothyroid Impression: On his usual medications from home. 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 He is on Lovenox for DVT prophylaxis. I will stop the Lovenox and change him to OSWALDO m[place]o. He is ambulating in the room
[2022-07-18] MEDS ORDERED: SODIUM CHLORIDE 0.9% 50 ML IV ONE (21:31)
[2022-07-18] MEDS ORDERED: ceFAZolin 2 GM in SODIUM CHLORIDE 0.9% MINIBAG 100 ML IV SCH (22:00)
[2022-07-18] MEDS: levoFLOXacin 750 MG/150 ML 750 MG/150 ML BAG IV SCH (22:11)
[2022-07-19] MEDS: ACETAMINOPHEN 325 MG TABLET PO PRN ×2 (00:57→23:48)
[2022-07-19] MEDS: BENZONATATE 100 MG CAPSULE PO PRN ×2 (00:57→18:35)
[2022-07-19] MEDS: IPRATROPIUM/ALBUTEROL 3 ML NEB INH PRN (01:07)
[2022-07-19] MEDS: SODIUM CHLORIDE FLUSH 0.9% 10 ML SYRINGE IVP SCH ×4 (01:14→23:48)
[2022-07-19] MEDS: guaiFENesin/CODEINE 5 ML UDC PO PRN ×2 (01:46→16:25)
[2022-07-19 04:45] LABS: BASOPHILS % (AUTO) 0.3 %; EOSINOPHILS % (AUTO) 0.8 %; HCT - HEMATOCRIT 27.2 % (42.0-52.0); LYMPHOCYTES % (AUTO) 26.4 %; MEAN CORPUSCULAR HGB CONC 33.1 g/dL (32.0-36.0); MEAN CORPUSCULAR VOLUME 105.8 fL (80.0-94.0); MEAN PLATELET VOLUME 11.2 fL (7.4-11.4); MONOCYTES # (AUTO) 0.2 10^3/uL (0.0-1.0); MONOCYTES % (AUTO) 6.1 %; NEUTROPHILS # (AUTO) 2.3 10^3/uL (1.5-6.6); NEUTROPHILS % (AUTO) 63.6 %; PLT - PLATELET COUNT 55 10^3/uL (130-450); RED BLOOD COUNT 2.57 10^6/uL (4.70-6.10); RED CELL DISTRIBUTION WIDTH 15.3 % (12.0-15.0); WHITE BLOOD COUNT 3.6 x10^3/uL (4.8-10.8)
[2022-07-19 04:52] LABS: CALCIUM 7.9 mg/dL (8.5-10.3); CREATININE 0.8 mg/dL (0.6-1.2); POTASSIUM 3.5 mmol/L (3.5-5.0)
[2022-07-19] MEDS: LEVOTHYROXINE 25 MCG TABLET PO SCH (06:17)
[2022-07-19] MEDS: SACCHAROMYCES BOULARDII 250 MG CAPSULE PO SCH ×2 (07:49→16:25)
[2022-07-19] MEDS: buPROPion SR 150 MG TABLET PO SCH (07:49)
[2022-07-19] MEDS: INSULIN LISPRO 300 UNIT/3 ML PEN SUBQ SCH ×4 (07:49→21:04)
[2022-07-19] MEDS: CHOLECALCIFEROL 25 MCG TABLET PO SCH (07:50)
--- NOTE | 2022-07-19 09:16 | PROVIDER PROGRESS NOTE ---
Subjective - Prog Note Date Prog Note Date: 07/19/22 Prog Note Time: 09:05 - Subjective Pt reports feeling: Improved Subjective: He says he feels about the same but I am noticing that he is more comfortable, less tachypneic, and is requiring less oxygen to maintain O2 sats. He is able to go from high flow nasal cannula to nasal cannula to maintain O2 sats now Current Medications - Current Medications Current Medications: Active Medications Acetaminophen (Acetaminophen 325 Mg Tablet) 650 mg PO Q4HR PRN PRN Reason: Pain 1 to 4, or Fever Last Admin: 07/19/22 00:57 Dose: 650 mg Albuterol/Ipratropium (Ipratropium/Albuterol 3 Ml Neb) 3 ml INH Q4HR PRN PRN Reason: Wheezing Last Admin: 07/19/22 01:07 Dose: 3 ml Benzonatate (Benzonatate 100 Mg Capsule) 100 mg PO TID PRN PRN Reason: Cough Last Admin: 07/19/22 00:57 Dose: 100 mg Bupropion HCl (Bupropion Sr 150 Mg Tablet) 300 mg PO DAILY NIKO Last Admin: 07/19/22 07:49 Dose: 300 mg Cholecalciferol (Cholecalciferol 25 Mcg Tablet) 50 mcg PO DAILY NIKO Last Admin: 07/19/22 07:50 Dose: 50 mcg Diphenoxylate HCl/Atropine (Diphenox/Atropine 2.5/0.025 Mg Tablet) 1 tab PO QID PRN PRN Reason: Diarrhea Last Admin: 07/18/22 12:00 Dose: 1 tab Guaifenesin/Codeine Phosphate (Guaifenesin/Codeine 5 Ml Udc) 5 ml PO Q6HR PRN PRN Reason: Cough Last Admin: 07/19/22 01:46 Dose: 5 ml Levofloxacin (Levaquin 750 Mg/150 Ml) 750 mg in 150 mls @ 100 mls/hr IV Q24H NIKO Last Infusion: 07/18/22 23:41 Dose: Infused Cefazolin Sodium 2 gm/ Sodium (Chloride) 50 mls @ 100 mls/hr IV Q8HR NIKO Last Infusion: 07/19/22 06:46 Dose: Infused Insulin Human Lispro (Insulin Lispro 300 Unit/3 Ml Pen) 1 - 9 unit SUBQ 0800,1200,1700,2100 NIKO; Protocol Last Admin: 07/19/22 07:49 Dose: Not Given Levothyroxine Sodium (Levothyroxine 25 Mcg Tablet) 50 mcg PO QDAC [facility] Last Admin: 07/19/22 06:17 Dose: 50 mcg Lorazepam (Lorazepam 0.5 Mg Tablet) 0.5 mg PO Q6H PRN PRN Reason: Anxiety Last Admin: 07/18/22 21:42 Dose: 0.5 mg Multivitamins/Minerals (Multivitamin W/Minerals Tablet) 1 tab PO QDLUNCH [facility] Last Admin: 07/18/22 12:00 Dose: 1 tab Ondansetron HCl (Ondansetron 4 Mg/2 Ml Vial) 4 mg IVP Q6HR PRN PRN Reason: Nausea / Vomiting Oxymetazoline HCl (Oxymetazoline Hcl 100 Sprays Bottle) 2 sprays PARAM BID PRN PRN Reason: Nasal Congestion Last Admin: 07/17/22 20:08 Dose: 2 sprays Saccharomyces Boulardii (Saccharomyces Boulardii 250 Mg Capsule) 250 mg PO BIDWM [facility] Last Admin: 07/19/22 07:49 Dose: 250 mg Sodium Chloride (Sodium Chloride Flush 0.9% 10 Ml Syringe) 10 ml IVP PRN PRN PRN Reason: NEEDED PER PROVIDER ORDERS Last Admin: 07/17/22 12:03 Dose: 10 ml Sodium Chloride (Sodium Chloride Flush 0.9% 10 Ml Syringe) 10 ml IVP 0 100,0900,1700 [facility] Last Admin: 07/19/22 06:17 Dose: 10 ml Throat Lozenges (Benzocaine/Menthol Lozenge) 1 lozenge MM Q2HR PRN PRN Reason: Throat pain Last Admin: 07/18/22 03:51 Dose: 1 lozenge Amlodipine Besylate [Norvasc] 10 mg PO DAILY 07/12/22 Levothyroxine Sodium [Synthroid] 50 mcg PO QDAC 07/12/22 Losartan Potassium [Cozaar] 100 mg PO DAILY 07/12/22 Omeprazole Magnesium 40 mg PO DAILY 07/12/22 buPROPion [Wellbutrin Sr] 300 mg PO DAILY 07/12/22 hydroCHLOROthiazide [Hydrodiuril] 25 mg PO DAILY 07/12/22 Objective - Vital Signs/Intake & Output Reviewed Vital Signs: Yes Vital Signs: Vital Signs x48h Temp Pulse Resp BP Pulse Ox O2 Flow Rate 07/19/22 08:00 36.4 C L 89 22 138/68 H 97 4 07/19/22 03:10 92 20 93 4 Intake & Output: Intake & Output 07/16/22 07/17/22 07/18/22 07/19/22 23:59 23:59 23:59 23:59 Intake Total 2190 2700 3190 200 Output Total 600 400 200 Balance 1590 2700 2790 0 - Objective General Appearance: positive: Alert, Other (comfortable, joking that he lives here and needs to get his mail forwarded) Eyes Bilateral: positive: PERRL, EOMI ENT: positive: No signs of dehydration Neck: positive: No JVD Respiratory: positive: No respiratory distress, Rhonchi (both lungs, faint), Other (no cough, comfortable, no use of acessory muscles). negative: Wheezes, Rales Cardiovascular: positive: Regular rate & rhythm. negative: Tachycardia Abdomen: positive: Non-tender, No organomegaly, Nml bowel sounds, No distention Skin: positive: Warm, Dry Extremities: positive: Full ROM, No pedal edema Neurologic/Psychiatric: positive: Oriented x3, CN's nml (2-12), Motor nml - Lab Results Fish Bones: 07/19/22 04:31 07/19/22 04:31 Other Labs: Lab Results x24hrs 07/19/22 07/19/22 07/19/22 Range/Units 07:36 04:31 04:31 WBC 3.6 L (4.8-10.8) x10^3/uL RBC 2.57 L (4.70-6.10) 10^6/uL Hgb 9.0 L (14.0-18.0) g/dL Hct 27.2 L (42.0-52.0) % MCV 105.8 H (80.0-94.0) fL MCH 35.0 H (27.0-31.0) pg MCHC 33.1 (32.0-36.0) g/dL RDW 15.3 H (12.0-15.0) % Plt Count 55 L (130-450) 10^3/uL MPV 11.2 (7.4-11.4) fL Neut # (Auto) 2.3 (1.5-6.6) 10^3/uL Lymph # (Auto) 1.0 L (1.5-3.5) 10^3/uL Quay # (Auto) 0.2 (0.0-1.0) 10^3/uL Eos # (Auto) 0.0 (0.0-0.7) 10^3/uL Baso # (Auto) 0.0 (0.0-0.1) 10^3/uL Absolute Nucleated RBC 0.00 x10^3/uL Nucleated RBC % 0.0 /100WBC Sodium 138 (135-145) mmol/L Potassium 3.5 (3.5-5.0) mmol/L Chloride 102 (101-111) mmol/L Carbon Dioxide 29 (21-32) mmol/L Anion Gap 7.0 (6-13) BUN 14 (6-20) mg/dL Creatinine 0.8 (0.6-1.2) mg/dL Estimated GFR (MDRD) 99 (>89) Glucose 145 H (70-100) mg/dL POC Whole Bld Glucose 136 H (70 - 100) mg/dL Calcium 7.9 L (8.5-10.3) mg/dL 07/18/22 07/18/22 07/18/22 Range/Units 21:03 16:36 11:22 WBC (4.8-10.8) x10^3/uL RBC (4.70-6.10) 10^6/uL Hgb (14.0-18.0) g/dL Hct (42.0-52.0) % MCV (80.0-94.0) fL MCH (27.0-31.0) pg MCHC (32.0-36.0) g/dL RDW (12.0-15.0) % Plt Count (130-450) 10^3/uL MPV (7.4-11.4) fL Neut # (Auto) (1.5-6.6) 10^3/uL Lymph # (Auto) (1.5-3.5) 10^3/uL Quay # (Auto) (0.0-1.0) 10^3/uL Eos # (Auto) (0.0-0.7) 10^3/uL Baso # (Auto) (0.0-0.1) 10^3/uL Absolute Nucleated RBC x10^3/uL Nucleated RBC % /100WBC Sodium (135-145) mmol/L Potassium (3.5-5.0) mmol/L Chloride (101-111) mmol/L Carbon Dioxide (21-32) mmol/L Anion Gap (6-13) BUN (6-20) mg/dL Creatinine (0.6-1.2) mg/dL Estimated GFR (MDRD) (>89) Glucose (70-100) mg/dL POC Whole Bld Glucose 150 H 169 H 116 H (70 - 100) mg/dL Calcium (8.5-10.3) mg/dL ABX Reporting Has patient been on IV antibiotics over the past 48 hours?: Yes Assessment/Plan - Problem List (1) MSSA bacteremia Impression: Blood cultures are positive for staph aureus, MSSA. He was positive July 12. July 13. And July 15. This is on Levaquin. He was initially on vancomycin but was switched to Levaquin because it was MSSA sensitive. Did 2 days of vancomycin/levaquin and changed to Ancef 07/18. Since then his HR down, RR down and needs less 02. ECHO does not show valvular heart disease. He doesnt have a port of central line He doesn't have a skin breakdown or cellulits Suspect he has Staph pna as a complication of influenza A pna. Plan: It is MSSA on sensitivity today. Ancef Day #2 today. He is allergic to PCN and so far no reaction. Skin is w/o rash. Did 2 days of vancomycin and changed to Ancef 07/18, Current standard is to treat uncomplicated staph bacteremia with 14 days of IV antibiotic therapy. This is to start from the first negative blood culture. I will be repeating blood cultures today since he has been on Ancef now for over 24 hours. (2) Acute respiratory failure with hypoxia improving with less 02 requirement Due to viral pneumonia. And now I fear he has secondary bacterial pneumonia. He has been tachypneic, and requiring high flow nasal cannula since admission. I treated the underlying causes of infection with Tamiflu and he completed the 5 day 07/17. He was getting vancomycin and Levaquin with readmit 07/16. He met sepsis criteria with tachycardia, fever, hypoxia with white cell count going down not up. Was requiring high flow nasal cannula at 40% on admit and 35% 07/17. We are able to downgrade to plain NC and he is 88% on room air but 94% with 2-3 liters. I will continue to provide support. He is a full code. (3) Secondary Pneumonia Impression: He was sent home AMA on Levaquin to cover MSSA. Readmitted quite quickly from home because of falls and hypoxia. His chest x-ray has patchy indistinct bilateral airspace opacities, right greater than left. Blood cultures are positive for MSSA so I feel his pna is secondary complication of influenza pna. Did 2 days of vancomycin and levaquin and changed to Ancef 07/18. Improved today Plan: Continue Ancef 2 g. Repeat blood cultures today. Qualifiers: Pneumonia type: due to methicillin-sensitive Staphylococcus aureus (MSSA) Laterality: bilateral Lung location: unspecified part of lung Qualified Code(s): J15.211 - Pneumonia due to Methicillin susceptible Staphylococcus aureus (4) Influenza A Impression: He did complete 5 days of Tamiflu with 07/17 dosing. But I fear he is had secondary pneumonia due to his immunocompromise status. For this problem there is not much more I can do except supportive care (5) DM type 2 (diabetes mellitus, type 2) Impression: He is not on any medications on his home list for diabetes. It is diet controlled. Here we are following him with sliding scale insulin and he is stable. No change in orders Qualifiers: Diabetes mellitus medical terminologist insulin use: without penitentiary use Diabetes mellitus complication status: without complication Qualified Code(s): E11.9 - Type 2 diabetes mellitus without complications (6) HTN (hypertension) Impression: He is usually on home medications of Cozaar, HydroDIURIL, and Norvasc. So far his blood pressure has stayed controlled without medication. Systolic is 138 this am. If he continues to be 138 or greater with today's BP, I will resume cozaar first. Qualifiers: Hypertension type: primary hypertension Qualified Code(s): I10 - Essential (primary) hypertension (7) Hypothyroid Impression: On his usual medications from home. 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 He was on Lovenox for DVT prophylaxis. I stopped the Lovenox and change him to OSWALDO [place]. He is ambulating in the room
[2022-07-19] MEDS: MULTIVITAMIN W/MINERALS TABLET PO SCH (12:15)
[2022-07-19] MEDS: SODIUM CHLORIDE FLUSH 0.9% 10 ML SYRINGE IVP PRN (14:07)
[2022-07-19] MEDS: LORazepam 0.5 MG TABLET PO PRN (21:02)
[2022-07-19] MEDS: ZOLPIDEM 5 MG TABLET PO PRN (21:03)
[2022-07-19] MEDS: levoFLOXacin 750 MG/150 ML 750 MG/150 ML BAG IV SCH (21:48)
[2022-07-20] MEDS: SODIUM CHLORIDE FLUSH 0.9% 10 ML SYRINGE IVP PRN (05:28)
[2022-07-20] MEDS: LEVOTHYROXINE 25 MCG TABLET PO SCH (05:28)
[2022-07-20] MEDS: buPROPion SR 150 MG TABLET PO SCH (07:37)
[2022-07-20] MEDS: SACCHAROMYCES BOULARDII 250 MG CAPSULE PO SCH ×2 (07:38→17:08)
[2022-07-20] MEDS: CHOLECALCIFEROL 25 MCG TABLET PO SCH (07:38)
[2022-07-20] MEDS: INSULIN LISPRO 300 UNIT/3 ML PEN SUBQ SCH ×4 (07:42→21:29)
[2022-07-20] MEDS: SODIUM CHLORIDE FLUSH 0.9% 10 ML SYRINGE IVP SCH ×2 (07:42→17:08)
[2022-07-20] MEDS: MULTIVITAMIN W/MINERALS TABLET PO SCH (11:38)
[2022-07-20] MEDS: guaiFENesin/CODEINE 5 ML UDC PO PRN ×2 (11:38→17:08)
[2022-07-20] MEDS: DIPHENOX/ATROPINE 2.5/0.025 MG TABLET PO PRN (11:38)
--- NOTE | 2022-07-20 13:39 | PROVIDER PROGRESS NOTE ---
Subjective - Prog Note Date Prog Note Date: 07/20/22 Prog Note Time: 13:46 - Subjective Pt reports feeling: Improved Subjective: Today systolic is 119. He is depressed. 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 He just cannot run it from here and he feels like he is going to have to declare bankruptcy. Overall his tachypnea is improved, heart rate is improved, oxygen requirement is stable at 3 L to saturate. There is no cough. Energy is improving. Appetite is still hit or miss. Current Medications - Current Medications Current Medications: Active Medications Acetaminophen (Acetaminophen 325 Mg Tablet) 650 mg PO Q4HR PRN PRN Reason: Pain 1 to 4, or Fever Last Admin: 07/19/22 23:48 Dose: 650 mg Albuterol/Ipratropium (Ipratropium/Albuterol 3 Ml Neb) 3 ml INH Q4HR PRN PRN Reason: Wheezing Last Admin: 07/19/22 01:07 Dose: 3 ml Benzonatate (Benzonatate 100 Mg Capsule) 100 mg PO TID PRN PRN Reason: Cough Last Admin: 07/19/22 18:35 Dose: 100 mg Bupropion HCl (Bupropion Sr 150 Mg Tablet) 300 mg PO DAILY [facility] Last Admin: 07/20/22 07:37 Dose: 300 mg Cholecalciferol (Cholecalciferol 25 Mcg Tablet) 50 mcg PO DAILY NIKO Last Admin: 07/20/22 07:38 Dose: 50 mcg Diphenoxylate HCl/Atropine (Diphenox/Atropine 2.5/0.025 Mg Tablet) 1 tab PO QID PRN PRN Reason: Diarrhea Last Admin: 07/20/22 11:38 Dose: 1 tab Guaifenesin/Codeine Phosphate (Guaifenesin/Codeine 5 Ml Udc) 5 ml PO Q6HR PRN PRN Reason: Cough Last Admin: 07/20/22 11:38 Dose: 5 ml Levofloxacin (Levaquin 750 Mg/150 Ml) 750 mg in 150 mls @ 100 mls/hr IV Q24H [facility] Last Infusion: 07/19/22 23:18 Dose: Infused Cefazolin Sodium 2 gm/ Sodium (Chloride) 50 mls @ 100 mls/hr IV Q8HR [facility] Last Infusion: 07/20/22 07:24 Dose: Infused Insulin Human Lispro (Insulin Lispro 300 Unit/3 Ml Pen) 1 - 9 unit SUBQ 0800,1200,1700,2100 [facility]; Protocol Last Admin: 07/20/22 11:53 Dose: 1 unit Levothyroxine Sodium (Levothyroxine 25 Mcg Tablet) 50 mcg PO QDAC [facility] Last Admin: 07/20/22 05:28 Dose: 50 mcg Lorazepam (Lorazepam 0.5 Mg Tablet) 0.5 mg PO Q6H PRN PRN Reason: Anxiety Last Admin: 07/19/22 21:02 Dose: 0.5 mg Multivitamins/Minerals (Multivitamin W/Minerals Tablet) 1 tab PO QDLUNCH [facility] Last Admin: 07/20/22 11:38 Dose: 1 tab Ondansetron HCl (Ondansetron 4 Mg/2 Ml Vial) 4 mg IVP Q6HR PRN PRN Reason: Nausea / Vomiting Oxymetazoline HCl (Oxymetazoline Hcl 100 Sprays Bottle) 2 sprays PARAM BID PRN PRN Reason: Nasal Congestion Last Admin: 07/17/22 20:08 Dose: 2 sprays Saccharomyces Boulardii (Saccharomyces Boulardii 250 Mg Capsule) 250 mg PO BIDWM [facility] Last Admin: 07/20/22 07:38 Dose: 250 mg Sodium Chloride (Sodium Chloride Flush 0.9% 10 Ml Syringe) 10 ml IVP PRN PRN PRN Reason: NEEDED PER PROVIDER ORDERS Last Admin: 07/20/22 05:28 Dose: 10 ml Sodium Chloride (Sodium Chloride Flush 0.9% 10 Ml Syringe) 10 ml IVP 0100,0900,1700 [facility] Last Admin: 07/20/22 07:42 Dose: 10 ml Throat Lozenges (Benzocaine/Menthol Lozenge) 1 lozenge MM Q2HR PRN PRN Reason: Throat pain Last Admin: 07/18/22 03:51 Dose: 1 lozenge Zolpidem Tartrate (Zolpidem 5 Mg Tablet) 5 mg PO QPM PRN PRN Reason: Insomnia Last Admin: 07/19/22 21:03 Dose: 5 mg Amlodipine Besylate [Norvasc] 10 mg PO DAILY 07/12/22 Levothyroxine Sodium [Synthroid] 50 mcg PO QDAC 07/12/22 Losartan Potassium [Cozaar] 100 mg PO DAILY 07/12/22 Omeprazole Magnesium 40 mg PO DAILY 07/12/22 buPROPion [Wellbutrin Sr] 300 mg PO DAILY 07/12/22 hydroCHLOROthiazide [Hydrodiuril] 25 mg PO DAILY 07/12/22 Objective - Vital Signs/Intake & Output Reviewed Vital Signs: Yes Vital Signs: Vital Signs x48h Temp Pulse Resp BP Pulse Ox O2 Flow Rate 07/20/22 07:42 36.7 C 96 17 119/56 L 97 3 07/20/22 07:30 3 Intake & Output: Intake & Output 07/17/22 07/18/22 07/19/22 07/20/22 23:59 23:59 23:59 23:59 Intake Total 2700 3190 2380 810 Output Total 400 200 445 Balance 2700 2790 2180 365 - Objective General Appearance: positive: No acute distress, Alert Eyes Bilateral: positive: PERRL, EOMI ENT: positive: No signs of dehydration Neck: positive: No JVD. negative: Stiff neck Respiratory: positive: No respiratory distress. negative: Wheezes, Rales, Rhonchi Cardiovascular: positive: Regular rate & rhythm, Tachycardia (Occasionally. At about 106 sometimes. Usually when he is up and around walking in the room) Abdomen: positive: Non-tender, No organomegaly, Nml bowel sounds, No distention Skin: positive: Warm, Dry Extremities: positive: Full ROM, No pedal edema Neurologic/Psychiatric: positive: Oriented x3, CN's nml (2-12), Motor nml - Lab Results Fish Bones: 07/19/22 04:31 07/19/22 04:31 Other Labs: Lab Results x24hrs 07/20/22 07/20/22 07/19/22 Range/Units 11:42 07:31 20:35 POC Whole Bld Glucose 148 H 117 H 172 H (70 - 100) mg/dL 07/19/22 Range/Units 16:30 POC Whole Bld Glucose 140 H (70 - 100) mg/dL ABX Reporting Has patient been on IV antibiotics over the past 48 hours?: Yes Assessment/Plan - Problem List (1) MSSA bacteremia Impression: Blood cultures are positive for staph aureus, MSSA. He was positive July 12. July 13. And July 15. This is on Levaquin. He was initially on vancomycin but was switched to Levaquin because it was MSSA sensitive. Did 2 days of vancomycin/levaquin and changed to Ancef 07/18 when the sensitivities came back. Since then his HR down, RR down and needs less 02. ECHO does not show valvular heart disease. However, there is still the possible issue of needing a transesophageal echo. He doesnt have a port of central line He doesn't have a skin breakdown or cellulits Suspect he has Staph pna as a complication of influenza A pna. Plan: Ancef Day #3 today. Blood cultures were neg July 19 on Ancef. He is allergic to PCN and so far no reaction. Skin is w/o rash. Did 2 days of vancomycin and changed to Ancef 07/18, Current standard is to treat uncomplicated staph bacteremia with 14 days of IV antibiotic therapy. This is to start from the first negative blood culture. Repeat blood cultures were July 19 so his last day would be August 02. That is predicated on the question of a transesophageal echo. Some studies state that if there is no echo available the patient will need up to 4 weeks of IV antibiotic therapy. I am hoping that he can get a transesophageal echo in the outpatient setting. We [facility] at a critical access hospital and do not do transesophageal echoes. If he can get a AURELIA in the outpatient setting and it is negative, his end date is August 02. If he cannot get a AURELIA his end date will be August 16. PICC line consult requested. I have already notified anesthesia for tomorrow. They do not put PICC lines and on the weekend.I am also trying to get authorization to see if he could go home with Ancef 2 g every 8 hours. (2) Acute respiratory failure with hypoxia improving with less 02 requirement Due to viral pneumonia. And then developed secondary bacterial pneumonia. He had been tachypneic, and requiring high flow nasal cannula since this admission. I treated the underlying causes of infection with Tamiflu with his first stay (before he left [place]) and he completed the 5 day 07/17 (when he returned for readmit). He was getting vancomycin and Levaquin with readmit 07/16. He met sepsis criteria with tachycardia, fever, hypoxia with white cell count going down not up. Was requiring high flow nasal cannula at 40% on admit and 35% 06/22 7. We were able to downgrade to plain NC 10/29 after being on Ancef, and he is 88% on room air but 93%-97% with 3 liters. His white cell count is down to the basic neutropenia he always has. His heart rate is come down to the 90s. His respiratory rate has come down to 17-20 at rest and 24 with exertion. All of these are improving slowly over the last 48 hours. I will continue to provide oxygen support. He is a full code. (3) Secondary Pneumonia Impression: He was sent home AMA on Levaquin to cover MSSA. Readmitted quite quickly from home because of falls and hypoxia. His chest x-ray has patchy indistinct bilateral airspace opacities, right greater than left. Blood cultures are positive for MSSA so I feel his pna is secondary complication of influenza pna. Did 2 days of vancomycin and levaquin and changed to Ancef 07/18. Has been steadily improving starting the and today. He really, truly, is anxious to get home. He is depressed and he needs to take care of his business. Repeat blood cultures show Ancef is working and those are negative from July 19. Plan: Continue Ancef 2 g. As above, he will need 2 weeks of antibiotic therapy starting the which is the first set of negative cultures. Those will continue until August 02. The issue is going to be if he can get a transesophageal echo. If he cannot he may need antibiotics until the . Qualifiers: Pneumonia type: due to methicillin-sensitive Staphylococcus aureus (MSSA) Laterality: bilateral Lung location: unspecified part of lung Qualified Code(s): J15.211 - Pneumonia due to Methicillin susceptible Staphylococcus aureus Chronic/stable/resolved problems (4) Influenza A Impression: He did complete 5 days of Tamiflu with 07/17 dosing. He developed secondary pneumonia due to his immunocompromise status. (5) DM type 2 (diabetes mellitus, type 2) Impression: He is not on any medications on his home list for diabetes. It is diet controlled. Here we are following him with sliding scale insulin and he is stable. Glucose yesterday was 136, 140, 172. Today he is 117 and 148. No change in orders Qualifiers: Diabetes mellitus fci insulin use: without back end web developer use Diabetes mellitus complication status: without complication Qualified Code(s): E11.9 - Type 2 diabetes mellitus without complications (6) HTN (hypertension) Impression: He is usually on home medications of Cozaar, HydroDIURIL, and Norvasc. So far his blood pressure has stayed controlled without medication. Systolic is 119 this am. If he continues to be 138 or greater with today's BP, I will resume cozaar first. Qualifiers: Hypertension type: primary hypertension Qualified Code(s): I10 - Essential (primary) hypertension (7) Hypothyroid Impression: On his usual medications from home. 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 He was on Lovenox for DVT prophylaxis. I stopped the Lovenox and change him to [place]. He is ambulating in the room
[2022-07-20] MEDS: ACETAMINOPHEN 325 MG TABLET PO PRN (19:27)
[2022-07-20] MEDS: ZOLPIDEM 5 MG TABLET PO PRN (22:21)
[2022-07-20] MEDS: BENZONATATE 100 MG CAPSULE PO PRN (22:21)
[2022-07-20] MEDS: levoFLOXacin 750 MG/150 ML 750 MG/150 ML BAG IV SCH (22:24)
[2022-07-21] MEDS: guaiFENesin/CODEINE 5 ML UDC PO PRN ×2 (01:33→09:24)
[2022-07-21] MEDS: ACETAMINOPHEN 325 MG TABLET PO PRN (01:33)
[2022-07-21] MEDS: LORazepam 0.5 MG TABLET PO PRN (01:54)
[2022-07-21] MEDS: IPRATROPIUM/ALBUTEROL 3 ML NEB INH PRN (02:11)
[2022-07-21] MEDS: SODIUM CHLORIDE FLUSH 0.9% 10 ML SYRINGE IVP SCH ×2 (02:16→08:19)
[2022-07-21 05:55] LABS: BASOPHILS % (AUTO) 0.2 %; EOSINOPHILS # (AUTO) 0.1 10^3/uL (0.0-0.7); EOSINOPHILS % (AUTO) 1.4 %; HCT - HEMATOCRIT 27.6 % (42.0-52.0); LYMPHOCYTES % (AUTO) 23.2 %; MEAN CORPUSCULAR HEMOGLOBIN 34.5 pg (27.0-31.0); MEAN CORPUSCULAR HGB CONC 32.6 g/dL (32.0-36.0); MEAN CORPUSCULAR VOLUME 105.7 fL (80.0-94.0); MEAN PLATELET VOLUME 10.2 fL (7.4-11.4); MONOCYTES # (AUTO) 0.4 10^3/uL (0.0-1.0); MONOCYTES % (AUTO) 8.7 %; NEUTROPHILS # (AUTO) 2.8 10^3/uL (1.5-6.6); NEUTROPHILS % (AUTO) 65.3 %; PLT - PLATELET COUNT 49 10^3/uL (130-450); RED BLOOD COUNT 2.61 10^6/uL (4.70-6.10); RED CELL DISTRIBUTION WIDTH 15.5 % (12.0-15.0); WHITE BLOOD COUNT 4.3 x10^3/uL (4.8-10.8)
[2022-07-21 06:05] LABS: CALCIUM 7.9 mg/dL (8.5-10.3); CREATININE 0.9 mg/dL (0.6-1.2); POTASSIUM 3.7 mmol/L (3.5-5.0)
[2022-07-21] MEDS: LEVOTHYROXINE 25 MCG TABLET PO SCH (07:02)
[2022-07-21] MEDS: INSULIN LISPRO 300 UNIT/3 ML PEN SUBQ SCH ×2 (07:47→12:20)
--- NOTE | 2022-07-21 07:50 | PROVIDER PROGRESS NOTE ---
Subjective - Prog Note Date Prog Note Date: 07/21/22 Prog Note Time: 07:49 Current Medications - Current Medications Current Medications: Active Medications Acetaminophen (Acetaminophen 325 Mg Tablet) 650 mg PO Q4HR PRN PRN Reason: Pain 1 to 4, or Fever Last Admin: 07/21/22 01:33 Dose: 650 mg Albuterol/Ipratropium (Ipratropium/Albuterol 3 Ml Neb) 3 ml INH Q4HR PRN PRN Reason: Wheezing Last Admin: 07/21/22 02:11 Dose: 3 ml Benzonatate (Benzonatate 100 Mg Capsule) 100 mg PO TID PRN PRN Reason: Cough Last Admin: 07/20/22 22:21 Dose: 100 mg Bupropion HCl (Bupropion Sr 150 Mg Tablet) 300 mg PO DAILY [facility] Last Admin: 07/20/22 07:37 Dose: 300 mg Cholecalciferol (Cholecalciferol 25 Mcg Tablet) 50 mcg PO DAILY [facility] Last Admin: 07/20/22 07:38 Dose: 50 mcg Diphenoxylate HCl/Atropine (Diphenox/Atropine 2.5/0.025 Mg Tablet) 1 tab PO QID PRN PRN Reason: Diarrhea Last Admin: 07/20/22 11:38 Dose: 1 tab Guaifenesin/Codeine Phosphate (Guaifenesin/Codeine 5 Ml Udc) 5 ml PO Q6HR PRN PRN Reason: Cough Last Admin: 07/21/22 01:33 Dose: 5 ml Levofloxacin (Levaquin 750 Mg/150 Ml) 750 mg in 150 mls @ 100 mls/hr IV Q24H [facility] Last Infusion: 07/20/22 23:54 Dose: Infused Cefazolin Sodium 2 gm/ Sodium (Chloride) 50 mls @ 100 mls/hr IV Q8HR [facility] Last Admin: 07/21/22 07:02 Dose: 100 mls/hr Insulin Human Lispro (Insulin Lispro 300 Unit/3 Ml Pen) 1 - 9 unit SUBQ 0800, 1200,1700,2100 [facility]; Protocol Last Admin: 07/21/22 07:47 Dose: Not Given Levothyroxine Sodium (Levothyroxine 25 Mcg Tablet) 50 mcg PO QDAC [facility] Last Admin: 07/21/22 07:02 Dose: 50 mcg Lorazepam (Lorazepam 0.5 Mg Tablet) 0.5 mg PO Q6H PRN PRN Reason: Anxiety Last Admin: 07/21/22 01:54 Dose: 0.5 mg Multivitamins/Minerals (Multivitamin W/Minerals Tablet) 1 tab PO QDLUNCH [facility] Last Admin: 07/20/22 11:38 Dose: 1 tab Ondansetron HCl (Ondansetron 4 Mg/2 Ml Vial) 4 mg IVP Q6HR PRN PRN Reason: Nausea / Vomiting Oxymetazoline HCl (Oxymetazoline Hcl 100 Sprays Bottle) 2 sprays PARAM BID PRN PRN Reason: Nasal Congestion Last Admin: 07/17/22 20:08 Dose: 2 sprays Saccharomyces Boulardii (Saccharomyces Boulardii 250 Mg Capsule) 250 mg PO BIDWM [facility] Last Admin: 07/20/22 17:08 Dose: 250 mg Sodium Chloride (Sodium Chloride Flush 0.9% 10 Ml Syringe) 10 ml IVP PRN PRN PRN Reason: NEEDED PER PROVIDER ORDERS Last Admin: 07/20/22 05:28 Dose: 10 ml Sodium Chloride (Sodium Chloride Flush 0.9% 10 Ml Syringe) 10 ml IVP 0100,0900,1700 [facility] Last Admin: 07/21/22 02:16 Dose: 10 ml Throat Lozenges (Benzocaine/Menthol Lozenge) 1 lozenge MM Q2HR PRN PRN Reason: Throat pain Last Admin: 07/18/22 03:51 Dose: 1 lozenge Zolpidem Tartrate (Zolpidem 5 Mg Tablet) 5 mg PO QPM PRN PRN Reason: Insomnia Last Admin: 07/20/22 22:21 Dose: 5 mg Amlodipine Besylate [Norvasc] 10 mg PO DAILY 07/12/22 Levothyroxine Sodium [Synthroid] 50 mcg PO QDAC 07/12/22 Losartan Potassium [Cozaar] 100 mg PO DAILY 07/12/22 Omeprazole Magnesium 40 mg PO DAILY 07/12/22 buPROPion [Wellbutrin Sr] 300 mg PO DAILY 07/12/22 hydroCHLOROthiazide [Hydrodiuril] 25 mg PO DAILY 07/12/22 Objective - Vital Signs/Intake & Output Vital Signs: Vital Signs x48h Pulse Resp O2 Flow Rate 07/21/22 02:11 99 20 2 Intake & Output: Intake & Output 07/18/22 07/19/22 07/20/22 07/21/22 23:59 23:59 23:59 23:59 Intake Total 3190 2380 2140 300 Output Total 400 200 445 Balance 2790 2180 1695 300 - Lab Results Fish Bones: 07/21/22 05:22 07/21/22 05:22 Other Labs: Lab Results x24hrs 07/21/22 07/21/22 07/21/22 Range/Units 07:32 05:22 05:22 WBC 4.3 L (4.8-10.8) x10^3/uL RBC 2.61 L (4.70-6.10) 10^6/uL Hgb 9.0 L (14.0-18.0) g/dL Hct 27.6 L (42.0-52.0) % MCV 105.7 H (80.0-94.0) fL MCH 34.5 H (27.0-31.0) pg MCHC 32.6 (32.0-36.0) g/dL RDW 15.5 H (12.0-15.0) % Plt Count 49 L (130-450) 10^3/uL MPV 10.2 (7.4-11.4) fL Neut # (Auto) 2.8 (1.5-6.6) 10^3/uL Lymph # (Auto) 1.0 L (1.5-3.5) 10^3/uL Major # (Auto) 0.4 (0.0-1.0) 10^3/uL Eos # (Auto) 0.1 (0.0-0.7) 10^3/uL Baso # (Auto) 0.0 (0.0-0.1) 10^3/uL Absolute Nucleated RBC 0.00 x10^3/uL Nucleated RBC % 0.0 /100WBC Sodium 136 (135-145) mmol/L Potassium 3.7 (3.5-5.0) mmol/L Chloride 99 L (101-111) mmol/L Carbon Dioxide 31 (21-32) mmol/L Anion Gap 6.0 (6-13) BUN 12 (6-20) mg/dL Creatinine 0.9 (0.6-1.2) mg/dL Estimated GFR (MDRD) 87 L (>89) Glucose 123 H (70-100) mg/dL POC Whole Bld Glucose 109 H (70 - 100) mg/dL Calcium 7.9 L (8.5-10.3) mg/dL 07/20/22 07/20/22 07/20/22 Range/Units 21:02 16:52 11:42 WBC (4.8-10.8) x10^3/uL RBC (4.70-6.10) 10^6/uL Hgb (14.0-18.0) g/dL Hct (42.0-52.0) % MCV (80.0-94.0) fL MCH (27.0-31.0) pg MCHC (32.0-36.0) g/dL RDW (12.0-15.0) % Plt Count (130-450) 10^3/uL MPV (7.4-11.4) fL Neut # (Auto) (1.5-6.6) 10^3/uL Lymph # (Auto) (1.5-3.5) 10^3/uL Major # (Auto) (0.0-1.0) 10^3/uL Eos # (Auto) (0.0-0.7) 10^3/uL Baso # (Auto) (0.0-0.1) 10^3/uL Absolute Nucleated RBC x10^3/uL Nucleated RBC % /100WBC Sodium (135-145) mmol/L Potassium (3.5-5.0) mmol/L Chloride (101-111) mmol/L Carbon Dioxide (21-32) mmol/L Anion Gap (6-13) BUN (6-20) mg/dL Creatinine (0.6-1.2) mg/dL Estimated GFR (MDRD) (>89) Glucose (70-100) mg/dL POC Whole Bld Glucose 199 H 134 H 148 H (70 - 100) mg/dL Calcium (8.5-10.3) mg/dL ABX Reporting Has patient been on IV antibiotics over the past 48 hours?: Yes
[2022-07-21] MEDS: SACCHAROMYCES BOULARDII 250 MG CAPSULE PO SCH (08:18)
[2022-07-21] MEDS: CHOLECALCIFEROL 25 MCG TABLET PO SCH (08:18)
[2022-07-21] MEDS: buPROPion SR 150 MG TABLET PO SCH (08:18)
[2022-07-21] MEDS: DIPHENOX/ATROPINE 2.5/0.025 MG TABLET PO PRN (09:24)
--- NOTE | 2022-07-21 11:46 | Discharge Plan ---
Discharge Plan Problem Reviewed?: Yes Disposition: Home, Self Care Condition: Stable Prescriptions: Cefazolin 2G/50Ml 0.9% Ns [Ancef 2 Grams/50Ml] 2 gm IV Q8H #42 ml Diet: Regular Activity Restrictions: Activity as Tolerated Shower Restrictions: Yes (follow care instructions from nursing about PICC line) Driving Restrictions: No Health Concerns: You were admitted July 12 with sepsis due to viral pneumonia. You had a very low oxygen level, and were struggling to breathe. You left AGAINST MEDICAL ADVICE July 15 and returned that day because you were continuing to struggle to breathe, and kept on falling at home. You were so weak you could not stay up. We do feel you had a secondary bacterial pneumonia from staff aureus compl icating your influenza a viral pneumonia. It has resulted in staph growing in your blood. One of the things we worry about with staff is if it in fact your heart valves. Repeat blood cultures have been negative on the Ancef. An echocardiogram done on top of your chest, called a transthoracic echo, shows no vegetations on your heart valves. As such we think you can go home on 14 days of antibiotic therapy for the staff aureus in your blood and for the pneumonia. You have already completed tamiflu treatment with steroids for the influenza pneumonia. However, there are some studies that show that you really need something called a transesophageal echo. This is an echocardiogram done through an endoscopy procedure where you are sedated, and the echo probe goes down into your esophagus behind your heart. If that is negative you can safely assume you only need 14 days of antibiotic therapy. If it is positive you need 4 weeks of antibiotic therapy. If we cannot get a transesophageal echo on you, you may need 4 weeks of antibiotic therapy because we will have to guess. Plan of Treatment: 1. Complete 14 days of antibiotic therapy starting July 19. End date is 08/02/22. 2. See your primary care provider, Dr. Franklin, to see if he can schedule you for a transesophageal echo to confirm whether you need 14 days of antibiotic therapy or 4 weeks of antibiotic therapy. I called his office today And spoke to him. He knows he has to get you scheduled for this echocardiogram. I cannot stress how important it is you get this test done. It means a difference between 2 weeks of antibiotic therapy or 4 to 6 weeks of antibiotic therapy. If you decide not to follow through and want to take a chance on 2 weeks of antibiotic therapy, I must warn you that if the staph aureus bacteremia comes back because you have a heart valve infection, it can be life-threatening. 3. The antibiotic you will be using Ancef 2grams 3 times a day intravenously. We have set you up with infusion solutions and they have stated they could start you today. 4. Please take an [id number] probiotic to help with any change in your bowel that you developed from the Ancef 5. Once your antibiotic therapy is over, your PICC line may be discontinued by Dr. 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 Assessment: Patient is alert, oriented, lucid speech. Understands care goals. No Smoking: If you smoke, Please STOP! Call for help. Follow-up with: AAMIR FRANKLIN MD [Primary Care Provider] -
[2022-07-21] MEDS: MULTIVITAMIN W/MINERALS TABLET PO SCH (12:15)
--- NOTE | 2022-07-21 13:45 | DISCHARGE SUMMARY ---
Discharge Summary Admit Date: 07/15/22 Discharge Date: 07/21/22 Discharging Provider: Carmela Hightower MD Primary Care Provider: Ralph Franklin MD Code Status: Attempt Resuscitation Condition at Discharge: Stable Discharge Disposition: 01 Home, Self Care - DIAGNOSES Discharge Diagnoses with Status of Each Condition: 1. Acute respiratory failure with hypoxemia due to #2 and #3 2. Influenza A pneumonia resolved 3. MSSA pneumonia secondary to influenza A 4. MSSA bacteremia 5. Type 2 diabetes mellitus, controlled, without complication and without long- term use of insulin 6. Hypertension 7. Hypothyroidism 8. Thrombocytopenia 9. AML in remission 10. Reactive depression - HPI History of Present Illness: Mr Carrillo is a 57 yo M with hx AML s/p BMP 2009 in remission with chronic pancytopenia, HTN, DM II. Presents to ER with c/o shortness of breath. Pt was admitted to hospital/ICU 07/12-07/15, he left AMA yesterday afternoon. Required BIPAP while in ICU, was weaned down to 4 L NC at time of leaving hospital AMA, no home O2. Was treated for sepsis, influenza A pneumonia, MSSA bacteremia. Pt reports that since being at home he has felt very short of breath, weak. Fell twice due to loss of balance, denies LOC. Family encouraged him to return to ER. Pt reports he is feeling short of breath, has cp with cough, sputum production. Denies hemoptysis. Denies recent fevers/chills, had fever last week. Reports his family at home has been sick with viral illness as well. O2 sats 90% on RA, currently on 2 L NC. - Past Medical History Cardiovascular: reports: Hypertension Respiratory: reports: None Neuro: reports: None Endocrine/Autoimmune: reports: Type 2 diabetes GI: reports: Cirrhosis : reports: None HEENT: reports: Other Psych: reports: Depression Musculoskeletal: reports: None Derm: reports: None MRSA Hx?: Yes - CONSULTS | PROCEDURES Procedures: Chest x-ray has patchy indistinct bilateral airspace opacities, right greater than left. Blood cultures July 15 with staff aureus Blood cultures July 19 negative Echocardiogram July 17 has an ejection fraction of 55 to 60%. Mild right ventricular enlargement. This is a preliminary report. Final is pending. Mild atrial enlargement. No valvular heart disease and no vegetations noted. However subtle lesions "cannot be excluded". PICC line placement July 21 - HOSPITAL COURSE Hospital Course: He was admitted July 12 and discharged July 15 AMA. He was admitted with influenza pneumonia and severe hypoxemia. Blood cultures were positive for staph. Treatment of that varied between Levaquin and vancomycin. He ended up being on Levaquin according to cultures and sensitivities. He left AMA July 15 and then returned back to the hospital that day after being too hypoxic and too weak and falling at home. We continue to treat him for staph bacteremia. We transition him to a more standard therapeutic regimen of Ancef once sensitivities showed him to be sensitive to penicillin. We also completed influenza A treatment with Tamiflu. He has gradually improved and tachycardia and hypoxemia has gotten better. However he still requires oxygen. On room air saturations are 92% with a heart rate of 104. On ambulation his room air sats dropped to 87% with a heart rate of 105. Giving him oxygen with ambulation results and an O2 sat of 92% with 2 L and a pulse of 104. As such I am sending the patient home with 2 L with exertion for diagnosis of MSSA pneumonia. I anticipate this will be a temporary oxygen requirement not a permanent oxygen requirement. Repeat blood cultures on Ancef are negative. An echocardiogram was done with his previous admission and that echocardiogram was negative for vegetations and he had an intact left ventricular ejection fraction. The patient can now proceed to being discharged as a simple MSSA pneumonia for 2 weeks of antibiotic therapy. He will be on Ancef 2 g 3 times daily starting from the date of July 19 negative blood cultures. However, the question of whether he has a negative t ransesophageal echo is there. Literature suggest that if it is an uncomplicated MSSA bacteremia the patient only needs 2 weeks of antibiotic therapy once the source is identified. However if you cannot identify whether they have vegetations or not the patient will need 4 weeks of antibiotic therapy. I have spoken with the patient's provider, Dr. Ralph navarro, at [facility]. I have explained to him that the patient needs a transesophageal echo. If the echo is negative the patient needs 2 weeks of therapy. If the echo is positive he will need 4 to 6 weeks of therapy. The patient is highly motivated to return to home. 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 As such she will be sent home with these antibiotics, a PICC line was placed on the day of discharge, and to follow-up with Dr. Ratliff. At discharge temperature is 37.1. Heart rate varies between 93 and 105. Blood pressure 135/72. Respirations 18. 92% on room air. He is an alert, oriented white male, balding. Muted affect. He is gotten very depressed over the last couple of days as he tries to figure out what to do about his personal situation with work. Lungs are completely clear. No increased respiratory effort. The subtle tachypnea he had up until July 18 is resolved. The tachycardia that he had until July 19 is resolved. Abdomen is obese, soft, nontender. Normal bowel sounds. Extremities are without edema. Greater than 30 minutes was spent coordinating discharge. - ALLERGIES Allergies/Adverse Reactions: Allergies Allergy/AdvReac Type Severity Reaction Status Date / Time Penicillins Allergy Rash Verified 07/15/22 22:14 - MEDICATIONS Home Medications: Ambulatory Orders Medication Instructions Recorded Confirmed Amlodipine Besylate [Norvasc] 10 mg PO DAILY 07/12/22 07/15/22 Levothyroxine Sodium [Synthroid] 50 mcg PO QDAC 07/12/22 07/15/22 Losartan Potassium [Cozaar] 100 mg PO DAILY 07/12/22 07/15/22 Omeprazole Magnesium 40 mg PO DAILY 07/12/22 07/15/22 buPROPion [Wellbutrin Sr] 300 mg PO DAILY 07/12/22 07/15/22 hydroCHLOROthiazide [Hydrodiuril] 25 mg PO DAILY 07/12/22 07/15/22 Acetaminophen [Tylenol] 650 mg PO Q4HR PRN tab 07/15/22 07/15/22 guaiFENesin [Mucinex] 600 mg PO BID tab 07/15/22 07/15/22 Cefazolin 2G/50Ml 0.9% Ns [Ancef 2 2 gm IV Q8H #42 ml 07/20/22 Grams/50Ml] - LABS Result Diagrams: 07/21/22 05:22 07/21/22 05:22
[2022-07-21] MEDS: SODIUM CHLORIDE FLUSH 0.9% 10 ML SYRINGE IVP PRN (15:00)
[2022-07-21 16:08] VITALS: BP 138/70
--- NOTE | 2022-07-21 16:38 | ANESTHESIA PROCEDURE NOTE ---
Anesth Central Line Template - Central Line Central Line Preparation: Consent Obtained, Time out completed, Ultrasound used, Sterile prep and drape Central line location: Left Basilic Central line type: PICC Double Lumen (5 FR dual lumen, trimmed to 46cm) Central line catheter tip site resides: Superior vena cava (SVC) Central line aftercare: Chlorhexidine disc placed, Secured, Placement confirmed (with p-wave analysis), No complications, Bundle checklist complete, Pt tolerated well Other Info/Details: Left arm prepped with chlorohexadine. Full sterile gown, gloves, mask and drape utilized. The left arm was localized with 4ml of 1% lidocaine and the left basilic vein was access using ultrasound to guide needle. Wire advanced with ease. A 5FR dual lumen catheter, trimmed to 46cm was inserted. P-wave analysis indicated tip was in good position in the SVC (see anesthesia record). No catheter exposed. Both ports aspirate blood and flush with ease. Line secured. Patient tolerated well.
== END 2022-07-21 16:55 | disposition home or self-care (01) | DRG 177 ==
LOC: ED 22:01 → MS2 07-16 02:48
PROVIDERS: ADMIT Student in an Organized Health Care Education/Training Program; ATTEND Specialist
PROC: 02HV33Z Insertion of Infusion Device into Superior Vena Cava, Percutaneous Approach (ICD-10-PCS; principal; 2022-07-21)
DX: J15.211 Pneumonia due to Methicillin susceptible Staphylococcus aureus (principal); J96.01 Acute respiratory failure with hypoxia; R78.81 Bacteremia; C92.01 Acute myeloblastic leukemia, in remission; D61.818 Other pancytopenia; Z94.81 Bone marrow transplant status; J10.01 Influenza due to other identified influenza virus with the same other identified influenza virus pneumonia; E11.9 Type 2 diabetes mellitus without complications; I10 Essential (primary) hypertension; E03.9 Hypothyroidism, unspecified; F32.9 Major depressive disorder, single episode, unspecified; E66.9 Obesity, unspecified; F41.9 Anxiety disorder, unspecified; G47.00 Insomnia, unspecified; R11.2 Nausea with vomiting, unspecified; R19.7 Diarrhea, unspecified; Z79.84 Long term (current) use of oral hypoglycemic drugs; Z79.890 Hormone replacement therapy; Z79.899 Other long term (current) drug therapy; Z91.81 History of falling
CPT/HCPCS: 36415; 36600; 71045; 80048; 80053; 81003; 82803; 83605; 83690; 83880; 85025; 87040; 87150; 87181; 93306; 94640; 94664; 94761; 96365; 96375; 97161; 99282; 99285; A9270; C1751; J1650; J2060; J3370; J7040; 81001; 87086

== ENCOUNTER 2022-07-28 08:00 | Outpatient (CLI) | payer BC ==
[2022-07-28 17:15] LABS: ALBUMIN 2.4 g/dL (3.2-5.5); ALBUMIN/GLOBULIN RATIO 0.5 (1.0-2.2); ALKALINE PHOSPHATASE 54 IU/L (42-121); ALT ALANINE AMINOTRANSFERASE < 10 IU/L (10-60); AST ASPARTATE AMINOTRANSFERASE 38 IU/L (10-42); BILIRUBIN,TOTAL 0.6 mg/dL (0.2-1.0); BUN - BLOOD UREA NITROGEN 25 mg/dL (6-20); CALCIUM 8.3 mg/dL (8.5-10.3); CARBON DIOXIDE - CO2 27 mmol/L (21-32); CHLORIDE 97 mmol/L (101-111); CREATININE 1.3 mg/dL (0.6-1.2); GFR - MDRD 57 (>89); GLUCOSE 173 mg/dL (70-100); POTASSIUM 4.3 mmol/L (3.5-5.0); SODIUM 131 mmol/L (135-145); TOTAL PROTEIN 7.1 g/dL (6.7-8.2)
[2022-07-28 17:35] LABS: BASOPHILS % (AUTO) 0.3 %; EOSINOPHILS # (AUTO) 0.1 10^3/uL (0.0-0.7); HCT - HEMATOCRIT 28.1 % (42.0-52.0); HGB - HEMOGLOBIN 8.9 g/dL (14.0-18.0); LYMPHOCYTES # (AUTO) 1.3 10^3/uL (1.5-3.5); LYMPHOCYTES % (AUTO) 40.1 %; MEAN CORPUSCULAR HEMOGLOBIN 34.2 pg (27.0-31.0); MEAN CORPUSCULAR HGB CONC 31.7 g/dL (32.0-36.0); MEAN CORPUSCULAR VOLUME 108.1 fL (80.0-94.0); MEAN PLATELET VOLUME 11.1 fL (7.4-11.4); MONOCYTES # (AUTO) 0.4 10^3/uL (0.0-1.0); MONOCYTES % (AUTO) 10.6 %; NEUTROPHILS # (AUTO) 1.5 10^3/uL (1.5-6.6); NEUTROPHILS % (AUTO) 45.4 %; PLT - PLATELET COUNT 135 10^3/uL (130-450); RED CELL DISTRIBUTION WIDTH 15.7 % (12.0-15.0); WHITE BLOOD COUNT 3.3 x10^3/uL (4.8-10.8)
== END 2022-07-28 23:59 | disposition home or self-care (01) ==
LOC: LAB.R 08:00
PROVIDERS: ATTEND Family Medicine
DX: A41.9 Sepsis, unspecified organism (principal)
CPT/HCPCS: 80053; 85025

== ENCOUNTER 2022-08-04 08:00 | Outpatient (CLI) | payer BC ==
[2022-08-04 18:05] LABS: BASOPHILS % (AUTO) 0.3 %; EOSINOPHILS % (AUTO) 5.4 %; HCT - HEMATOCRIT 29.1 % (42.0-52.0); HGB - HEMOGLOBIN 9.4 g/dL (14.0-18.0); MEAN CORPUSCULAR HEMOGLOBIN 35.1 pg (27.0-31.0); MEAN CORPUSCULAR HGB CONC 32.3 g/dL (32.0-36.0); MEAN CORPUSCULAR VOLUME 108.6 fL (80.0-94.0); MEAN PLATELET VOLUME 10.3 fL (7.4-11.4); MONOCYTES % (AUTO) 11.1 %; NEUTROPHILS % (AUTO) 31.9 %; PLT - PLATELET COUNT 145 10^3/uL (130-450); RED BLOOD COUNT 2.68 10^6/uL (4.70-6.10); RED CELL DISTRIBUTION WIDTH 16.4 % (12.0-15.0)
[2022-08-04 18:30] LABS: SLIDE REVIEW? Indicated
[2022-08-04 18:31] LABS: ABNORMAL LYMPHS % (MANUAL) 0 %; BAND NEUTROPHILS % (MANUAL) 0 %
[2022-08-04 18:41] LABS: ALBUMIN 2.5 g/dL (3.2-5.5); ALBUMIN/GLOBULIN RATIO 0.5 (1.0-2.2); ALKALINE PHOSPHATASE 66 IU/L (42-121); ALT ALANINE AMINOTRANSFERASE < 10 IU/L (10-60); AST ASPARTATE AMINOTRANSFERASE 49 IU/L (10-42); BILIRUBIN,TOTAL 0.4 mg/dL (0.2-1.0); BUN - BLOOD UREA NITROGEN 16 mg/dL (6-20); CALCIUM 8.3 mg/dL (8.5-10.3); CARBON DIOXIDE - CO2 26 mmol/L (21-32); CHLORIDE 100 mmol/L (101-111); CREATININE 0.9 mg/dL (0.6-1.2); GFR - MDRD 87 (>89); GLUCOSE 175 mg/dL (70-100); POTASSIUM 3.8 mmol/L (3.5-5.0); SODIUM 133 mmol/L (135-145); TOTAL PROTEIN 7.2 g/dL (6.7-8.2)
[2022-08-04 21:19] LABS: EOSINOPHILS # (MANUAL) 0.3 10^3/uL (0-0.7); LYMPHOCYTES # (MANUAL) 1.3 10^3/uL (1.5-3.5); LYMPHOCYTES % (MANUAL) 44 %; MONOCYTES # (MANUAL) 0.4 10^3/uL (0.0-1.0)
[2022-08-04 21:22] LABS: DIFFERENTIAL COMMENT MANUAL DIFFERENTIAL; PLATELET ESTIMATE, MANUAL NORMAL (130-450,000) (NORMAL); PLATELET MORPHOLOGY NORMAL APPEARANCE (NORMAL)
== END 2022-08-04 23:59 | disposition home or self-care (01) ==
LOC: LAB.R 08:00
PROVIDERS: ATTEND Family Medicine
DX: A41.9 Sepsis, unspecified organism (principal)
CPT/HCPCS: 80053; 85025

== ENCOUNTER 2022-08-11 11:22 | Outpatient (CLI) | payer BC ==
[2022-08-11 11:42] LABS: BASOPHILS % (AUTO) 0.8 %; EOSINOPHILS # (AUTO) 0.1 10^3/uL (0.0-0.7); EOSINOPHILS % (AUTO) 3.1 %; HCT - HEMATOCRIT 32.4 % (42.0-52.0); HGB - HEMOGLOBIN 10.5 g/dL (14.0-18.0); LYMPHOCYTES # (AUTO) 1.7 10^3/uL (1.5-3.5); LYMPHOCYTES % (AUTO) 43.6 %; MEAN CORPUSCULAR HEMOGLOBIN 34.3 pg (27.0-31.0); MEAN CORPUSCULAR HGB CONC 32.4 g/dL (32.0-36.0); MEAN CORPUSCULAR VOLUME 105.9 fL (80.0-94.0); MEAN PLATELET VOLUME 9.8 fL (7.4-11.4); MONOCYTES # (AUTO) 0.5 10^3/uL (0.0-1.0); MONOCYTES % (AUTO) 13.8 %; NEUTROPHILS # (AUTO) 1.5 10^3/uL (1.5-6.6); NEUTROPHILS % (AUTO) 38.4 %; PLT - PLATELET COUNT 129 10^3/uL (130-450); RED BLOOD COUNT 3.06 10^6/uL (4.70-6.10); RED CELL DISTRIBUTION WIDTH 16.4 % (12.0-15.0); WHITE BLOOD COUNT 3.8 x10^3/uL (4.8-10.8)
[2022-08-11 11:50] LABS: ALBUMIN 3.1 g/dL (3.2-5.5); ALBUMIN/GLOBULIN RATIO 0.7 (1.0-2.2); BILIRUBIN,TOTAL 0.6 mg/dL (0.2-1.0); CALCIUM 8.9 mg/dL (8.5-10.3); CREATININE 0.9 mg/dL (0.6-1.2); TOTAL PROTEIN 7.3 g/dL (6.7-8.2)
== END 2022-08-11 11:23 | disposition home or self-care (01) ==
LOC: LAB.R 11:22
PROVIDERS: ATTEND Family Medicine
DX: A41.9 Sepsis, unspecified organism (principal)
CPT/HCPCS: 80053; 85025

== ENCOUNTER 2022-08-18 14:38 | Outpatient (CLI) | payer BC ==
[2022-08-18 14:47] LABS: BASOPHILS % (AUTO) 0.7 %; EOSINOPHILS # (AUTO) 0.2 10^3/uL (0.0-0.7); EOSINOPHILS % (AUTO) 6.3 %; HGB - HEMOGLOBIN 10.6 g/dL (14.0-18.0); LYMPHOCYTES # (AUTO) 1.2 10^3/uL (1.5-3.5); LYMPHOCYTES % (AUTO) 39.7 %; MEAN CORPUSCULAR HEMOGLOBIN 35.6 pg (27.0-31.0); MEAN CORPUSCULAR HGB CONC 33.1 g/dL (32.0-36.0); MEAN CORPUSCULAR VOLUME 107.4 fL (80.0-94.0); MEAN PLATELET VOLUME 10.1 fL (7.4-11.4); MONOCYTES # (AUTO) 0.5 10^3/uL (0.0-1.0); NEUTROPHILS # (AUTO) 1.1 10^3/uL (1.5-6.6); PLT - PLATELET COUNT 103 10^3/uL (130-450); RED BLOOD COUNT 2.98 10^6/uL (4.70-6.10); RED CELL DISTRIBUTION WIDTH 16.8 % (12.0-15.0)
[2022-08-18 15:24] LABS: ALBUMIN/GLOBULIN RATIO 0.7 (1.0-2.2); BILIRUBIN,TOTAL 0.7 mg/dL (0.2-1.0); CALCIUM 9.2 mg/dL (8.5-10.3); CREATININE 0.8 mg/dL (0.6-1.2); POTASSIUM 4.4 mmol/L (3.5-5.0); TOTAL PROTEIN 7.3 g/dL (6.7-8.2)
== END 2022-08-18 14:39 | disposition home or self-care (01) ==
LOC: LAB.R 14:38
PROVIDERS: ATTEND Family Medicine
DX: A41.9 Sepsis, unspecified organism (principal)
CPT/HCPCS: 80053; 85025

== ENCOUNTER 2022-08-25 15:14 | Outpatient (CLI) | payer BC ==
[2022-08-25 15:29] LABS: BASOPHILS % (AUTO) 0.6 %; EOSINOPHILS # (AUTO) 0.1 10^3/uL (0.0-0.7); EOSINOPHILS % (AUTO) 3.3 %; HCT - HEMATOCRIT 32.2 % (42.0-52.0); HGB - HEMOGLOBIN 10.4 g/dL (14.0-18.0); LYMPHOCYTES # (AUTO) 1.7 10^3/uL (1.5-3.5); LYMPHOCYTES % (AUTO) 51.7 %; MEAN CORPUSCULAR HEMOGLOBIN 34.2 pg (27.0-31.0); MEAN CORPUSCULAR HGB CONC 32.3 g/dL (32.0-36.0); MEAN CORPUSCULAR VOLUME 105.9 fL (80.0-94.0); MEAN PLATELET VOLUME 10.1 fL (7.4-11.4); MONOCYTES # (AUTO) 0.4 10^3/uL (0.0-1.0); MONOCYTES % (AUTO) 11.1 %; NEUTROPHILS # (AUTO) 1.1 10^3/uL (1.5-6.6); PLT - PLATELET COUNT 131 10^3/uL (130-450); RED BLOOD COUNT 3.04 10^6/uL (4.70-6.10); RED CELL DISTRIBUTION WIDTH 16.2 % (12.0-15.0); WHITE BLOOD COUNT 3.3 x10^3/uL (4.8-10.8)
[2022-08-25 15:48] LABS: ALBUMIN 3.2 g/dL (3.2-5.5); ALBUMIN/GLOBULIN RATIO 0.8 (1.0-2.2); BILIRUBIN,TOTAL 0.6 mg/dL (0.2-1.0); CREATININE 0.9 mg/dL (0.6-1.2); TOTAL PROTEIN 7.2 g/dL (6.7-8.2)
== END 2022-08-25 15:15 | disposition home or self-care (01) ==
LOC: LAB.R 15:14
PROVIDERS: ATTEND Family Medicine
DX: A41.9 Sepsis, unspecified organism (principal)
CPT/HCPCS: 80053; 85025